=== PATIENT | female | born 1970 | race Caucasian/White ===

== ENCOUNTER 2025-03-13 09:17 | Outpatient (CLI) | payer OTHER, SELFPAY ==
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
--- OUTSIDE RECORDS SUMMARY | 2025-03-13 09:23 | XMS_ITS | Encounter Summary ---
Author Name [facility] [place] Address [address] [place] [address] Care Team Providers Care Specimen Technician Name Role Phone JAHAIRA NIETO Primary Care [...] Patient's Relationship to Policy Ritter [facility] 2024 [facility] Nov 07, 2024 [employer] [id number] VITO MUSTAFA PATIENT Selected Encounter This section includes the information on record at [place] for the Encounter. Date/Time Encounter Type Encounter Description Reason Provider Source April 04, 2024 09:30 AM PSYTX W PT 45 MINUTES [facility] INDIV ICD-10-CM F43.20 Adjustment disorder, unspecified DANIELLE SAVAGE Radha Encounter Template Text not used by [place] Assessments - Encounter Diagnoses This section includes the primary and secondary diagnoses documented for the Encounter. Date/Time Primary/Secondary Diagnosis Diagnosis Name Provider Source April 04, 2024 03:30 PM PRIMARY Adjustment disorder, unspecified DANIELLE SAVAGE [facility] Plan of Treatment: Future Appointments (+ 6 months) and Future Tests (+/- 45 days) The Plan of Treatment section includes future care activities for the patient from all [place] treatmentfacilities. This section includes future appointments and future orders which are active, pending or scheduled. Future Appointments This section includes appointments that were scheduled to occur 6 months from the date of the Encounter, up to a maximum of 20 appointments. The data comes from all [place] treatment facilities. Appointment Date/Time Appointment Type Appointme nt Facility Name Apr 18, 2024 09:30 AM AM[facility]ULATORY [facility] May 31, 2024 09:30 AM AMBULATORY [facility] Jun 07, 2024 09:30 AM AM[facility]ORY [facility] Jul 02, 2024 02:00 PM AMBULATORY - [facility]RY [facility] Aug 01, 2024 09:00 AM AMBULATORY - REHAB MEDICIN E [facility] Aug 07, 2024 10:30 AM AMBULATORY - PSYCHIATRY [facility] Aug 21, 2024 09:30 AM AMBULATORY - PSYCHIATRY [facility] Aug 30, 2024 09:30 AM AMBULATORY - REHAB MEDICIN E [facility] Sep 04, 2024 09:30 AM AM[facility]ULATORY - [facility]RY [facility] Sep 18, 2024 09:30 AM AM[facility]ORY [facility]RY [facility] Social History: Smoking Status (Most current) and Tobacco Use (All prior to encounter date) This section includes the most current, and the historical, smoking and tobacco- related health factors from the [place] facility where the Encounter took place. Current Smoking Status This section includes the most current smoking, or tobacco-related health factor, from the [place] facility where the Encounter took place. Date/Time Current Smoking Status Comment Samy brandt Jan 19, 2024 09:30 AM VA-TOBACCO FORMER USER [facility] Tobacco Use History This section includes a history of the smoking, or tobacco-related health factors, that were collected on or before the date of the Encounter. The data comes from the [place] facility where the Encounter took place. Date/Time Smoking Status/Tobacco Use Comment F accharu Jan 19, 2024 09:30 AM VA-TOBACCO QUIT 15 YRS OR MORE [facility] Encounter Notes: All associated encounter notes This section contains the clinical notes associated to the Encounter. Date/Time Encounter Note(s) Provider Source April 04, 2024 03:39 PM ADDENDUM: LOCAL TITLE: Addendum STANDARD TITLE: ADDENDUM DATE OF NOTE: APRIL 04, 2024@15:39:08 ENTRY DATE: APRIL 04, 2024@15:39:09 AUTHOR: DANIELLE SAVAGE EXP COSIGNER: URGENCY: STATUS: COMPLETED Per 's request, please schedule an appointment with Danielle Savage on 04/18/24 at 9;30am in [facility]-. thanks /es/ DANIELLE SAVAGE Signed: 04/04/2024 15:40 Receipt Acknowledged By: 04/04/2024 15:50 /es/ JERRICA ESPARZA MSA --- Original Document --- 04/04/24 [facility] BRIEF THERAPY NOTE: [facility] Brief Therapy Session #4 Session Date and Time: 04/04/24 at 9:30am Session Length: 45 minutes Session Type: F2F Diagnosis: Adjustment Disorder, unspecified Review of Presenting Problem Huntington continuing to attend brief therapy treatment in [facility] in order to address transitional stressors. This is session 4 of 6 of this episode of care. Risk Assessment (e.g., lethality, suicidality/homicidality): C-SSRS Screening [place]-Suicide Severity Rating Scale (C-SSRS Screener) 1. Over [...] required due to responses to other questions. Brief Mental Status Exam (as applicable) Appearance and Behavior: casual dress, normal grooming, and hygiene Mood/Affect: sad/ angry ; tearful affect Sensorium (orientation, memory, concentration): Ox3 Intellectual Functioning: WNL; no deficits noted Thought Processes/Regulation: goal-directed and logical was reminded of the need to assess progress since last appointment and assess current status of presenting concern, which will be used to adjust treatment interventions if needed and inform primary care team of next steps. Measurement-Based Care: PHQ-9: Date Instrument Raw Trans Scale 03/21/2024 09:32 PHQ9 4 PHQ9 02/22/2024 09:36 PHQ9 2 PHQ9 02/08/2024 09:55 PHQ9 3 PHQ9 JERAMIE-7: Date Instrument Raw Trans Scale 03/21/2024 09:32 JERAMIE-7 5 Anxiety 02/22/2024 09:36 JERAMIE-7 5 Anxiety 02/08/2024 09:55 JERAMIE-7 4 Anxiety PCL-5: Date Instrument Raw Trans Scale 04/04/2024 14:52 PCL-5 58 PCL-5 AUDIT-C: Date Instrument Raw Trans Scale 01/19/2024 09:30 AUDC 1 Total was administered the following self-report instruments to further assess identified area of concern and the use of these intruments to assist in guiding treatment planning and assess progress was discussed with the . PTSD Checklist-5 (PCL-5; Trauma Related Symptoms): (Note: 0-10: Minimal; 11-20: Mild; 21-40: Moderate; 41-60: Severe; 61-80: Very Severe symptoms) Pain Measure reported pain to be a significant concern to address today and reports the following pain levels related to hip Homework Review Discussed with Huntington progress on interventions agreed upon at last appointment. Functional Assessment/Progress Toward Goals/Session Content ------ Discussed with Huntington status of presenting problem and it's impact on functioning and changes since the prior visit, including progress towards current goals. stated, the stress levels have been up there this past month. Upon further dialogue, Mary reflected on the difficulty of navigating Day. In particular, Mary discussed residual grief associated with the passing of her . She disclosed that her during the Covid-19 pandemic and she believes that his was due in part to stipulations placed upon citizens (e.g., vaccinations). Mary also shared that in response to her values and political beliefs she has been considered an outcast, which has led to the severing of both personal and professional relationships. Together, Huntington and provider worked to identify the underlying emotions she has harbored in response to these life stressors (e.g., anger ; sadness ). Intervention: Psychoeducation Supportive Psychotherapy/Reflection/Va lidation Treatment Plan and Follow-up - Patient Goals: Increase Relaxation Skills Homework/Handouts: Other: Continue self-care e.g., yoga w/ daughters Plans for Follow-up: Continue Brief Therapy with [facility] Provider Return to Clinic Follow-Up Appointment: 04/18/24 at 9:30am Visit Duration: 45 minutes Patient records have been reviewed. Informed/Reviewed with about MH resources in case of crisis including the Veterans Crisis Line number (press 1) and emergency room services. Outcome and recommendations will be discussed with the referring provider and other relevant PACT team members as needed. /guilherme/ DANIELLE SAVAGE Signed: 04/04/2024 15:39 04/04/2024 ADDENDUM STATUS: UNSIGNED You may not VIEW this UNSIGNED Addendum. DANIELLE SAVAGE [facility] April 04, 2024 02:53 PM MENTAL HEALTH DIAG NOSTIC STUDY NOTE: LOCAL TITLE: MENTAL HEALTH DIAGNOSTIC STUDY NOTE STANDARD TITLE: MENTAL HEALTH DIAGNOSTIC STUDY NOTE DATE OF NOTE: APRIL 04, 2024@14:53:25 ENTRY DATE: APRIL 04, 2024@14:53:25 AUTHOR: DANIELLE SAVAGE EXP COSIGNER: URGENCY: STATUS: COMPLETED These assessments were completed by NICOL MUSTAFA via provider direct entry on 04/04/2024 2:52:49 PM. PTSD CHECKLIST (PCL-5) - MONTHLY Patient reported being bothered by the following over the past month: 1. Disturbing memories: Moderately 2. Disturbing dreams: A little bit 3. Re-experiencing events: Quite a bit 4. Cued distress: Extremely 5. Cued physical symptoms: Quite a bit 6. Avoiding internal reminders: Extremely 7. Avoiding external reminders: Extremely 8. Trouble with recall: A little bit 9. Negative beliefs: Extremely 10. Blaming self/others: Extremely 11. Negative feelings: Extremely 12. Loss of interest: Extremely 13. Feeling distant from others: Extremely 14. Feeling numb: Quite a bit 15. Feeling irritable: Quite a bit 16. Reckless behavior: A little bit 17. Being super-alert : Quite a bit 18. Feeling easily startled: A little bit 19. Difficulty concentrating: Quite a bit 20. Trouble sleeping: Moderately PCL-5 total score = 58 This measure assesses an individual's perception of the distress associated with possible PTSD symptoms. It is not used to diagnose PTSD. Symptoms are rated from 0-4 in terms of distress they cause the individual. Scores that are greater than or equal to 31-33 suggest that the may meet the criteria for a PTSD diagnosis. However, it is important to use caution when using this cutoff since it is possible for some Veterans with scores lower than 31-33 to meet criteria for PTSD. Additional testing using a structured diagnostic interview, such as the Clinician Administered PTSD Scale for DSM-5, is recommended to confirm diagnostic status. /guilherme/ DANIELLE SAVAGE Signed: 04/04/2024 14:53 DANIELLE SAVAGE [facility] April 04, 2024 02:53 PM MENTAL HEALTH NOTE : LOCAL TITLE: [facility] BRIEF THERAPY NOTE STANDARD TITLE: MENTAL HEALTH NOTE DATE OF NOTE: APRIL 04, 2024@14:53 ENTRY DATE: APRIL 04, 2024@14:54:14 AUTHOR: DANIELLE SAVAGE EXP COSIGNER: URGENCY: STATUS: COMPLETED [facility] BRIEF THERAPY NOTE Has ADDENDA [facility] Brief Therapy Session #4 Session Date and Time: 04/04/24 at 9:30am Session Length: 45 minutes Session Type: F2F Diagnosis: Adjustment Disorder, unspecified Review of Presenting Problem continuing to attend brief therapy treatment in [facility] in order to address transitional stressors. This is session 4 of 6 of this episode of care. Risk Assessment (e.g., lethality, suicidality/homicidality): C-SSRS Screening [place]-Suicide Severity Rating Scale (C-SSRS Screener) 1. Over [...] required due to responses to other questions. Brief Mental Status Exam (as applicable) Appearance and Behavior: casual dress, normal grooming, and hygiene Mood/Affect: sad/ angry ; tearful affect Sensorium (orientation, memory, concentration): Ox3 Intellectual Functioning: WNL; no deficits noted Thought Processes/Regulation: goal-directed and logical was reminded of the need to assess progress since last appointment and assess current status of presenting concern, which will be used to adjust treatment interventions if needed and inform primary care team of next steps. Measurement-Based Care: PHQ-9: Date Instrument Raw Trans Scale 03/21/2024 09:32 PHQ9 4 PHQ9 02/22/2024 09:36 PHQ9 2 PHQ9 02/08/2024 09:55 PHQ9 3 PHQ9 JERAMIE-7: Date Instrument Raw Trans Scale 03/21/2024 09:32 JERAMIE-7 5 Anxiety 02/22/2024 09:36 JERAMIE-7 5 Anxiety 02/08/2024 09:55 JERAMIE-7 4 Anxiety PCL-5: Date Instrument Raw Trans Scale 04/04/2024 14:52 PCL-5 58 PCL-5 AUDIT-C: Date Instrument Raw Trans Scale 01/19/2024 09:30 AUDC 1 Total Huntington was administered the following self-report instruments to further assess identified area of concern and the use of these intruments to assist in guiding treatment planning and assess progress was discussed with the Huntington. PTSD Checklist-5 (PCL-5; Trauma Related Symptoms): (Note: 0-10: Minimal; 11-20: Mild; 21-40: Moderate; 41-60: Severe; 61-80: Very Severe symptoms) Pain Measure Huntington reported pain to be a significant concern to address today and reports the following pain levels related to hip Homework Review Discussed with Huntington progress on interventions agreed upon at last appointment. Functional Assessment/Progress Toward Goals/Session Content ------ Discussed with status of presenting problem and it's impact on functioning and changes since the prior visit, including progress towards current goals. Huntington stated, the stress levels have been up there this past month. Upon further dialogue, Huntington reflected on the difficulty of navigating Day. In particular, Huntington discussed residual grief associated with the passing of her . She disclosed that her during the Covid-19 pandemic and she believes that his was due in part to stipulations placed upon citizens (e.g., vaccinations). Mary also shared that in response to her values and political beliefs she has been considered an outcast, which has led to the severing of both personal and professional relationships. Together, Huntington and provider worked to identify the underlying emotions she has harbored in response to these life stressors (e.g., anger ; sadness ). Intervention: Psychoeducation Supportive Psychotherapy/Reflection/[place] lidation Treatment Plan and Follow-up - Patient Goals: Increase Relaxation Skills Homework/Handouts: Other: Continue self-care e.g., yoga w/ daughters Plans for Follow-up: Continue Brief Therapy with [facility] Provider Return to Clinic Follow-Up Appointment: 04/18/24 at 9:30am Visit Duration: 45 minutes Patient records have been reviewed. Informed/Reviewed with about MH resources in case of crisis including the Veterans Crisis Line number (press 1) and emergency room services. Outcome and recommendations will be discussed with the referring provider and other relevant PACT team members as needed. /guilherme/ DANIELLE SAVAGE Signed: 04/04/2024 15:39 04/04/2024 ADDENDUM STATUS: COMPLETED Per 's request, please schedule an appointment with Danielle Savage on 04/18/24 at 9;30am in [facility]. thanks /guilherme/ DANIELLE SAVAGE Signed: 04/04/2024 15:40 Receipt Acknowledged By: 04/04/2024 15:50 /guilherme/ JERRICA ESPARZA MSA 04/04/2024 ADDENDUM STATUS: COMPLETED Scheduled the following appt per provider request. Please see below for details. [facility] Apr 18, 2024@09:30 [facility] SCHEDULED 9:30AM PER NOTES ON 04/04/24 *MAILED APPT REMINDER LETTER* /guilherme/ JERRICA ESPARZA MSA Signed: 04/04/2024 15:50 DANIELLE SAVAGE [facility]
--- OUTSIDE RECORDS SUMMARY | 2025-03-13 09:23 | XMS_ITS | Encounter Summary ---
Author Name [facility] [place] Address [address] [place] [address] Care Team Providers Care Sample Examiner Name Role Phone JAHAIRA NIETO Primary Care [...] Ritter's Name Patient's Relationship to Policy Ritter [facility] 2024 [facility] Nov 07, 2024 [facility] [id number] VITO MUSTAFA PATIENT Selected Encounter This section includes the information on record at [place] for the Encounter. Date/Time Encounter Type Encounter Description Reason Provider Source Sep 04, 2024 09:30 AM PSYTX W PT 60 MINUTES [facility] - IND ICD-10-CM F43.9 Reaction to severe stress, unspecified SANFORD GARZA Radha Encounter Template Text not used by [place] Assessments - Encounter Diagnoses This section includes the primary and secondary diagnoses documented for the Encounter. Date/Time Primary/Secondary Diagnosis Diagnosis Name Provider Source Sep 04, 2024 02:54 PM PRIMARY Reaction to severe stress, unspecified [facility] Sep 04, 2024 02:54 PM SECONDARY Generalized anxiety disorder [facility] Plan of Treatment: Future Appointments (+ 6 months) and Future Tests (+/- 45 days) The Plan of Treatment section includes future care activities for the patient from [facility] [place] [facility] This section includes future appointments and future orders which are active, pending or scheduled. Future Appointments This section includes appointments that were scheduled to occur 6 months from the date of the Encounter, up to a maximum of 20 appointments. The data comes from all [place] treatment facilities. Appointment Date/Time Appointment Type Appointme nt Facility Name Sep 18, 2024 09:30 AM AMBULATORY - PSYCHIATRY [facility] Oct 09, 2024 09:30 AM AMBULATORY - PSYCHIATRY [facility] Nov 27, 2024 09:30 AM AMBULATORY - PSYCHIATRY [facility] Dec 11, 2024 09:30 AM AMBULATORY - PSYCHIATRY [facility] Jan 08, 2025 09:30 AM AMBULATORY - PSYCHIATRY [facility] Feb 22, 2025 09:30 AM AMBULATORY PSYCHIATRY [facility] Social History: Smoking Status (Most current) and Tobacco Use (All prior to encounter date) This section includes the most current, and the historical, smoking and tobacco- related health factors from the [place] facility where the Encounter took place. Current Smoking Status This section includes the most current smoking, or tobacco-related health factor, from the [place] facility where the Encounter took place. Date/Time Current Smoking Status Comment Samy brandt Jan 19, 2024 09:30 AM VA-TOBACCO FORMER USER [facility] Tobacco Use History This section includes a history of the smoking, or tobacco-related health factors, that were collected on or before the date of the Encounter. The data comes from the [place] facility where the Encounter took place. Date/Time Smoking Status/Tobacco Use Comment F acility Jan 19, 2024 09:30 AM [place]-TOBACCO QUIT 15 YRS OR MORE [facility] Encounter Notes: All associated encounter notes This section contains the clinical notes associated to the Encounter. Date/Time Encounter Note(s) Provider Source Sep 04, 2024 01:23 PM MENTAL HEALTH NOTE : LOCAL TITLE: [facility] PSYCHOTHERAPY NOTE STANDARD TITLE: MENTAL HEALTH NOTE DATE OF NOTE: SEP 04, 2024@13:23 ENTRY DATE: SEP 04, 2024@13:24:32 AUTHOR: SANFORD GARZA COSIGNER: URGENCY: STATUS: COMPLETED Date of Session: SEP 04, 2024 Duration of Session: 60 minutes Session Number: 3 Diagnosis Addressed During Session: Reaction to severe stress,unspecified; JERAMIE Session Format: Face to face Reason for Session: anxiety symptoms Rationale for Duration of Session: Individual therapy What matters most to you in your life right now? simplifying my life Mental Status: Appearance: Appropriately dressed and well groomed, not in acute distress Orientation/Alertness: Oriented to person, place, and time Attitude: Cooperative Behavior: Calm Speech: Normal in tone, rate, volume and amount Mood: Dysthymic Affect: Congruent to mood Thought Process: Linear, Goal directed Thought Content: Appropriate to mood and circumstances Hallucinations: denies Suicidal ideation: denies Memory: Normal Attention/Concentration: wnl Insight: Shows awareness of self and problems Judgment: Normal Capacity to make treatment decisions and engage in treatment planning: intact C-SSRS Screening Napoleon-Suicide Severity Rating Scale (C-SSRS Screener) 1. Over [...] Data: Whole Health Interventions Session Content: reported an increase in stress related to work. gave an explanation of the situation and how she tried to express the impact their lack of action will have on people who are depending on them. They was just a continuation of what I have experienced and I'm trying to get away from. This provider acknowledged and validated the impact on her trying to do the right thing. Discussed the importance of recognizing that is an unhealthy envronment and not internalizing it. Encouraged identifying healthy activities and incorporating them into her routine. Therapeutic Intervention: empathic listening, validation, psychoeducation Patient Response to Treatment: actively engaged, insightful, self-aware, receptive to feedback Progress Towards Treatment Goal: positive progress Plan and Scheduling Instructions: 09/18@9:30am & 10/09@9:30am Pain management, if needed, is managed by primary care. Reason for Ordering Tests, Consults or Changes in Medications: /guilherme/ NITZA Nelson, MAP COMPILER LICENSED CLINICAL LAB HEAD Signed: 09/04/2024 14:55 SANFORD GARZA [facility]
--- OUTSIDE RECORDS SUMMARY | 2025-03-13 09:23 | XMS_ITS | Encounter Summary ---
Author Name [facility] [place] Organization [place] Address [address] [place] [address] Care Team Providers Care Cook Frozen Dessert Name Role Phone JAHAIRA NIETO Primary Care [...] Ritter's Name Patient's Relationship to Policy Ritter [facility] 2024 [facility] Nov 07, 2024 [facility] [id number] VITO MUSTAFA PATIENT Selected Encounter This section includes the information on record at [place] for the Encounter. Date/Time Encounter Type Encounter Description Reason Pro vider Source Jan 23, 2025 06:44 AM Outpatient Encounter ADMIN PAT ACTIVTIES (MASNONCT) IHE Encounter Template Text not used by [place] Plan of Treatment: Future Appointments (+ 6 months) and Future Tests (+/- 45 days) The Plan of Treatment section includes future care activities for the patient from all [place] treatmentfacilities. This section includes future appointments and future orders which are active, pending or scheduled. Future Appointments This section includes appointments that were scheduled to occur 6 months from the date of the Encounter, up to a maximum of 20 appointments. The data comes from all [place] treatment facilities. Appointment Date/Time Appointment Type Appointme nt Facility Name Feb 22, 2025 09:30 AM AMBULATORY - PSYCHIATRY [facility] March 18, 2025 09:30 AM AMBULATORY - PSYCHIATRY [facility] Social History: Smoking Status (Most current) and Tobacco Use (All prior to encounter date) This section includes the most current, and the historical, smoking and tobacco- related health factors from the [facility] where the Encounter took place. Current Smoking Status This section includes the most current smoking, or tobacco-related health factor, from the [place] facility where the Encounter took place. Date/Time Current Smoking Status Comment Facil ity Jan 19, 2024 09:30 AM VA-TOBACCO FORMER USER [facility] Tobacco Use History This section includes a history of the smoking, or tobacco-related health factors, that were collected on or before the date of the Encounter. The data comes from the [place] facility where the Encounter took place. Date/Time Smoking Status/Tobacco Use Comment F accharu Jan 19, 2024 09:30 AM VA-TOBACCO QUIT 15 YRS OR MORE [facility] Encounter Notes: All associated encounter notes This section contains the clinical notes associated to the Encounter. Date/Time Encounter Note(s) Provider Source Jan 23, 2025 06:44 AM CLINICAL WARNING: LOCAL TITLE: TCM NEW COMBAT NOTE STANDARD TITLE: CLINICAL WARNING DATE OF NOTE: JAN 23, 2025@06:44 ENTRY DATE: JAN 23, 2025@06:44:40 AUTHOR: REE VILCHIS EXP COSIGNER: URGENCY: STATUS: COMPLETED Is eligible for care? Yes Reason: Other record loads Date of Discharge: 11/25/1996 Combat Vet Status: No Dates of Combat Service: to None Class II Dental Eligible: No Patient placed on EWL: No Previous [place] care: Yes /guilherme/ REE VILCHIS ADVANCED PUBLIC INFORMATION COORDINATOR Signed: 01/23/2025 06:46 Receipt Acknowledged By: 01/23/2025 09:53 /es/ CHEYENNE EDEN 01/23/2025 15:18 /guilherme/ AKUA COLON SUPERVISORY PUBLIC INFORMATION COORDINATOR 01/24/2025 08:15 /es/ Ramu Clayton LCSW POST 07/18 [id number] DRY CLEANING TEACHER 01/23/2025 07:27 /es/ ADARSH MENA LCSW Post 07/18 M2REE [facility]
--- OUTSIDE RECORDS SUMMARY | 2025-03-13 09:23 | XMS_ITS | Encounter Summary ---
Author Name [facility] [place] Address [address] [place] [address] Care Team Providers Care Icing Machine Operator Name Role Phone JAHAIRA NIETO Primary Care [...] Ritter's Name Patient's Relationship to Policy Ritter [facility] 2024 [facility] Nov 07, 2024 [facility] [id number] VITO MUSTAFA PATIENT Selected Encounter This section includes the information on record at [place] for the Encounter. Date/Time Encounter Type Encounter Description Reason Provider Source Sep 18, 2024 09:30 AM PSYTX W PT 60 MINUTES [facility] - IND ICD-10-CM F43.9 Reaction to severe stress, unspecified SANFORD GARZA Radha Encounter Template Text not used by [place] Assessments - Encounter Diagnoses This section includes the primary and secondary diagnoses documented for the Encounter. Date/Time Primary/Secondary Diagnosis Diagnosis Name Provider Source Sep 18, 2024 01:25 PM PRIMARY Reaction to severe stress, unspecified [facility] Sep 18, 2024 01:25 PM SECONDARY Generalized anxiety disorder [facility] Plan of Treatment: Future Appointments (+ 6 months) and Future Tests (+/- 45 days) The Plan of Treatment section includes future care activities for the patient [facility] [place] [facility]. This section includes future appointments and future orders which are active, pending or scheduled. Future Appointments This section includes appointments that were scheduled to occur 6 months from the date of the Encounter, up to a maximum of 20 appointments. The data comes from all [place] treatment facilities. Appointment Date/Time Appointment Type Appointme nt Facility Name Oct 09, 2024 09:30 AM AMBULATORY - PSYCHIATRY [facility] Nov 27, 2024 09:30 AM AMBULATORY - PSYCHIATRY [facility] Dec 11, 2024 09:30 AM AMBULATORY - PSYCHIATRY [facility] Jan 08, 2025 09:30 AM AMBULATORY - PSYCHIATRY [facility] Feb 22, 2025 09:30 AM AMBULATORY - PSYCHIATRY [facility] March 18, 2025 09:30 AM AMBULATORY PS[facility]CHIATRY [facility] Social History: Smoking Status (Most current) and Tobacco Use (All prior to encounter date) This section includes the most current, and the historical, smoking and tobacco- related health factors from the [place] facility where the Encounter took place. Current Smoking Status This section includes the most current smoking, or tobacco-related health factor, from the [place] facility where the Encounter took place. Date/Time Current Smoking Status Comment Samy brandt Jan 19, 2024 09:30 AM VA-TOBACCO FORMER USER [facility] Tobacco Use History This section includes a history of the smoking, or tobacco-related health factors, that were collected on or before the date of the Encounter. The data comes from the [place] facility where the Encounter took place. Date/Time Smoking Status/Tobacco Use Comment F accharu Jan 19, 2024 09:30 AM [place]-TOBACCO QUIT 15 YRS OR MORE [facility] Encounter Notes: All associated encounter notes This section contains the clinical notes associated to the Encounter. Date/Time Encounter Note(s) Provider Source Sep 18, 2024 11:34 AM MENTAL HEALTH NOTE : LOCAL TITLE: [facility] PSYCHOTHERAPY NOTE STANDARD TITLE: MENTAL HEALTH NOTE DATE OF NOTE: SEP 18, 2024@11:34 ENTRY DATE: SEP 18, 2024@11:34:24 AUTHOR: SANFORD GARZA COSIGNER: URGENCY: STATUS: COMPLETED Date of Session: SEP 18, 2024 Duration of Session: 60 minutes Session Number: 4 Diagnosis Addressed During Session: Reaction to severe stress,unspecified; JERAMIE Session Format: Face to face Reason for Session: anxiety Rationale for Duration of Session: Individaul therapy What matters most to you in your life right now? my family and simplifying my life Mental Status: Appearance: Appropriately [...] engage in treatment planning: intact C-SSRS Screening [place]-Suicide Severity Rating Scale (C-SSRS Screener) 1. Over [...] Assessment Data: Whole Health Interventions Session Content: expressed increased stress related to Thanksgiving. She is planning on going to see family an dis looking forward to it overall but is dreading being around her [id number]. Falconer discussed actions that she has done which sees as spiteful. Validated he reactions and discussed coping skills to manage any distress she feels during her interaction. Also processed work related stressors. Focused on her impending half-way and how this gives her a specific target date. She commented, do they have to make it as difficult as possible until then . Acknowledged and normalized her feelings. Pointed out past situations and encouraged using those moments as motivation and strength Therapeutic Intervention: CBT, empathic listening, validation, problem solving Patient Response to Treatment: actively engaged, insightful, able to identify useful skills and techniques Progress Towards Treatment Goal: positive progress toward goals Plan and Scheduling Instructions: 10/09@9:30am & 11/13/24@9:30am Pain management, if needed, is managed by primary care. Reason for Ordering Tests, Consults or Changes in Medications: /guilherme/ NITZA Nelson, TICK INSPECTOR LICENSED CLINICAL OPHTHALMIC TECH Signed: 09/18/2024 13:[address] [facility]
--- OUTSIDE RECORDS SUMMARY | 2025-03-13 09:23 | XMS_ITS | Encounter Summary ---
Author Name [facility] [place] Address [address] [place] [address] Care Team Providers Care Mine Inspector Federal Name Role Phone JAHAIRA NIETO Primary Care [...] Ritter's Name Patient's Relationship to Policy Ritter [facility] 2024 [facility] Nov 07, 2024 [facility] [id number] VITO MUSTAFA PATIENT Selected Encounter This section includes the information on record at [place] for the Encounter. Date/Time Encounter Type Encounter Description Reason Provider Source Aug 07, 2024 10:30 AM PSYTX W PT 60 MINUTES [facility] - IND ICD-10-CM F41.1 Generalized anxiety disorder SANFORD GARZA Encounter Template Text not used by [place] Assessments - Encounter Diagnoses This section includes the primary and secondary diagnoses documented for the Encounter. Date/Time Primary/Secondary Diagnosis Diagnosis Name Provider Source Aug 07, 2024 06:02 PM PRIMARY Generalized anxiety disorder [facility] Plan of Treatment: Future Appointments (+ 6 months) and Future Tests (+/- 45 days) The Plan of Treatment section includes future care activities for the patient from all [place] treatment[place]ilities. This section includes future appointments and future orders which are active, pending or scheduled. Future Appointments This section includes appointments that were scheduled to occur 6 months from the date of the Encounter, up to a maximum of 20 appointments. The data comes from all [place] treatment facilities. Appointment Date/Time Appointment Type Appointme nt Facility Name Aug 21, 2024 09:30 AM [facility] Aug 30, 2024 09:30 AM AMBULATORY - REHAB [facility]IC[facility] Sep 04, 2024 09:30 AM [facility] Sep 18, 2024 09:30 AM AMBULATORY - PS[facility]CHIATRY [facility] Oct 09, 2024 09:30 AM AMBULATORY - PS[facility]CHIATRY [facility] Nov 27, 2024 09:30 AM [facility] Dec 11, 2024 09:30 AM AMBULATORY - PS[facility]CHIATRY [facility] Jan 08, 2025 09:30 AM AMBULATORY - PS[facility]CHIATRY [facility] Social History: Smoking Status (Most current) and Tobacco Use (All prior to encounter date) This section includes the most current, and the historical, smoking and tobacco- related health factors from the [place] facility where the Encounter took place. Current Smoking Status This section includes the most current smoking, or tobacco-related health factor, from the [place] facility where the Encounter took place. Date/Time Current Smoking Status Comment Samy ity Jan 19, 2024 09:30 AM VA-TOBACCO FORMER USER [facility] Tobacco Use History This section includes a history of the smoking, or tobacco-related health factors, that were collected on or before the date of the Encounter. The data comes from the [place] facility where the Encounter took place. Date/Time Smoking Status/Tobacco Use Comment F acility Jan 19, 2024 09:30 AM [place]-TOBACCO QUIT 15 YRS OR MORE [facility] Encounter Notes: All associated encounter notes This section contains the clinical notes associated to the Encounter. Date/Time Encounter Note(s) Provider Source Aug 07, 2024 03:28 PM MENTAL HEALTH NOTE : LOCAL TITLE: [facility] PSYCHOTHERAPY NOTE STANDARD TITLE: MENTAL HEALTH NOTE DATE OF NOTE: AUG 07, 2024@15:28 ENTRY DATE: AUG 07, 2024@15:28:45 AUTHOR: SANFORD GARZA COSIGNER: URGENCY: STATUS: COMPLETED Date of Session: AUG 07, 2024 Duration of Session: 60 minutes Session Number: Diagnosis Addressed During Session: JERAMIE Session Format: Face to face Reason [...] engage in treatment planning: intact C-SSRS Screening [place]-Suicide Severity Rating Scale (C-SSRS Screener) 1. Over [...] Data: Whole Health Interventions Session Content: reported she has been trying to stay focused on simplifying her life and avoiding people at work who raise her stress level. Discuss what simplying means to her. 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 She stated that she is still trying to prepare to put it on the market but her agent has already received interest from 4 people. Pease also identified her another stressor is her concern for her children to be independent and not remaining under her roof. Validated and normalized her feelings. Pointed out this a something that has 3 parts starting with her preparing them for independence, and them applying what they learned, and finally her setting and enforcing boundaries. Therapeutic Intervention: empathic listening, strategic reflection, supportive psychotherapy Patient Response to Treatment: open and engaged, insight, receptive to feedback Progress Towards Treatment Goal: appears motivated Plan and Scheduling Instructions: 08/21@9:30am Pain management, if needed, is managed by primary care. Reason for Ordering Tests, Consults or Changes in Medications: Sexual Orientation: The patient thinks of their sexual orientation as: Straight or Heterosexual /es/ NITZA Nelson, SELF RISING FLOUR MIXER LICENSED CLINICAL CAR PACKER Signed: 08/07/2024 18:03 [facility] Jul 30, 2024 03:38 PM MENTAL HEALTH DIAG NOSTIC STUDY NOTE: LOCAL TITLE: MENTAL HEALTH DIAGNOSTIC STUDY NOTE STANDARD TITLE: MENTAL HEALTH DIAGNOSTIC STUDY NOTE DATE OF NOTE: JUL 30, 2024@15:38:40 ENTRY DATE: JUL 30, 2024@15:38:40 AUTHOR: MELCHOR SNIDER COSIGNER: URGENCY: STATUS: COMPLETED Assessments were sent to the via text/email. These assessments were completed by NICOL MUSTAFA on their own device on 07/30/2024 2:40:41 PM. PATIENT HEALTH QUESTIONNAIRE-9 (PHQ-9) The patient reported some symptoms of depression; symptoms are not consistent with a major depressive episode. Patient reported being bothered by the following over the last 2 weeks: 1. Little interest or pleasure: Several Days 2. Feeling down, depressed or hopeless: Not at all 3. Trouble sleeping: Several Days 4. Tired, low energy: Several Days 5. Poor appetite, over-eating: Several Days 6. Feelings of failure, guilt: Not at all 7. Trouble concentrating: Several Days 8. Motor retardation, agitation: Not at all 9. Thoughts better off /hurting self: Not at all PHQ-9 total score = 5 1-4 = minimal symptoms 5-9= mild symptoms 10-14= moderate symptoms 15-19= moderately severe symptoms 20-27= severe depressive symptoms The patient stated that the depressive symptoms made it somewhat difficult to work, take care of things at home, or get along with others. PHQ-9 Total Score (past 180 days): 07/30/2024 5 03/21/2024 4 02/22/2024 2 02/08/2024 3 GENERAL ANXIETY DISORDER-7 (JERAMIE-7) Patient reported being bothered by the following over the last two weeks: 1. Feeling nervous, anxious or on edge: Several days 2. Not being able to stop or control worrying: Not at all 3. Worrying too much about different things: Several days 4. Trouble relaxing: More than half the days 5. Feeling restless (hard to sit still): Several days 6. Becoming easily annoyed or irritable: More than half the days 7. Afraid as if something awful might happen: Not at all JERAMIE-7 total score = 7 0-4=minimal symptoms 5-9=mild symptoms 10-14=moderate symptoms 15-21=severe symptoms The patient stated that the anxiety symptoms made it somewhat difficult to work, take care of things at home, or get along with others. JERAMIE-7 Total Score (past 180 days): 07/30/2024 7 03/21/2024 5 02/22/2024 5 02/08/2024 4 /guilherme/ Melchor Snider SELF RISING FLOUR MIXER Mental Health Cloth Finishing Range Operator Chief Signed: 07/30/2024 15:39 Receipt Acknowledged By: 07/30/2024 17:12 /es/ NITZA Nelson LCSW LICENSED CLINICAL CAR PACKER [facility]
--- OUTSIDE RECORDS SUMMARY | 2025-03-13 09:23 | XMS_ITS | Continuity of Care Document ---
Author Name [facility] Organization [facility] Care Team Providers Care Crime Analyst Name Role Phone [facility] Unavailable Unavailable Problems Combined list of problems from Department of Defense and [facility] Affairs facilities. It does not include entries that were removed or entered in error. Problem Status Onset Date Problem Type Date of Resolution Comments Source Disappearance and of family member Active Condition [facility] Insomnia, unspecified Active Condition [facility] Incomplete rotator cuff tear or rupture of right shoulder, not specified as traumatic Active Condition DoD Pain in right hip Active Condition D oD visit for: administrative purpose Active Condition [facility] Cognitive deficit in communication skills Active Condition [facility] Lower Back Pain Active Condition [facility] numbness lt. leg Active Condition [facility] [place] State, Incidental Active Condition [facility] s/p tubal ligation 01/2008 Active Condition [facility] Syncopal vertigo Active Condition [facility] Diagnosis: ICD-10-CM F43.9 Reaction to severe stress, unspecified Active Diagnosis [facility] Diagnosis: ICD-10-CM Z71.89 Other specified counseling Active Diagnosis [facility] Diagnosis: ICD-10-CM R41.841 Cognitive communication deficit Active Diagnosis [facility] Diagnosis: ICD-10-CM F41.1 Generalized anxiety disorder Active Diagnosis [facility] Diagnosis: ICD-10-CM F80.1 Expressive language disorder Active Diagnosis [facility] Diagnosis: ICD-10-CM F43.20 Adjustment disorder, unspecified Active Diagnosis [facility] Diagnosis: ICD-10-CM Z13.6 Encounter for screening for cardiovascular disorders Active Diagnosis [facility] Diagnosis: ICD-10-CM H81.8X9 Other disorders of vestibular function, unspecified ear Active Diagnosis [facility] Medications Combined list of outpatient medications from Department of Defense and [facility] Affairs facilities.Medications provided include 1) outpatient medications from the last 15 months, and 2) patient-reported medications. Medication Details Route Status Patient Instructions Prescription Expires Prescription Number Last Dispense Date Ordering Provider Order Date Order Qty Source ACETAMINOPH EN 500MG/DIPHE NHYDRAMINE HCL 38MG TAB TAKE ONE TABLET BY MOUTH DAILY ORAL ACTIVE GERSONTAR A VLAD 2023 [place] [facility] amoxicillin 500 mg oral capsule 0 total refill(s ) Ordered 2021 No Facilit y Access bromphenira mine/dextro methorphan/ pseudoePHED rine 2 mg-10 mg-30 mg/5 mL oral syrup bromphen iramine/ dextrome thorphan /pseudoe PHEDrine 2 mg-10 mg-30 mg/5 mL oral syrup Start Date: 10/09/21 Status: Ordered Repeat number: 1 Ordered 2021 No Facilit y Access diclofenac 1% topical gel diclofen ac 1% topical gel Start Date: 01/20/22 Status: Ordered Repeat number: 1 Ordered 2021 No Facilit y Access diclofenac sodium 75 mg oral delayed release tablet diclofen ac sodium 75 mg oral delayed release tablet Start Date: 05/20/21 Status: Ordered Repeat number: 1 Ordered 2021 No Facilit y Access diclofenac sodium 75 mg oral delayed release tablet diclofen ac sodium 75 mg oral delayed release tablet Start Date: 01/13/21 Status: Ordered Repeat number: 1 Ordered 2021 No Facilit y Access FLUDROCORTI SONE ACETATE 0.1MG TAB TAKE ONE TABLET BY MOUTH DAILY NEEDED ORAL ACTIVE GERSONTAR A VLAD 2023 [place] [facility] MECLIZINE HCL 12.5MG TAB TAKE ONE TABLET BY MOUTH PRN ORAL ACTIVE GERSON,TAR A VLAD 2023 [place] [facility] meloxicam 15 mg oral tablet meloxica m 15 mg oral tablet Start Date: 03/12/21 Status: Ordered Repeat number: 1 Ordered 2021 No Facilit y Access ONDANSETRON HCL 4MG TAB,ORALLY DISINTEGRAT ING DISSOLVE ONE TABLET IN MOUTH DAILY NEEDED ORAL ACTIVE GERSON,TAR A VLAD 2023 [place] [facility] OXYCODONE-A CETAMINOPHE N (oxycodone HCl/acetami nophen), 5 MG-325MG, TABLET, ORAL, [employer] INC, 500 e OXYCODON E-ACETAM INOPHEN (oxycodo ne HCl/acet aminophe n), 5 MG-325MG , TABLET, ORAL, [employer]OG[employer] INC, 500 e Start Date: 12/29/20 Status: Ordered Repeat number: 1 Ordered 2021 No Facilit y Access zolpidem 10 mg oral tablet zolpidem 10 mg oral tablet Start Date: 08/12/21 Status: Ordered Repeat number: 1 Ordered 2021 No Facilit y Access zolpidem 10 mg oral tablet zolpidem 10 mg oral tablet Start Date: 01/13/21 Status: Ordered Repeat number: 1 Ordered 2021 No Facilit y Access zolpidem 10 mg oral tablet zolpidem 10 mg oral tablet Start Date: 12/28/21 Status: Ordered Repeat number: 1 Ordered 2021 No Facilit y Access zolpidem 10 mg oral tablet zolpidem 10 mg oral tablet Start Date: 10/28/21 Status: Ordered Repeat number: 1 Ordered 2021 No Facilit y Access Immunizations Combined list of available immunizations from the Department of Defense and Veterans Affairs facilities. Immunization Series Date Given Administered By Site Reaction Lot Number CVX Code Drug Vascular Physician Status Comments Source TD (ADULT), 5 LF TETANUS TOXOID, PRESERVATIVE FREE, ADSORBED 2023 Tiara LEE LEFT DELTO ID [id number] complet ed ADMINISTE [facility] AT [place], [place] [facility] INFLUENZA, UNSPECIFIED FORMULATION 2022 88 complet ed HISTORICA L INFORMATI ON - FROM PATIENT'S RECALL, [place] [facility] influenza, injectable, quadrivalent 2020 [id number] GlaxoSmithKli ne complet ed influenza , injectabl e, quadrival ent 08/23/21 Given Ambulat ory Pharmac y COVID Vaccine Pfizer 2020 [id number] PFIZER complet ed COVID Vaccine Pfizer 08/22/21 Given Ambulat ory Pharmac y COVID Vaccine Pfizer 2020 [id number] PFIZER complet ed COVID Vaccine Pfizer 07/19/21 Given Ambulat ory Pharmac y influenza, injectable, quadrivalent- pf 2019 [id number] 150 complet ed influenza , injectabl e, quadrival ent-pf 09/29/20 Given Ambulat ory Pharmac y Influenza, injectable, quadrivalent, preservative free 1 2019 [id number] 150 Transcribed (TRS) complet ed Influenza , injectabl e, quadrival ent, preservat dave free DoD INFLUENZA, RECOMBINANT, QUADRIVALENT, INJECTABLE, PRESERVATIVE FREE 2019 185 complet ed HISTORICA L INFORMATI ON - FROM OTHER PROVIDER, Partner:Ari HUDDLESTON2.Admin istered by:[facility] [phone] [id number]) .[facility]:[id number] ddress:[id number] [id number] Dosage: ML 0.5 [facility] influenza, injectable, quadrivalent- pf 2018 [id number] 150 Seqirus complet ed influenza , injectabl e, quadrival ent-pf 09/22/19 Given Ambulat ory Pharmac y Influenza, injectable, quadrivalent, preservative free 12 2018 [id number] 150 Seqirus (SEQ) complet ed Influenza , injectabl e, quadrival ent, preservat dave free [facility] tetanus-dipht h toxoids (Td) adult/adol 2018 [id number] [employer] complet ed tetanus-d iphth toxoids (Td) adult/ado l 06/16/19 Given Ambulat ory Pharmac y tetanus and diphtheria toxoids, adsorbed, preservative free, for adult use (2 Lf of tetanus toxoid and 2 Lf of diphtheria toxoid) 1 2018 [id number] 09 [facility] (MBL) complet ed tetanus and diphtheri a toxoids, adsorbed, preservat dave free, for adult use (2 Lf of tetanus toxoid and 2 Lf of diphtheri a toxoid) [facility] influenza, injectable, quadrivalent- pf 2017 [id number] 150 Seqirus complet ed influenza , injectabl e, quadrival ent-pf 08/20/18 Given Ambulat ory Pharmac y Influenza, injectable, quadrivalent, preservative free 11 2017 [id number] 150 Seqirus (SEQ) comple t ed Influenza , injectabl e, quadrival ent, preservat dave free DoD influenza, seasonal, injectable-pf 2016 [id number] 140 GlaxoSmithKli ne complet ed influenza , seasonal, injectabl e-pf 08/27/17 Given Ambulat ory Pharmac y Influenza, seasonal, injectable, preservative free 10 2016 [id number] 140 SmithKline (SKB) complet ed Influenza , seasonal, injectabl e, preservat dave free DoD influenza, injectable, quadrivalent 2015 [id number] 158 [employer] comple t ed influenza , injectabl e, quadrival ent 08/22/16 Given Ambulat ory Pharmac y influenza, injectable, quadrivalent, contains preservative 9 2015 [id number] 158 (IDB) complet ed influenza , injectabl e, quadrival ent, contains preservat dave DoD influenza virus vaccine, unspecified 2014 [id number] 88 complet ed influenza virus vaccine, unspecifi ed 08/07/15 Given Ambulat ory Pharmac y influenza virus vaccine, unspecified formulation 1 2014 88 Transcribed (TRS) complet ed influenza virus vaccine, unspecifi ed formulati on DoD hepatitis B adult vaccine 2014 [id number] 43 GlaxoSmithKli ne complet ed hepatitis B adult vaccine 07/19/15 Given Ambulat ory Pharmac y hepatitis B vaccine, adult dosage 3 2014 [id number] 43 SmithKline (SKB) complet ed hepatitis B vaccine, adult dosage DoD influenza, seasonal, injectable-pf 2013 [id number] 140 Novartis Pharmaceutica ls complet ed influenza , seasonal, injectabl e-pf 09/07/14 Given Ambulat ory Pharmac y Influenza, seasonal, injectable, preservative free 1 2013 [id number] 140 Novartis Pharmaceutica l Dilan. (NOV) complet ed Influenza , seasonal, injectabl e, preservat dave free DoD hepatitis B adult vaccine 2013 [id number] 43 GlaxoSmithKli ne complet ed hepatitis B adult vaccine 04/13/14 Given Ambulat ory Pharmac y hepatitis B vaccine, adult dosage 2 2013 [id number] 43 SmithKline (SKB) complet ed hepatitis B vaccine, adult dosage DoD hepatitis B adult vaccine 2013 [id number] 43 GlaxoSmithKli ne complet ed hepatitis B adult vaccine 03/09/14 Given Ambulat ory Pharmac y hepatitis B vaccine, adult dosage 1 2013 [id number] 43 [facility] (SKB) complet ed hepatitis B vaccine, adult dosage DoD influenza, seasonal, injectable-pf 2012 [id number] 140 Novartis Pharmaceutica ls complet ed influenza , seasonal, injectabl e-pf 09/23/13 Given Ambulat ory Pharmac y Influenza, seasonal, injectable, preservative free 1 2012 [id number] 140 Novartis Pharmaceutica l Dilan. (NOV) complet ed Influenza , seasonal, injectabl e, preservat dave free DoD influenza, seasonal, injectable-pf 2011 [id number] 140 CSL Behring complet ed influenza , seasonal, injectabl e-pf 08/20/12 Given Ambulat ory Pharmac y Influenza, seasonal, injectable, preservative free 5 2011 [id number] 140 CSL [employer] (CSL) complet ed Influenza , seasonal, injectabl e, preservat dave free DoD influenza virus vaccine, live 2010 [id number] 111 Medimmune Inc comple t ed influenza virus vaccine, live 08/08/11 Given Ambulat ory Pharmac y influenza virus vaccine, live, attenuated, for intranasal use 4 2010 [id number] 111 [employer] (MED) complet ed influenza virus vaccine, live, attenuate d, for intranasa l use [facility] influenza virus vaccine,split 2009 [id number] 15 CSL Behring complet ed influenza virus vaccine,s plit 09/13/10 Given Ambulat ory Pharmac y influenza virus vaccine, split virus (incl. purified surface antigen)-reti red CODE 1 2009 [id number] 15 CSL [employer] Inc[employer] (CSL) complet ed influenza virus vaccine, split virus (incl. purified surface antigen)- retired CODE DoD hepatitis A adult vaccine 2009 [id number] 52 GlaxoSmithKli ne complet ed hepatitis A adult vaccine 07/18/10 Given Ambulat ory Pharmac y hepatitis A vaccine, adult dosage 2 2009 [id number] 52 SmithKline (SKB) complet ed hepatitis A vaccine, adult dosage DoD Novel influenza-H1N 1-09, injectable 2009 [id number] 1 127 Novartis Pharmaceutica ls complet ed Novel influenza -F6C9-12, injectabl e 02/18/10 Given Ambulat ory Pharmac y Novel influenza-H1N 1-09, injectable 1 2009 [id number] 1 127 Novartis Pharmaceutica l Dilan. (NOV) complet ed Novel influenza -[id number], injectabl e DoD influenza virus vaccine, live 2008 [id number] 111 [employer] Inc comple t ed influenza virus vaccine, live 08/09/09 Given Ambulat ory Pharmac y influenza virus vaccine, live, attenuated, for intranasal use 1 2008 [id number] 111 Free [employer] Clear[employer] Inc. (MED) complet ed influenza virus vaccine, live, attenuate d, for intranasa l use DoD hepatitis A adult vaccine 2008 [id number] [id number] 52 GlaxoSmithKli ne complet ed hepatitis A adult vaccine 03/09/09 Given Ambulat ory Pharmac y influenza virus vaccine,split 2008 [id number] 15 sanofi pasteur complet ed influenza virus vaccine,s plit 03/09/09 Given Ambulat ory Pharmac y tuberculin purified protein derivative 2008 [id number] 96 CSL Behring complet ed tuberculi n purified protein derivativ e 03/09/09 Given Ambulat ory Pharmac y tetanus, diphtheria, acellular pertu is 2008 [id number] 115 sanofi pasteur complet ed tetanus, diphtheri a, acellular pertussis 03/09/09 Given Ambulat ory Pharmac y influenza virus vaccine, split virus (incl. purified surface antigen)-reti red CODE 1 2008 [id number] 15 Sanofi Pasteur (PMC) complet ed influenza virus vaccine, split virus (incl. purified surface antigen)- retired CODE DoD hepatitis A vaccine, adult dosage 1 2008 [id number] 52 SmithKline (SKB) complet ed hepatitis A vaccine, adult dosage DoD tetanus toxoid, reduced diphtheria toxoid, and acellular pertu is vaccine, adsorbed 1 2008 [id number] 115 Sanofi Pasteur (PMC) complet ed tetanus toxoid, reduced diphtheri a toxoid, and acellular pertussis vaccine, adsorbed DoD INFLUENZA (HISTORICAL) 2005 NONE 88 complet ed L Deltoid, LOT# [id number] A exp. [facility] TD(ADULT) UNSPECIFIED FORMULATION 2000 139 complet ed [facility] typhoid, parenteral, AKD 1989 53 complet ed typhoid, parentera l, AKD 01/05/90 Given Ambulat ory Pharmac y typhoid vaccine, parenteral, acetone-kille d, dried ([place]S. ) 1 1989 53 () complet ed typhoid vaccine, parentera l, acetone-k illed, dried ([place].S. ) DoD poliovirus vaccine, live, oral 1989 02 complet ed polioviru s vaccine, live, oral 11/07/89 Given Ambulat ory Pharmac y trivalent poliovirus vaccine, live, oral 1 1989 02 () complet ed trivalent polioviru s vaccine, live, oral [facility] tetanus-dipht h toxoids (Td) adult/adol 1988 09 complet ed tetanus-d iphth toxoids (Td) adult/ado l 08/07/89 Given Ambulat ory Pharmac y tetanus and diphtheria toxoids, adsorbed, preservative free, for adult use (2 Lf of tetanus toxoid and 2 Lf of diphtheria toxoid) 1 1988 09 () complet ed tetanus and diphtheri a toxoids, adsorbed, preservat dave free, for adult use (2 Lf of tetanus toxoid and 2 Lf of diphtheri a toxoid) DoD measles/mumps /rubella virus vaccine 1988 03 complet ed measles/m umps/rube lla virus vaccine 07/06/89 Given Ambulat ory Pharmac y measles, mumps and rubella virus vaccine 1 1988 03 Transcribed (TRS) complet ed measles, mumps and rubella virus vaccine DoD Results Combined list of recent chemistry, hematology and other laboratory results from Department of Defense and Veterans Affairs, ranging from 15 months to all on record, depending upon the facility. Order Name Results Value Reference Range Date Interpretation Specimen Comments Source PANEL 1 CREATININE [MASS/VOLU ME] IN SERUM OR PLASMA 0.72 mg/dL 0.57 - 1.11 01/18 Specimen Type: PLASMA Comment: Estimated Glomerular Filtration Rate (eGFR) calculated using the 2020 Chronic Kidney Disease-Epi demiology (CKD-EPI) Collaborati on creatinine equation; units of measure are mL/min/1.73 m2. Results are only valid for adults (>=18 years) whose serum creatinine is in a steady state. eGFR calculation s are not valid for patients with acute kidney injury and for patients on dialysis. Creatinine- based estimates of kidney function may also be inaccurate in patients with reduced creatinine generation due to decreased muscle mass (e.g., malnutritio n, severe hypoalbumin emia, sarcopenia, chronic neuromuscul ar disease, amputations , severe heart failure or liver disease) and in patients with increased creatinine generation due to increased muscle mass (e.g., muscle builders, anabolic steroids) or increased dietary intake. As drug clearance is proportiona l to total GFR and not GFR indexed to body surface area (BSA), in individuals with a BSA substantial ly different than 1.73 m2, drug dosing should be based on the reported eGFR value de-indexed from BSA by multiplying by the individual' s BSA and dividing by 1.73. CKD is diagnosed based on abnormaliti es of kidney structure or function, present for >3 months, with implication s for health and disease. CKD is classified and staged based on cause, eGFR and albuminuria (quantified as urine albumin to creatinine ratio). An eGFR >60 mL/min/1.73 m2 in the absence of increased urine albumin excretion or structural abnormaliti es does not represent CKD. eGFR CKD Interpretat ion (mL/min/1.7 3 m2) stage >=90 G1 Normal 60-89 G2 Mild decrease 45-59 G3A Mild to moderate decrease 30-44 G3B Moderate to severe decrease 15-29 G4 Severe decrease <15 G5 Kidney failure Vitamin B12 test may not yield results when protein level of sample is too elevated. Ordering Provider: JAHAIRA NIETO Report Released Date/Time: Jan 19, 2024 10:26 AM Reporting Lab: [facility] [address] [id number] Performing Lab: [facility] [address] [phone] [facility] PANEL 1 UREA NITROGEN [MASS/VOLU ME] IN SERUM OR PLASMA 10 mg/dL 01/18 Specimen Type: PLASMA Comment: Estimated Glomerular Filtration Rate (eGFR) calculated using the 2020 Chronic Kidney Disease-Epi demiology (CKD-EPI) Collaborati on creatinine equation; units of measure are mL/min/1.73 m2. Results are only valid for adults (>=18 years) whose serum creatinine is in a steady state. eGFR calculation s are not valid for patients with acute kidney injury and for patients on dialysis. Creatinine- based estimates of kidney function may also be inaccurate in patients with reduced creatinine generation due to decreased muscle mass (e.g., malnutritio n, severe hypoalbumin emia, sarcopenia, chronic neuromuscul ar disease, amputations , severe heart failure or liver disease) and in patients with increased creatinine generation due to increased muscle mass (e.g., muscle builders, anabolic steroids) or increased dietary intake. As drug clearance is proportiona l to total GFR and not GFR indexed to body surface area (BSA), in individuals with a BSA substantial ly different than 1.73 m2, drug dosing should be based on the reported eGFR value de-indexed from BSA by multiplying by the individual' s BSA and dividing by 1.73. CKD is diagnosed based on abnormaliti es of kidney structure or function, present for >3 months, with implication s for health and disease. CKD is classified and staged based on cause, eGFR and albuminuria (quantified as urine albumin to creatinine ratio). An eGFR >60 mL/min/1.73 m2 in the absence of increased urine albumin excretion or structural abnormaliti es does not represent CKD. eGFR CKD Interpretat ion (mL/min/1.7 3 m2) stage >=90 G1 Normal 60-89 G2 Mild decrease 45-59 G3A Mild to moderate decrease 30-44 G3B Moderate to severe decrease 15-29 G4 Severe decrease <15 G5 Kidney failure Vitamin B12 test may not yield results when protein level of sample is too elevated. Ordering Provider: JAHAIRA NIETO Report Released Date/Time: Jan 19, 2024 10:26 AM Reporting Lab: [facility] [address] [facility] [phone] Performing Lab: [facility] [address] [facility] [phone] [facility] PANEL 1 GLUCOSE [MASS/VOLU ME] IN SERUM OR PLASMA 99 mg/dL 74 - 100 01/18 Specimen Type: PLASMA Comment: Estimated Glomerular Filtration Rate (eGFR) calculated using the 2020 Chronic Kidney Disease-Epi demiology (CKD-EPI) Collaborati on creatinine equation; units of measure are mL/min/1.73 m2. Results are only valid for adults (>=18 years) whose serum creatinine is in a steady state. eGFR calculation s are not valid for patients with acute kidney injury and for patients on dialysis. Creatinine- based estimates of kidney function may also be inaccurate in patients with reduced creatinine generation due to decreased muscle mass (e.g., malnutritio n, severe hypoalbumin emia, sarcopenia, chronic neuromuscul ar disease, amputations , severe heart failure or liver disease) and in patients with increased creatinine generation due to increased muscle mass (e.g., muscle builders, anabolic steroids) or increased dietary intake. As drug clearance is proportiona l to total GFR and not GFR indexed to body surface area (BSA), in individuals with a BSA substantial ly different than 1.73 m2, drug dosing should be based on the reported eGFR value de-indexed from BSA by multiplying by the individual' s BSA and dividing by 1.73. CKD is diagnosed based on abnormaliti es of kidney structure or function, present for >3 months, with implication s for health and disease. CKD is classified and staged based on cause, eGFR and albuminuria (quantified as urine albumin to creatinine ratio). An eGFR >60 mL/min/1.73 m2 in the absence of increased urine albumin excretion or structural abnormaliti es does not represent CKD. eGFR CKD Interpretat ion (mL/min/1.7 3 m2) stage >=90 G1 Normal 60-89 G2 Mild decrease 45-59 G3A Mild to moderate decrease 30-44 G3B Moderate to severe decrease 15-29 G4 Severe decrease <15 G5 Kidney failure Vitamin B12 test may not yield results when protein level of sample is too elevated. Ordering Provider: JAHAIRA NIETO Report Released Date/Time: Jan 19, 2024 10:26 AM Reporting Lab: [address] [id number] Performing Lab: [address] [address] [facility] PANEL 1 SODIUM [MOLES/VOL UME] IN SERUM OR PLASMA 138 mmol/L 136 - 145 01/18 Specimen Type: PLASMA Comment: Estimated Glomerular Filtration Rate (eGFR) calculated using the 2020 Chronic Kidney Disease-Epi demiology (CKD-EPI) Collaborati on creatinine equation; units of measure are mL/min/1.73 m2. Results are only valid for adults (>=18 years) whose serum creatinine is in a steady state. eGFR calculation s are not valid for patients with acute kidney injury and for patients on dialysis. Creatinine- based estimates of kidney function may also be inaccurate in patients with reduced creatinine generation due to decreased muscle mass (e.g., malnutritio n, severe hypoalbumin emia, sarcopenia, chronic neuromuscul ar disease, amputations , severe heart failure or liver disease) and in patients with increased creatinine generation due to increased muscle mass (e.g., muscle builders, anabolic steroids) or increased dietary intake. As drug clearance is proportiona l to total GFR and not GFR indexed to body surface area (BSA), in individuals with a BSA substantial ly different than 1.73 m2, drug dosing should be based on the reported eGFR value de-indexed from BSA by multiplying by the individual' s BSA and dividing by 1.73. CKD is diagnosed based on abnormaliti es of kidney structure or function, present for >3 months, with implication s for health and disease. CKD is classified and staged based on cause, eGFR and albuminuria (quantified as urine albumin to creatinine ratio). An eGFR >60 mL/min/1.73 m2 in the absence of increased urine albumin excretion or structural abnormaliti es does not represent CKD. eGFR CKD Interpretat ion (mL/min/1.7 3 m2) stage >=90 G1 Normal 60-89 G2 Mild decrease 45-59 G3A Mild to moderate decrease 30-44 G3B Moderate to severe decrease 15-29 G4 Severe decrease <15 G5 Kidney failure Vitamin B12 test may not yield results when protein level of sample is too elevated. Ordering Provider: JAHAIRA NIETO Report Released Date/Time: Jan 19, 2024 10:26 AM Reporting Lab: [facility] [address] [place] [phone] Performing Lab: [facility] [address] [address] [facility] PANEL 1 POTASSIUM [MOLES/VOL UME] IN SERUM OR PLASMA 4.2 mmol/L 3.5 - 5.1 01/18 Specimen Type: PLASMA Comment: Estimated Glomerular Filtration Rate (eGFR) calculated using the 2020 Chronic Kidney Disease-Epi demiology (CKD-EPI) Collaborati on creatinine equation; units of measure are mL/min/1.73 m2. Results are only valid for adults (>=18 years) whose serum creatinine is in a steady state. eGFR calculation s are not valid for patients with acute kidney injury and for patients on dialysis. Creatinine- based estimates of kidney function may also be inaccurate in patients with reduced creatinine generation due to decreased muscle mass (e.g., malnutritio n, severe hypoalbumin emia, sarcopenia, chronic neuromuscul ar disease, amputations , severe heart failure or liver disease) and in patients with increased creatinine generation due to increased muscle mass (e.g., muscle builders, anabolic steroids) or increased dietary intake. As drug clearance is proportiona l to total GFR and not GFR indexed to body surface area (BSA), in individuals with a BSA substantial ly different than 1.73 m2, drug dosing should be based on the reported eGFR value de-indexed from BSA by multiplying by the individual' s BSA and dividing by 1.73. CKD is diagnosed based on abnormaliti es of kidney structure or function, present for >3 months, with implication s for health and disease. CKD is classified and staged based on cause, eGFR and albuminuria (quantified as urine albumin to creatinine ratio). An eGFR >60 mL/min/1.73 m2 in the absence of increased urine albumin excretion or structural abnormaliti es does not represent CKD. eGFR CKD Interpretat ion (mL/min/1.7 3 m2) stage >=90 G1 Normal 60-89 G2 Mild decrease 45-59 G3A Mild to moderate decrease 30-44 G3B Moderate to severe decrease 15-29 G4 Severe decrease <15 G5 Kidney failure Vitamin B12 test may not yield results when protein level of sample is too elevated. Ordering Provider: JAHAIRA NIETO Report Released Date/Time: Jan 19, 2024 10:26 AM Reporting Lab: [facility] [address] [address] Performing Lab: [facility] [address] [address] [facility] PANEL 1 CHLORIDE [MOLES/VOL UME] IN SERUM OR PLASMA 103 mmol/L 98 - 107 01/18 Specimen Type: PLASMA Comment: Estimated Glomerular Filtration Rate (eGFR) calculated using the 2020 Chronic Kidney Disease-Epi demiology (CKD-EPI) Collaborati on creatinine equation; units of measure are mL/min/1.73 m2. Results are only valid for adults (>=18 years) whose serum creatinine is in a steady state. eGFR calculation s are not valid for patients with acute kidney injury and for patients on dialysis. Creatinine- based estimates of kidney function may also be inaccurate in patients with reduced creatinine generation due to decreased muscle mass (e.g., malnutritio n, severe hypoalbumin emia, sarcopenia, chronic neuromuscul ar disease, amputations , severe heart failure or liver disease) and in patients with increased creatinine generation due to increased muscle mass (e.g., muscle builders, anabolic steroids) or increased dietary intake. As drug clearance is proportiona l to total GFR and not GFR indexed to body surface area (BSA), in individuals with a BSA substantial ly different than 1.73 m2, drug dosing should be based on the reported eGFR value de-indexed from BSA by multiplying by the individual' s BSA and dividing by 1.73. CKD is diagnosed based on abnormaliti es of kidney structure or function, present for >3 months, with implication s for health and disease. CKD is classified and staged based on cause, eGFR and albuminuria (quantified as urine albumin to creatinine ratio). An eGFR >60 mL/min/1.73 m2 in the absence of increased urine albumin excretion or structural abnormaliti es does not represent CKD. eGFR CKD Interpretat ion (mL/min/1.7 3 m2) stage >=90 G1 Normal 60-89 G2 Mild decrease 45-59 G3A Mild to moderate decrease 30-44 G3B Moderate to severe decrease 15-29 G4 Severe decrease <15 G5 Kidney failure Vitamin B12 test may not yield results when protein level of sample is too elevated. Ordering Provider: JAHAIRA NIETO Report Released Date/Time: Jan 19, 2024 10:26 AM Reporting Lab: [facility] [address] [address] Performing Lab: [facility] [address] [address] [facility] PANEL 1 CARBON DIOXIDE, TOTAL [MOLES/VOL UME] IN SERUM OR PLASMA 27 mmol/L 22 - 01/18 Specimen Type: PLASMA Comment: Estimated Glomerular Filtration Rate (eGFR) calculated using the 2020 Chronic Kidney Disease-Epi demiology (CKD-EPI) Collaborati on creatinine equation; units of measure are mL/min/1.73 m2. Results are only valid for adults (>=18 years) whose serum creatinine is in a steady state. eGFR calculation s are not valid for patients with acute kidney injury and for patients on dialysis. Creatinine- based estimates of kidney function may also be inaccurate in patients with reduced creatinine generation due to decreased muscle mass (e.g., malnutritio n, severe hypoalbumin emia, sarcopenia, chronic neuromuscul ar disease, amputations , severe heart failure or liver disease) and in patients with increased creatinine generation due to increased muscle mass (e.g., muscle builders, anabolic steroids) or increased dietary intake. As drug clearance is proportiona l to total GFR and not GFR indexed to body surface area (BSA), in individuals with a BSA substantial ly different than 1.73 m2, drug dosing should be based on the reported eGFR value de-indexed from BSA by multiplying by the individual' s BSA and dividing by 1.73. CKD is diagnosed based on abnormaliti es of kidney structure or function, present for >3 months, with implication s for health and disease. CKD is classified and staged based on cause, eGFR and albuminuria (quantified as urine albumin to creatinine ratio). An eGFR >60 mL/min/1.73 m2 in the absence of increased urine albumin excretion or structural abnormaliti es does not represent CKD. eGFR CKD Interpretat ion (mL/min/1.7 3 m2) stage >=90 G1 Normal 60-89 G2 Mild decrease 45-59 G3A Mild to moderate decrease 30-44 G3B Moderate to severe decrease 15-29 G4 Severe decrease <15 G5 Kidney failure Vitamin B12 test may not yield results when protein level of sample is too elevated. Ordering Provider: AJHAIRA NIETO Report Released Date/Time: Jan 19, 2024 10:26 AM Reporting Lab: [facility] [address] [address] Performing Lab: [facility] [address] [address] [facility] PANEL 1 CALCIUM [MASS/VOLU ME] IN SERUM OR PLASMA 9.5 mg/dL 8.4 - 10.2 01/18 Specimen Type: PLASMA Comment: Estimated Glomerular Filtration Rate (eGFR) calculated using the 2020 Chronic Kidney Disease-Epi demiology (CKD-EPI) Collaborati on creatinine equation; units of measure are mL/min/1.73 m2. Results are only valid for adults (>=18 years) whose serum creatinine is in a steady state. eGFR calculation s are not valid for patients with acute kidney injury and for patients on dialysis. Creatinine- based estimates of kidney function may also be inaccurate in patients with reduced creatinine generation due to decreased muscle mass (e.g., malnutritio n, severe hypoalbumin emia, sarcopenia, chronic neuromuscul ar disease, amputations , severe heart failure or liver disease) and in patients with increased creatinine generation due to increased muscle mass (e.g., muscle builders, anabolic steroids) or increased dietary intake. As drug clearance is proportiona l to total GFR and not GFR indexed to body surface area (BSA), in individuals with a BSA substantial ly different than 1.73 m2, drug dosing should be based on the reported eGFR value de-indexed from BSA by multiplying by the individual' s BSA and dividing by 1.73. CKD is diagnosed based on abnormaliti es of kidney structure or function, present for >3 months, with implication s for health and disease. CKD is classified and staged based on cause, eGFR and albuminuria (quantified as urine albumin to creatinine ratio). An eGFR >60 mL/min/1.73 m2 in the absence of increased urine albumin excretion or structural abnormaliti es does not represent CKD. eGFR CKD Interpretat ion (mL/min/1.7 3 m2) stage >=90 G1 Normal 60-89 G2 Mild decrease 45-59 G3A Mild to moderate decrease 30-44 G3B Moderate to severe decrease 15-29 G4 Severe decrease <15 G5 Kidney failure Vitamin B12 test may not yield results when protein level of sample is too elevated. Ordering Provider: JAHAIRA NIETO Report Released Date/Time: Jan 19, 2024 10:26 AM Reporting Lab: [facility] [address] [address] Performing Lab: [facility] [address] [address] [facility] PANEL 1 ANION GAP 3 IN SERUM OR PLASMA 8 meq/L 3 - 19 01/18 Specimen Type: PLASMA Comment: Estimated Glomerular Filtration Rate (eGFR) calculated using the 2020 Chronic Kidney Disease-Epi demiology (CKD-EPI) Collaborati on creatinine equation; units of measure are mL/min/1.73 m2. Results are only valid for adults (>=18 years) whose serum creatinine is in a steady state. eGFR calculation s are not valid for patients with acute kidney injury and for patients on dialysis. Creatinine- based estimates of kidney function may also be inaccurate in patients with reduced creatinine generation due to decreased muscle mass (e.g., malnutritio n, severe hypoalbumin emia, sarcopenia, chronic neuromuscul ar disease, amputations , severe heart failure or liver disease) and in patients with increased creatinine generation due to increased muscle mass (e.g., muscle builders, anabolic steroids) or increased dietary intake. As drug clearance is proportiona l to total GFR and not GFR indexed to body surface area (BSA), in individuals with a BSA substantial ly different than 1.73 m2, drug dosing should be based on the reported eGFR value de-indexed from BSA by multiplying by the individual' s BSA and dividing by 1.73. CKD is diagnosed based on abnormaliti es of kidney structure or function, present for >3 months, with implication s for health and disease. CKD is classified and staged based on cause, eGFR and albuminuria (quantified as urine albumin to creatinine ratio). An eGFR >60 mL/min/1.73 m2 in the absence of increased urine albumin excretion or structural abnormaliti es does not represent CKD. eGFR CKD Interpretat ion (mL/min/1.7 3 m2) stage >=90 G1 Normal 60-89 G2 Mild decrease 45-59 G3A Mild to moderate decrease 30-44 G3B Moderate to severe decrease 15-29 G4 Severe decrease <15 G5 Kidney failure Vitamin B12 test may not yield results when protein level of sample is too elevated. Ordering Provider: JAHAIRA NIETO Report Released Date/Time: Jan 19, 2024 10:26 AM Reporting Lab: [facility] [address] [phone] Performing Lab: [facility] [address] [address] [facility] PANEL 1 GLOMERULAR FILTRATION RATE/1.73 SQ M.PREDICTE D [VOLUME RATE/AREA] IN SERUM, PLASMA OR BLOOD BY CREATININE -BASED FORMULA (CKD-EPI 2020) >90 01/18 Specimen Type: PLASMA Comment: Estimated Glomerular Filtration Rate (eGFR) calculated using the 2020 Chronic Kidney Disease-Epi demiology (CKD-EPI) Collaborati on creatinine equation; units of measure are mL/min/1.73 m2. Results are only valid for adults (>=18 years) whose serum creatinine is in a steady state. eGFR calculation s are not valid for patients with acute kidney injury and for patients on dialysis. Creatinine- based estimates of kidney function may also be inaccurate in patients with reduced creatinine generation due to decreased muscle mass (e.g., malnutritio n, severe hypoalbumin emia, sarcopenia, chronic neuromuscul ar disease, amputations , severe heart failure or liver disease) and in patients with increased creatinine generation due to increased muscle mass (e.g., muscle builders, anabolic steroids) or increased dietary intake. As drug clearance is proportiona l to total GFR and not GFR indexed to body surface area (BSA), in individuals with a BSA substantial ly different than 1.73 m2, drug dosing should be based on the reported eGFR value de-indexed from BSA by multiplying by the individual' s BSA and dividing by 1.73. CKD is diagnosed based on abnormaliti es of kidney structure or function, present for >3 months, with implication s for health and disease. CKD is classified and staged based on cause, eGFR and albuminuria (quantified as urine albumin to creatinine ratio). An eGFR >60 mL/min/1.73 m2 in the absence of increased urine albumin excretion or structural abnormaliti es does not represent CKD. eGFR CKD Interpretat ion (mL/min/1.7 3 m2) stage >=90 G1 Normal 60-89 G2 Mild decrease 45-59 G3A Mild to moderate decrease 30-44 G3B Moderate to severe decrease 15-29 G4 Severe decrease <15 G5 Kidney failure Vitamin B12 test may not yield results when protein level of sample is too elevated. Ordering Provider: JAHAIRA NIETO Report Released Date/Time: Jan 19, 2024 10:26 AM Reporting Lab: [facility] [address] [facility] [address] Performing Lab: [facility] [address] [facility] [address] [facility] PANEL 2 PROTEIN [MASS/VOLU ME] IN SERUM OR PLASMA 7.7 g/dL 6.4 - 8.3 01/18 Specimen Type: PLASMA Comment: Estimated Glomerular Filtration Rate (eGFR) calculated using the 2020 Chronic Kidney Disease-Epi demiology (CKD-EPI) Collaborati on creatinine equation; units of measure are mL/min/1.73 m2. Results are only valid for adults (>=18 years) whose serum creatinine is in a steady state. eGFR calculation s are not valid for patients with acute kidney injury and for patients on dialysis. Creatinine- based estimates of kidney function may also be inaccurate in patients with reduced creatinine generation due to decreased muscle mass (e.g., malnutritio n, severe hypoalbumin emia, sarcopenia, chronic neuromuscul ar disease, amputations , severe heart failure or liver disease) and in patients with increased creatinine generation due to increased muscle mass (e.g., muscle builders, anabolic steroids) or increased dietary intake. As drug clearance is proportiona l to total GFR and not GFR indexed to body surface area (BSA), in individuals with a BSA substantial ly different than 1.73 m2, drug dosing should be based on the reported eGFR value de-indexed from BSA by multiplying by the individual' s BSA and dividing by 1.73. CKD is diagnosed based on abnormaliti es of kidney structure or function, present for >3 months, with implication s for health and disease. CKD is classified and staged based on cause, eGFR and albuminuria (quantified as urine albumin to creatinine ratio). An eGFR >60 mL/min/1.73 m2 in the absence of increased urine albumin excretion or structural abnormaliti es does not represent CKD. eGFR CKD Interpretat ion (mL/min/1.7 3 m2) stage >=90 G1 Normal 60-89 G2 Mild decrease 45-59 G3A Mild to moderate decrease 30-44 G3B Moderate to severe decrease 15-29 G4 Severe decrease <15 G5 Kidney failure Vitamin B12 test may not yield results when protein level of sample is too elevated. Ordering Provider: JAHAIRA NIETO Report Released Date/Time: Jan 19, 2024 10:26 AM Reporting Lab: [facility] [address] [address] Performing Lab: [facility] [address] [address] [facility] PANEL 2 ALBUMIN [MASS/VOLU ME] IN SERUM OR PLASMA 4.5 g/dL 3.5 - 5.2 01/18 Specimen Type: PLASMA Comment: Estimated Glomerular Filtration Rate (eGFR) calculated using the 2020 Chronic Kidney Disease-Epi demiology (CKD-EPI) Collaborati on creatinine equation; units of measure are mL/min/1.73 m2. Results are only valid for adults (>=18 years) whose serum creatinine is in a steady state. eGFR calculation s are not valid for patients with acute kidney injury and for patients on dialysis. Creatinine- based estimates of kidney function may also be inaccurate in patients with reduced creatinine generation due to decreased muscle mass (e.g., malnutritio n, severe hypoalbumin emia, sarcopenia, chronic neuromuscul ar disease, amputations , severe heart failure or liver disease) and in patients with increased creatinine generation due to increased muscle mass (e.g., muscle builders, anabolic steroids) or increased dietary intake. As drug clearance is proportiona l to total GFR and not GFR indexed to body surface area (BSA), in individuals with a BSA substantial ly different than 1.73 m2, drug dosing should be based on the reported eGFR value de-indexed from BSA by multiplying by the individual' s BSA and dividing by 1.73. CKD is diagnosed based on abnormaliti es of kidney structure or function, present for >3 months, with implication s for health and disease. CKD is classified and staged based on cause, eGFR and albuminuria (quantified as urine albumin to creatinine ratio). An eGFR >60 mL/min/1.73 m2 in the absence of increased urine albumin excretion or structural abnormaliti es does not represent CKD. eGFR CKD Interpretat ion (mL/min/1.7 3 m2) stage >=90 G1 Normal 60-89 G2 Mild decrease 45-59 G3A Mild to moderate decrease 30-44 G3B Moderate to severe decrease 15-29 G4 Severe decrease <15 G5 Kidney failure Vitamin B12 test may not yield results when protein level of sample is too elevated. Ordering Provider: JAHAIRA NIETO Report Released Date/Time: Jan 19, 2024 10:26 AM Reporting Lab: [facility] [address] [address] Performing Lab: [facility] [address] [facility] PANEL 2 BILIRUBIN. TOTAL [MASS/VOLU ME] IN SERUM OR PLASMA 0.4 mg/dL 0.2 - 1.2 01/18 Specimen Type: PLASMA Comment: Estimated Glomerular Filtration Rate (eGFR) calculated using the 2020 Chronic Kidney Disease-Epi demiology (CKD-EPI) Collaborati on creatinine equation; units of measure are mL/min/1.73 m2. Results are only valid for adults (>=18 years) whose serum creatinine is in a steady state. eGFR calculation s are not valid for patients with acute kidney injury and for patients on dialysis. Creatinine- based estimates of kidney function may also be inaccurate in patients with reduced creatinine generation due to decreased muscle mass (e.g., malnutritio n, severe hypoalbumin emia, sarcopenia, chronic neuromuscul ar disease, amputations , severe heart failure or liver disease) and in patients with increased creatinine generation due to increased muscle mass (e.g., muscle builders, anabolic steroids) or increased dietary intake. As drug clearance is proportiona l to total GFR and not GFR indexed to body surface area (BSA), in individuals with a BSA substantial ly different than 1.73 m2, drug dosing should be based on the reported eGFR value de-indexed from BSA by multiplying by the individual' s BSA and dividing by 1.73. CKD is diagnosed based on abnormaliti es of kidney structure or function, present for >3 months, with implication s for health and disease. CKD is classified and staged based on cause, eGFR and albuminuria (quantified as urine albumin to creatinine ratio). An eGFR >60 mL/min/1.73 m2 in the absence of increased urine albumin excretion or structural abnormaliti es does not represent CKD. eGFR CKD Interpretat ion (mL/min/1.7 3 m2) stage >=90 G1 Normal 60-89 G2 Mild decrease 45-59 G3A Mild to moderate decrease 30-44 G3B Moderate to severe decrease 15-29 G4 Severe decrease <15 G5 Kidney failure Vitamin B12 test may not yield results when protein level of sample is too elevated. Ordering Provider: JAHAIRA NIETO Report Released Date/Time: Jan 19, 2024 10:26 AM Reporting Lab: [facility] [address] [address] Performing Lab: [facility] [address] [facility] PANEL 2 ASPARTATE AMINOTRANS FERASE [ENZYMATIC ACTIVITY/V OLUME] IN SERUM OR PLASMA 19 U/L 5 - 34 01/18 Specimen Type: PLASMA Comment: Estimated Glomerular Filtration Rate (eGFR) calculated using the 2020 Chronic Kidney Disease-Epi demiology (CKD-EPI) Collaborati on creatinine equation; units of measure are mL/min/1.73 m2. Results are only valid for adults (>=18 years) whose serum creatinine is in a steady state. eGFR calculation s are not valid for patients with acute kidney injury and for patients on dialysis. Creatinine- based estimates of kidney function may also be inaccurate in patients with reduced creatinine generation due to decreased muscle mass (e.g., malnutritio n, severe hypoalbumin emia, sarcopenia, chronic neuromuscul ar disease, amputations , severe heart failure or liver disease) and in patients with increased creatinine generation due to increased muscle mass (e.g., muscle builders, anabolic steroids) or increased dietary intake. As drug clearance is proportiona l to total GFR and not GFR indexed to body surface area (BSA), in individuals with a BSA substantial ly different than 1.73 m2, drug dosing should be based on the reported eGFR value de-indexed from BSA by multiplying by the individual' s BSA and dividing by 1.73. CKD is diagnosed based on abnormaliti es of kidney structure or function, present for >3 months, with implication s for health and disease. CKD is classified and staged based on cause, eGFR and albuminuria (quantified as urine albumin to creatinine ratio). An eGFR >60 mL/min/1.73 m2 in the absence of increased urine albumin excretion or structural abnormaliti es does not represent CKD. eGFR CKD Interpretat ion (mL/min/1.7 3 m2) stage >=90 G1 Normal 60-89 G2 Mild decrease 45-59 G3A Mild to moderate decrease 30-44 G3B Moderate to severe decrease 15-29 G4 Severe decrease <15 G5 Kidney failure Vitamin B12 test may not yield results when protein level of sample is too elevated. Ordering Provider: JAHAIRA NIETO Report Released Date/Time: Jan 19, 2024 10:26 AM Reporting Lab: [facility] [address] [address] Performing Lab: [facility] [address] [address] [facility] PANEL 2 ALANINE AMINOTRANS FERASE [ENZYMATIC ACTIVITY/V OLUME] IN SERUM OR PLASMA 17 U/L 0 - 55 01/18 Specimen Type: PLASMA Comment: Estimated Glomerular Filtration Rate (eGFR) calculated using the 2020 Chronic Kidney Disease-Epi demiology (CKD-EPI) Collaborati on creatinine equation; units of measure are mL/min/1.73 m2. Results are only valid for adults (>=18 years) whose serum creatinine is in a steady state. eGFR calculation s are not valid for patients with acute kidney injury and for patients on dialysis. Creatinine- based estimates of kidney function may also be inaccurate in patients with reduced creatinine generation due to decreased muscle mass (e.g., malnutritio n, severe hypoalbumin emia, sarcopenia, chronic neuromuscul ar disease, amputations , severe heart failure or liver disease) and in patients with increased creatinine generation due to increased muscle mass (e.g., muscle builders, anabolic steroids) or increased dietary intake. As drug clearance is proportiona l to total GFR and not GFR indexed to body surface area (BSA), in individuals with a BSA substantial ly different than 1.73 m2, drug dosing should be based on the reported eGFR value de-indexed from BSA by multiplying by the individual' s BSA and dividing by 1.73. CKD is diagnosed based on abnormaliti es of kidney structure or function, present for >3 months, with implication s for health and disease. CKD is classified and staged based on cause, eGFR and albuminuria (quantified as urine albumin to creatinine ratio). An eGFR >60 mL/min/1.73 m2 in the absence of increased urine albumin excretion or structural abnormaliti es does not represent CKD. eGFR CKD Interpretat ion (mL/min/1.7 3 m2) stage >=90 G1 Normal 60-89 G2 Mild decrease 45-59 G3A Mild to moderate decrease 30-44 G3B Moderate to severe decrease 15-29 G4 Severe decrease <15 G5 Kidney failure Vitamin B12 test may not yield results when protein level of sample is too elevated. Ordering Provider: JAHAIRA NIETO Report Released Date/Time: Jan 19, 2024 10:26 AM Reporting Lab: [facility] [address] [address] Performing Lab: [facility] [address] [address] [facility] PANEL 2 ALKALINE PHOSPHATAS E [ENZYMATIC ACTIVITY/V OLUME] IN SERUM OR PLASMA 78 U/L 40 - 150 01/18 Specimen Type: PLASMA Comment: Estimated Glomerular Filtration Rate (eGFR) calculated using the 2020 Chronic Kidney Disease-Epi demiology (CKD-EPI) Collaborati on creatinine equation; units of measure are mL/min/1.73 m2. Results are only valid for adults (>=18 years) whose serum creatinine is in a steady state. eGFR calculation s are not valid for patients with acute kidney injury and for patients on dialysis. Creatinine- based estimates of kidney function may also be inaccurate in patients with reduced creatinine generation due to decreased muscle mass (e.g., malnutritio n, severe hypoalbumin emia, sarcopenia, chronic neuromuscul ar disease, amputations , severe heart failure or liver disease) and in patients with increased creatinine generation due to increased muscle mass (e.g., muscle builders, anabolic steroids) or increased dietary intake. As drug clearance is proportiona l to total GFR and not GFR indexed to body surface area (BSA), in individuals with a BSA substantial ly different than 1.73 m2, drug dosing should be based on the reported eGFR value de-indexed from BSA by multiplying by the individual' s BSA and dividing by 1.73. CKD is diagnosed based on abnormaliti es of kidney structure or function, present for >3 months, with implication s for health and disease. CKD is classified and staged based on cause, eGFR and albuminuria (quantified as urine albumin to creatinine ratio). An eGFR >60 mL/min/1.73 m2 in the absence of increased urine albumin excretion or structural abnormaliti es does not represent CKD. eGFR CKD Interpretat ion (mL/min/1.7 3 m2) stage >=90 G1 Normal 60-89 G2 Mild decrease 45-59 G3A Mild to moderate decrease 30-44 G3B Moderate to severe decrease 15-29 G4 Severe decrease <15 G5 Kidney failure Vitamin B12 test may not yield results when protein level of sample is too elevated. Ordering Provider: JAHAIRA NIETO Report Released Date/Time: Jan 19, 2024 10:26 AM Reporting Lab: [facility] [address] [address] Performing Lab: [facility] [address] [address] [facility] PANEL 2 BILIRUBIN. DIRECT [MASS/VOLU ME] IN SERUM OR PLASMA 0.1 mg/dL 0.0 - 0.5 01/18 Specimen Type: PLASMA Comment: Estimated Glomerular Filtration Rate (eGFR) calculated using the 2020 Chronic Kidney Disease-Epi demiology (CKD-EPI) Collaborati on creatinine equation; units of measure are mL/min/1.73 m2. Results are only valid for adults (>=18 years) whose serum creatinine is in a steady state. eGFR calculation s are not valid for patients with acute kidney injury and for patients on dialysis. Creatinine- based estimates of kidney function may also be inaccurate in patients with reduced creatinine generation due to decreased muscle mass (e.g., malnutritio n, severe hypoalbumin emia, sarcopenia, chronic neuromuscul ar disease, amputations , severe heart failure or liver disease) and in patients with increased creatinine generation due to increased muscle mass (e.g., muscle builders, anabolic steroids) or increased dietary intake. As drug clearance is proportiona l to total GFR and not GFR indexed to body surface area (BSA), in individuals with a BSA substantial ly different than 1.73 m2, drug dosing should be based on the reported eGFR value de-indexed from BSA by multiplying by the individual' s BSA and dividing by 1.73. CKD is diagnosed based on abnormaliti es of kidney structure or function, present for >3 months, with implication s for health and disease. CKD is classified and staged based on cause, eGFR and albuminuria (quantified as urine albumin to creatinine ratio). An eGFR >60 mL/min/1.73 m2 in the absence of increased urine albumin excretion or structural abnormaliti es does not represent CKD. eGFR CKD Interpretat ion (mL/min/1.7 3 m2) stage >=90 G1 Normal 60-89 G2 Mild decrease 45-59 G3A Mild to moderate decrease 30-44 G3B Moderate to severe decrease 15-29 G4 Severe decrease <15 G5 Kidney failure Vitamin B12 test may not yield results when protein level of sample is too elevated. Ordering Provider: JAHAIRA NIETO Report Released Date/Time: Jan 19, 2024 10:26 AM Reporting Lab: [facility] [address] [address] Performing Lab: [facility] [address] [address] [facility] B12 VITAMIN COBALAMIN (VITAMIN B12) [MASS/VOLU ME] IN SERUM OR PLASMA 413 pg/mL 213 - 816 01/18 Specimen Type: PLASMA Comment: Estimated Glomerular Filtration Rate (eGFR) calculated using the 2020 Chronic Kidney Disease-Epi demiology (CKD-EPI) Collaborati on creatinine equation; units of measure are mL/min/1.73 m2. Results are only valid for adults (>=18 years) whose serum creatinine is in a steady state. eGFR calculation s are not valid for patients with acute kidney injury and for patients on dialysis. Creatinine- based estimates of kidney function may also be inaccurate in patients with reduced creatinine generation due to decreased muscle mass (e.g., malnutritio n, severe hypoalbumin emia, sarcopenia, chronic neuromuscul ar disease, amputations , severe heart failure or liver disease) and in patients with increased creatinine generation due to increased muscle mass (e.g., muscle builders, anabolic steroids) or increased dietary intake. As drug clearance is proportiona l to total GFR and not GFR indexed to body surface area (BSA), in individuals with a BSA substantial ly different than 1.73 m2, drug dosing should be based on the reported eGFR value de-indexed from BSA by multiplying by the individual' s BSA and dividing by 1.73. CKD is diagnosed based on abnormaliti es of kidney structure or function, present for >3 months, with implication s for health and disease. CKD is classified and staged based on cause, eGFR and albuminuria (quantified as urine albumin to creatinine ratio). An eGFR >60 mL/min/1.73 m2 in the absence of increased urine albumin excretion or structural abnormaliti es does not represent CKD. eGFR CKD Interpretat ion (mL/min/1.7 3 m2) stage >=90 G1 Normal 60-89 G2 Mild decrease 45-59 G3A Mild to moderate decrease 30-44 G3B Moderate to severe decrease 15-29 G4 Severe decrease <15 G5 Kidney failure Vitamin B12 test may not yield results when protein level of sample is too elevated. Ordering Provider: JAHAIRA NIETO Report Released Date/Time: Jan 19, 2024 10:26 AM Reporting Lab: [facility] [address] [facility] [address] Performing Lab: [place] [address] [address] [facility] 25-OH VITAMIN D 25-HYDROXY VITAMIN D3 [MASS/VOLU ME] IN SERUM OR PLASMA 22.0 ng/mL 20.0 - 50.0 01/18 Specimen Type: SERUM Comment: The National Institutes of Health (NIH) recommendat ions state: <12 ng/mL - Deficient 20 - 50 ng/mL - Optimal Levels - adequate for most people. >50 ng/mL - Increased risk of hypercalciu robert/other health problems - clinical correlation is required. These reference ranges represent clinical decision values rather than population- based reference values. Ordering Provider: JAHAIRA NIETO Report Released Date/Time: Jan 19, 2024 10:26 AM Reporting Lab: [facility] [address] [address] Performing Lab: [facility] [address] [address] [facility] THYROID PROFILE THYROTROPI N [UNITS/VOL UME] IN SERUM OR PLASMA 1.4999 m[IU]/mL 0.3500 - 4.9400 01/18 Specimen Type: PLASMA Comment: Estimated Glomerular Filtration Rate (eGFR) calculated using the 2020 Chronic Kidney Disease-Epi demiology (CKD-EPI) Collaborati on creatinine equation; units of measure are mL/min/1.73 m2. Results are only valid for adults (>=18 years) whose serum creatinine is in a steady state. eGFR calculation s are not valid for patients with acute kidney injury and for patients on dialysis. Creatinine- based estimates of kidney function may also be inaccurate in patients with reduced creatinine generation due to decreased muscle mass (e.g., malnutritio n, severe hypoalbumin emia, sarcopenia, chronic neuromuscul ar disease, amputations , severe heart failure or liver disease) and in patients with increased creatinine generation due to increased muscle mass (e.g., muscle builders, anabolic steroids) or increased dietary intake. As drug clearance is proportiona l to total GFR and not GFR indexed to body surface area (BSA), in individuals with a BSA substantial ly different than 1.73 m2, drug dosing should be based on the reported eGFR value de-indexed from BSA by multiplying by the individual' s BSA and dividing by 1.73. CKD is diagnosed based on abnormaliti es of kidney structure or function, present for >3 months, with implication s for health and disease. CKD is classified and staged based on cause, eGFR and albuminuria (quantified as urine albumin to creatinine ratio). An eGFR >60 mL/min/1.73 m2 in the absence of increased urine albumin excretion or structural abnormaliti es does not represent CKD. eGFR CKD Interpretat ion (mL/min/1.7 3 m2) stage >=90 G1 Normal 60-89 G2 Mild decrease 45-59 G3A Mild to moderate decrease 30-44 G3B Moderate to severe decrease 15-29 G4 Severe decrease <15 G5 Kidney failure Vitamin B12 test may not yield results when protein level of sample is too elevated. Ordering Provider: JAHAIRA NIETO Report Released Date/Time: Jan 19, 2024 10:26 AM Reporting Lab: [facility] [address] [address] Performing Lab: [facility] [address] [address] [facility] THYROID PROFILE FREE T4 0.86 ng/mL 0.70 - 1.48 01/18 Specimen Type: PLASMA Comment: Estimated Glomerular Filtration Rate (eGFR) calculated using the 2020 Chronic Kidney Disease-Epi demiology (CKD-EPI) Collaborati on creatinine equation; units of measure are mL/min/1.73 m2. Results are only valid for adults (>=18 years) whose serum creatinine is in a steady state. eGFR calculation s are not valid for patients with acute kidney injury and for patients on dialysis. Creatinine- based estimates of kidney function may also be inaccurate in patients with reduced creatinine generation due to decreased muscle mass (e.g., malnutritio n, severe hypoalbumin emia, sarcopenia, chronic neuromuscul ar disease, amputations , severe heart failure or liver disease) and in patients with increased creatinine generation due to increased muscle mass (e.g., muscle builders, anabolic steroids) or increased dietary intake. As drug clearance is proportiona l to total GFR and not GFR indexed to body surface area (BSA), in individuals with a BSA substantial ly different than 1.73 m2, drug dosing should be based on the reported eGFR value de-indexed from BSA by multiplying by the individual' s BSA and dividing by 1.73. CKD is diagnosed based on abnormaliti es of kidney structure or function, present for >3 months, with implication s for health and disease. CKD is classified and staged based on cause, eGFR and albuminuria (quantified as urine albumin to creatinine ratio). An eGFR >60 mL/min/1.73 m2 in the absence of increased urine albumin excretion or structural abnormaliti es does not represent CKD. eGFR CKD Interpretat ion (mL/min/1.7 3 m2) stage >=90 G1 Normal 60-89 G2 Mild decrease 45-59 G3A Mild to moderate decrease 30-44 G3B Moderate to severe decrease 15-29 G4 Severe decrease <15 G5 Kidney failure Vitamin B12 test may not yield results when protein level of sample is too elevated. Ordering Provider: JAHAIRA NIETO Report Released Date/Time: Jan 19, 2024 10:26 AM Reporting Lab: [place] [id number] Performing Lab: [address] CBC/PLT LEUKOCYTES [#/VOLUME] IN BLOOD BY AUTOMATED COUNT 5.0 10*3/uL 5.0 - 10.0 01/18 Specimen Type: BLOOD No comment entered. Ordering Provider: JAHAIRA NIETO Report Released Date/Time: Jan 19, 2024 10:26 AM Reporting Lab: [place] [address] Performing Lab: [place] [id number] [facility] CBC/PLT ERYTHROCYT ES [#/VOLUME] IN BLOOD BY AUTOMATED COUNT 4.53 10*6/uL 4.2 - 5.4 01/18 Specimen Type: BLOOD No comment entered. Ordering Provider: JAHAIRA NIETO Report Released Date/Time: Jan 19, 2024 10:26 AM Reporting Lab: [place] [id number] Performing Lab: [place] [id number] [place] [address] CBC/PLT HEMOGLOBIN [MASS/VOLU ME] IN BLOOD 12.5 g/dL 12.0 - 16.0 01/18 Specimen Type: BLOOD No comment entered. Ordering Provider: JAHAIRA NIETO Report Released Date/Time: Jan 19, 2024 10:26 AM Reporting Lab: [address] [address] Performing Lab: [address] CBC/PLT HEMATOCRIT [VOLUME FRACTION] OF BLOOD BY AUTOMATED COUNT 40.1 37.0 - 47.0 01/18 Specimen Type: BLOOD No comment entered. Ordering Provider: JAHAIRA NIETO Report Released Date/Time: Jan 19, 2024 10:26 AM Reporting Lab: [address] [address] Performing Lab: [place] [id number] [place] [address] CBC/PLT MCV [ENTITIC VOLUME] BY AUTOMATED COUNT 88.5 fL 79.0 - 97.0 01/18 Specimen Type: BLOOD No comment entered. Ordering Provider: JAHAIRA NIETO Report Released Date/Time: Jan 19, 2024 10:26 AM Reporting Lab: [address] [address] Performing Lab: [address] [address] [facility] CBC/PLT MCH [ENTITIC MASS] BY AUTOMATED COUNT 27.6 pg 27.0 - 31.0 01/18 Specimen Type: BLOOD No comment entered. Ordering Provider: JAHAIRA NIETO Report Released Date/Time: Jan 19, 2024 10:26 AM Reporting Lab: [address] [address] Performing Lab: [address] [address] [facility] CBC/PLT MCHC [MASS/VOLU ME] BY AUTOMATED COUNT 31.2 g/dL 32.0 - 36.0 01/18 L Specimen Type: BLOOD No comment entered. Ordering Provider: JAHAIRA NIETO Report Released Date/Time: Jan 19, 2024 10:26 AM Reporting Lab: [address] [address] Performing Lab: [address] [address] [facility] CBC/PLT PLATELETS [#/VOLUME] IN BLOOD 362 10*3/uL 150 - 450 01/18 Specimen Type: BLOOD No comment entered. Ordering Provider: JAHAIRA NIETO Report Released Date/Time: Jan 19, 2024 10:26 AM Reporting Lab: [address] [address] Performing Lab: [place] [id number] [facility] CBC/PLT PLATELET MEAN VOLUME [ENTITIC VOLUME] IN BLOOD 10.0 fL 9.0 - 13.1 01/18 Specimen Type: BLOOD No comment entered. Ordering Provider: JAHAIRA NIETO Report Released Date/Time: Jan 19, 2024 10:26 AM Reporting Lab: [address] [address] Performing Lab: [address] [address] [facility] CBC/PLT ERYTHROCYT E DISTRIBUTI ON WIDTH [ENTITIC VOLUME] BY AUTOMATED COUNT 13.9 11.0 - 16.0 01/18 Specimen Type: BLOOD No comment entered. Ordering Provider: JAHAIRA NIETO Report Released Date/Time: Jan 19, 2024 10:26 AM Reporting Lab: [address] [address] Performing Lab: [address] [address] [facility] CBC/PLT NUCLEATED ERYTHROCYT ES/100 ERYTHROCYT ES IN BLOOD 0.0 0.0 - 0.0 01/18 Specimen Type: BLOOD No comment entered. Ordering Provider: JAHAIRA NIETO Report Released Date/Time: Jan 19, 2024 10:26 AM Reporting Lab: [address] [address] Performing Lab: [address] [address] [facility] GLYCOHEM OGLOBIN HEMOGLOBIN A1C/HEMOGL OBIN.TOTAL IN BLOOD BY HPLC 5.4 4.4 - 6.4 01/18 Specimen Type: BLOOD Comment: [facility] guidelines for A1c interpretat ion: Glycemic control targets are based on Shared Decision Making between clinicians and patients. Criteria used to establish an A1c target recommendat ion can be found at https://www .[place].gov/reg lityandpati entsafety/ and include the use of result accuracy and precision(C V) of the A1c tests clinicians utilize at their own sites of practice. Values obtained from A1C measurement s can vary. For typical A1C assays, a reported value of 7.0 could actually be between 6.72 and 7.28 if measured by a reference method. A reported value of 9.0 could actually be between 8.73 and 9.27. Ref: https://ngs p.org/CAPda ta.asp. The in-house [employer] D-100 analyzer has a historical CV <= 2%. Contact the laboratory for further performance characteris tics of this assay. Ordering Provider: JAHAIRA NIETO Report Released Date/Time: Jan 19, 2024 10:26 AM Reporting Lab: [address] [phone] Performing Lab: [address] [address] [facility] LIPID PROFILE CHOLESTERO L [MASS/VOLU ME] IN SERUM OR PLASMA 220 mg/dL 0 - 199 01/18 H Specimen Type: PLASMA Comment: Estimated Glomerular Filtration Rate (eGFR) calculated using the 2020 Chronic Kidney Disease-Epi demiology (CKD-EPI) Collaborati on creatinine equation; units of measure are mL/min/1.73 m2. Results are only valid for adults (>=18 years) whose serum creatinine is in a steady state. eGFR calculation s are not valid for patients with acute kidney injury and for patients on dialysis. Creatinine- based estimates of kidney function may also be inaccurate in patients with reduced creatinine generation due to decreased muscle mass (e.g., malnutritio n, severe hypoalbumin emia, sarcopenia, chronic neuromuscul ar disease, amputations , severe heart failure or liver disease) and in patients with increased creatinine generation due to increased muscle mass (e.g., muscle builders, anabolic steroids) or increased dietary intake. As drug clearance is proportiona l to total GFR and not GFR indexed to body surface area (BSA), in individuals with a BSA substantial ly different than 1.73 m2, drug dosing should be based on the reported eGFR value de-indexed from BSA by multiplying by the individual' s BSA and dividing by 1.73. CKD is diagnosed based on abnormaliti es of kidney structure or function, present for >3 months, with implication s for health and disease. CKD is classified and staged based on cause, eGFR and albuminuria (quantified as urine albumin to creatinine ratio). An eGFR >60 mL/min/1.73 m2 in the absence of increased urine albumin excretion or structural abnormaliti es does not represent CKD. eGFR CKD Interpretat ion (mL/min/1.7 3 m2) stage >=90 G1 Normal 60-89 G2 Mild decrease 45-59 G3A Mild to moderate decrease 30-44 G3B Moderate to severe decrease 15-29 G4 Severe decrease <15 G5 Kidney failure Vitamin B12 test may not yield results when protein level of sample is too elevated. Ordering Provider: JAHAIRA NIETO Report Released Date/Time: Jan 19, 2024 10:26 AM Reporting Lab: [facility] [address] [address] Performing Lab: [facility] [address] [address] [facility] LIPID PROFILE TRIGLYCERI DE [MASS/VOLU ME] IN SERUM OR PLASMA 74 mg/dL 0 - 149 01/18 Specimen Type: PLASMA Comment: Estimated Glomerular Filtration Rate (eGFR) calculated using the 2020 Chronic Kidney Disease-Epi demiology (CKD-EPI) Collaborati on creatinine equation; units of measure are mL/min/1.73 m2. Results are only valid for adults (>=18 years) whose serum creatinine is in a steady state. eGFR calculation s are not valid for patients with acute kidney injury and for patients on dialysis. Creatinine- based estimates of kidney function may also be inaccurate in patients with reduced creatinine generation due to decreased muscle mass (e.g., malnutritio n, severe hypoalbumin emia, sarcopenia, chronic neuromuscul ar disease, amputations , severe heart failure or liver disease) and in patients with increased creatinine generation due to increased muscle mass (e.g., muscle builders, anabolic steroids) or increased dietary intake. As drug clearance is proportiona l to total GFR and not GFR indexed to body surface area (BSA), in individuals with a BSA substantial ly different than 1.73 m2, drug dosing should be based on the reported eGFR value de-indexed from BSA by multiplying by the individual' s BSA and dividing by 1.73. CKD is diagnosed based on abnormaliti es of kidney structure or function, present for >3 months, with implication s for health and disease. CKD is classified and staged based on cause, eGFR and albuminuria (quantified as urine albumin to creatinine ratio). An eGFR >60 mL/min/1.73 m2 in the absence of increased urine albumin excretion or structural abnormaliti es does not represent CKD. eGFR CKD Interpretat ion (mL/min/1.7 3 m2) stage >=90 G1 Normal 60-89 G2 Mild decrease 45-59 G3A Mild to moderate decrease 30-44 G3B Moderate to severe decrease 15-29 G4 Severe decrease <15 G5 Kidney failure Vitamin B12 test may not yield results when protein level of sample is too elevated. Ordering Provider: JAHAIRA NIETO Report Released Date/Time: Jan 19, 2024 10:26 AM Reporting Lab: [facility] [address] [facility] [address] Performing Lab: [facility] [address] [facility] [address] [facility] LIPID PROFILE CHOLESTERO L IN HDL [MASS/VOLU ME] IN SERUM OR PLASMA 73 mg/dL 40 - 69 01/18 H Specimen Type: PLASMA Comment: Estimated Glomerular Filtration Rate (eGFR) calculated using the 2020 Chronic Kidney Disease-Epi demiology (CKD-EPI) Collaborati on creatinine equation; units of measure are mL/min/1.73 m2. Results are only valid for adults (>=18 years) whose serum creatinine is in a steady state. eGFR calculation s are not valid for patients with acute kidney injury and for patients on dialysis. Creatinine- based estimates of kidney function may also be inaccurate in patients with reduced creatinine generation due to decreased muscle mass (e.g., malnutritio n, severe hypoalbumin emia, sarcopenia, chronic neuromuscul ar disease, amputations , severe heart failure or liver disease) and in patients with increased creatinine generation due to increased muscle mass (e.g., muscle builders, anabolic steroids) or increased dietary intake. As drug clearance is proportiona l to total GFR and not GFR indexed to body surface area (BSA), in individuals with a BSA substantial ly different than 1.73 m2, drug dosing should be based on the reported eGFR value de-indexed from BSA by multiplying by the individual' s BSA and dividing by 1.73. CKD is diagnosed based on abnormaliti es of kidney structure or function, present for >3 months, with implication s for health and disease. CKD is classified and staged based on cause, eGFR and albuminuria (quantified as urine albumin to creatinine ratio). An eGFR >60 mL/min/1.73 m2 in the absence of increased urine albumin excretion or structural abnormaliti es does not represent CKD. eGFR CKD Interpretat ion (mL/min/1.7 3 m2) stage >=90 G1 Normal 60-89 G2 Mild decrease 45-59 G3A Mild to moderate decrease 30-44 G3B Moderate to severe decrease 15-29 G4 Severe decrease <15 G5 Kidney failure Vitamin B12 test may not yield results when protein level of sample is too elevated. Ordering Provider: JAHAIRA NIETO Report Released Date/Time: Jan 19, 2024 10:26 AM Reporting Lab: [facility] [address] [phone] Performing Lab: [facility] [address] [address] [facility] LIPID PROFILE CHOLESTERO L IN LDL [MASS/VOLU ME] IN SERUM OR PLASMA BY DIRECT ASSAY 129 mg/dL 0 - 100 01/18 H Specimen Type: PLASMA Comment: Estimated Glomerular Filtration Rate (eGFR) calculated using the 2020 Chronic Kidney Disease-Epi demiology (CKD-EPI) Collaborati on creatinine equation; units of measure are mL/min/1.73 m2. Results are only valid for adults (>=18 years) whose serum creatinine is in a steady state. eGFR calculation s are not valid for patients with acute kidney injury and for patients on dialysis. Creatinine- based estimates of kidney function may also be inaccurate in patients with reduced creatinine generation due to decreased muscle mass (e.g., malnutritio n, severe hypoalbumin emia, sarcopenia, chronic neuromuscul ar disease, amputations , severe heart failure or liver disease) and in patients with increased creatinine generation due to increased muscle mass (e.g., muscle builders, anabolic steroids) or increased dietary intake. As drug clearance is proportiona l to total GFR and not GFR indexed to body surface area (BSA), in individuals with a BSA substantial ly different than 1.73 m2, drug dosing should be based on the reported eGFR value de-indexed from BSA by multiplying by the individual' s BSA and dividing by 1.73. CKD is diagnosed based on abnormaliti es of kidney structure or function, present for >3 months, with implication s for health and disease. CKD is classified and staged based on cause, eGFR and albuminuria (quantified as urine albumin to creatinine ratio). An eGFR >60 mL/min/1.73 m2 in the absence of increased urine albumin excretion or structural abnormaliti es does not represent CKD. eGFR CKD Interpretat ion (mL/min/1.7 3 m2) stage >=90 G1 Normal 60-89 G2 Mild decrease 45-59 G3A Mild to moderate decrease 30-44 G3B Moderate to severe decrease 15-29 G4 Severe decrease <15 G5 Kidney failure Vitamin B12 test may not yield results when protein level of sample is too elevated. Ordering Provider: JAHAIRA NIETO Report Released Date/Time: Jan 19, 2024 10:26 AM Reporting Lab: [address] [address] Performing Lab: [address] [phone] [facility] HCV HEPATITIS C VIRUS AB [PRESENCE] IN SERUM OR PLASMA BY IMMUNOASSA Y Nonreact dave 01/18 Specimen Type: SERUM Comment: FOR HCV TESTING: Reactive HCV indicates probable Hepatitis C infection. All reactive Hepatitis C antibody results are flagged (reported as REACTIVE H) to enhance infectious disease tracking for [facility] patients. A nonreactive HCV antibody result does not exclude the possibility of exposure to HCV. Refer to https://www .hepatitis. va.gov/ and the latest [facility] Hepatitis Directive for additional information and supplementa l testing guidelines. Ordering Provider: JAHAIRA NIETO Report Released Date/Time: Jan 19, 2024 10:26 AM Reporting Lab: [address] [address] Performing Lab: [address] [address] [facility] Vital Signs Combined list of inpatient and outpatient Vital Signs from Department of Defense and Veterans Affairs, ranging from 12 months to all on record, depending upon the facility. Vital Sign Value Date Comments Source SYSTOLIC BLOOD PRESSURE 110 08/01/2024 08:39:08 [facility] DIASTOLIC BLOOD PRESSURE 73 08/01/2024 08:39:08 [facility] PULSE OXIMETRY 99 08/01/2024 08:39:08 L [facility] WEIGHT 207 08/01/2024 08:39:08 [facility] BMI 31 kg/m2 08/01/2024 08:39:08 [facility] PAIN 0 08/01/2024 08:39:08 [facility] TEMPERATURE 97.2 08/01/2024 08:39:08 [facility] PULSE 78 08/01/2024 08:39:08 [facility] Encounters Combined list of: 1) Encounters from Department of [facility] Affairs facilities going backup to the last 18 months, not all VA inpatient encounters are included; 2) Encounters from the Department of Defense facilities going backup to 280 months. Location Location Details Encounter Type Encounter Number Reason For Visit Attending Provider ADM Date DC Date Status Disposition Source Halley ibarra [facility] [place]([facility]) TELE CONSULT [id number] VITORRA CARTER SOCTT 01/02 Halley riley [facility] [place]([facility] e) [facility], [place] [address](AFN G [address]) OUTPATIENT [id number] Notes Entered by: ALESSANDRA FONSECA 06 Jan 2018 1150 ------- ------- ------- ------- -- ALESSANDRA SHARPE 01/06 Released w/o Limitations [facility] [place] [address](A FNG [address]) [place] [address](AFN G [address]) OUTPATIENT [id number] Notes Entered by: Tiara SHARMA 18 Feb 2018 0811 ------- ------- ------- ------- -- Consult VIKKI GRAY 02/18 Released w/o Limitations [facility] [place] [address](A FNG [address]) [place] [id number](AFN G [address]) OUTPATIENT [id number] Notes Entered by: RAFIQ OLIVERA 01 Dec 2018 1320 ------- ------- ------- ------- -- Tri Service PHA RAFIQ OLIVERA 12/01 Released w/o Limitations [facility] [place] [address](A FNG [address]) [place] [address](AFN G [address]) OUTPATIENT [id number] Notes Entered by: RAFIQ OLIVERA 04 Dec 2019 2254 ------- ------- ------- ------- -- Tri Service RAFIQ THOMAS 12/05 Released w/o Limitations [facility] [place] [address](A FNG [address]) [place] [address](AFN G [address]) TELE CONSULT [id number] Notes Entered by: RAFIQ OLIVERA 20 May 2020 1145 ------- ------- ------- ------- -- 469 for shoulde r issue RAFIQ OLIVERA 05/20 [facility] [place] [address](A FNG [address]) [place] [address](AFN G [address]) OUTPATIENT [id number] Notes Entered by: RAFIQ OLIVERA 22 May 2020 0939 ------- ------- ------- ------- -- PHANI 2 RAFIQ OLIVERA 05/22 Released w/o Limitations [facility] [place] [address](A FNG [address]) [place] [address](AFN G [address]) OUTPATIENT [id number] Notes Entered by: RAFIQ OLIVERA 18 Feb 2021 1007 ------- ------- ------- ------- -- Tri Service RAFIQ THOMAS 02/18 [facility] Limitations [facility] [place] [place] [address](A FNG [address]) [place] [facility] [place] [address](AFN G [address]) OUTPATIENT [id number] Notes Entered by: SAGAR EVANS 14 May 2022 0839 ------- ------- ------- ------- -- Non-Fly PHA DANIEL DONALD 05/14 Released w/o Limitations [facility] [place] [address](A FNG [address]) [place] [address](AFN G [address]) OUTPATIENT [id number] Notes Entered by: GE PRYOR 10 Apr 2023 1226 ------- ------- ------- ------- -- Annual PHAQ/MH GE PADILLA 04/10 Released w/o Limitations [facility] [place] [address](A FNG [address]) [facility] Outpatient Encounter [id number] 01/12 [place] [facility] Outpatient Encounter [id number] 01/12 [place] [facility] OFFICE O/P NEW MOD 45 MIN [id number] Diagnos is: ICD-10- CM H81.8X9 Other disorde rs of vestibu lar functio n, unspeci fied ear JAHAIRA NIETO 01/18 [place] [facility] ELECTROCAR DIOGRAM COMPLETE [id number] Diagnos is: ICD-10- CM Z13.6 Encount er for screeni ng for cardiov ascular disorde rs BRENDEN PALACIOS IG A 01/18 [place] [facility] Outpatient Encounter [id number] 01/18 [place] [facility] CASE MANAGEMENT [id number] Diagnos is: ICD-10- CM Z71.89 Other specifi ed work counselor JEROME [place] 01/18 [place] [facility] Outpatient Encounter [id number] 01/23 [place] [facility] Outpatient Encounter [id number] 01/29 [place] [facility] PSYTX W PT 30 MINUTES [id number] Diagnos is: ICD-10- CM F43.20 Adjustm ent disorde r, unspecJOSE Hightower ANY M 02/07 [place] [facility] PSYTX W PT 30 MINUTES [id number] Diagnos is: ICD-10- CM F43.20 Adjustm ent disorde r, unspecJOSE Hightower ANY M 02/21 [place] [facility] Outpatient Encounter [id number] 02/27 [place] [facility] PSYTX W PT 30 MINUTES [id number] Diagnos is: ICD-10- CM F43.20 Adjustm ent disorde r, JOSE Ireland ANY M 03/07 [place] [facility] PSYTX W PT 30 MINUTES [id number] Diagnos is: ICD-10- CM F43.20 Adjustm ent disorde r, unspecJOSE Hightower ANY M 03/21 [place] [facility] PSYTX W PT 45 MINUTES [id number] Diagnos is: ICD-10- CM F43.20 Adjustm ent disorde r, unspeci JOSE Bailey ANY M 04/04 [place] [facility] PSYTX W PT 30 MINUTES [id number] Diagnos is: ICD-10- CM F43.20 Adjustm ent disorde r, unspeci JOSE Bailey ANY M 04/18 [place] [facility] HC PRO PHONE CALL 21-30 MIN [id number] Diagnos is: ICD-10- CM F43.9 Reactio n to severe stress, unspeci sherrell HEADLEY,ER [place] 04/27 [place] [facility] Outpatient Encounter [id number] 05/31 [place] [facility] PSYCH DIAGNOSTIC EVALUATION [id number] Diagnos is: ICD-10- CM F41.1 General ized anxiety disorde r KAYODE,ER IN 05/31 [place] [facility] PSYTX W PT 30 MINUTES [id number] Diagnos is: ICD-10- CM F41.1 General ized anxiety disorde r Radha SCHMID 06/07 [place] [facility] PSYCH DIAGNOSTIC EVALUATION [id number] Diagnos is: ICD-10- CM F41.1 General ized anxiety disorde r Jose M GARZA 07/02 [place] [facility] OFF/OP CNSLTJ NEW/EST MOD 40 [id number] Diagnos is: ICD-10- CM F80.1 Express dave languag e disorde r REBECA SHYANN Evelyn 08/01 [place] [facility] SPEECH SOUND LANG COMPREHEN [id number] Diagnos is: ICD-10- CM R41.841 Cogniti ve communi cation deficit ENGRAM,TER RI L 08/01 [place] [facility] PSYTX W PT 60 MINUTES [id number] Diagnos is: ICD-10- CM F41.1 General ized anxiety disorde Jose M Alvarado HEMami 08/07 [place] [facility] PSYTX W PT 60 MINUTES [id number] Diagnos is: ICD-10- CM F43.9 Reactio n to severe stress, unspeci Jose M Mcqueen HEMami 08/21 [place] [facility] SPEECH/HEA RING THERAPY [id number] Diagnos is: ICD-10- CM R41.841 Cogniti ve communi cation deficit ENGRAM,TER RI L 08/30 [place] [facility] PSYTX W PT 60 MINUTES [id number] Diagnos is: ICD-10- CM F43.9 Reactio n to severe stress, unspeci Jose M Mcqueen HEMami 09/04 [place] [facility] PSYTX W PT 60 MINUTES [id number] Diagnos is: ICD-10- CM F43.9 Reactio n to severe stress, unspeci Jose M Mcqueen 09/18 [place] [facility] Outpatient Encounter [id number] 09/20 [place] [facility] Outpatient Encounter [id number] 10/01 [place] [facility] HC PRO PHONE CALL 5-10 MIN [id number] Diagnos is: ICD-10- CM Z71.89 Other specifi ed work counselor SHANNAN Hicks 10/02 [place] [facility] PSYTX W PT 60 MINUTES [id number] Diagnos is: ICD-10- CM F43.9 Reactio n to severe stress, unspeci Jose M Mcqueen 10/09 [place] [facility] Outpatient Encounter [id number] 11/06 [place] [facility] Outpatient Encounter [id number] 11/19 [place] [facility] PSYTX W PT 60 MINUTES [id number] Diagnos is: ICD-10- CM F43.9 Reactio n to severe stress, unspeci Jose M Mcqueen 11/27 [place] [facility] PSYTX W PT 60 MINUTES [id number] Diagnos is: ICD-10- CM F43.9 Reactio n to severe stress, unspeci Jose M Mcqueen HEMami 12/11 [place] [facility] Outpatient Encounter [id number] 12/28 [place] [facility] PSYTX W PT 60 MINUTES [id number] Diagnos is: ICD-10- CM F43.9 Reactio n to severe stress, unspeci fiwen GARZAT HEA 01/08 [place] [facility] Outpatient Encounter [id number] NEELIMASTEPHANIA HUGO ANA LAURA 01/16 [place] [facility] Outpatient Encounter [id number] 01/23 [place] [facility] Outpatient Encounter [id number] 01/23 [place] PSYTX W PT 30 MINUTES [id number] Diagnos is: ICD-10- CM F43.9 Reactio n to severe stress, unspeci sherrell Jose M GARZA 02/22 [place] [facility] Procedures Combined list of: 1) Procedures from Department of Veterans Affairs facilities going back up to thelast 18 months, not all [place] non-surgical procedures are included; 2) All procedures from the Department of Defense facilities. Procedure Procedure Type Code Date Perfomer Comments Sourc e No data available for this section Ambulato ry Pharmacy EPISIOTOMY 03/10/1995 [facility] INJECTION OF RH IMMUNE GLOBULIN 03/10/1995 [facility] CONIZATION OF CERVIX 07/07/1992 [facility] Social History Combined list of available smoking, tobacco, and other social history from Department of Defense and Veterans Affairs facilities. Social History Type Response Date Comment Sourc e Tobacco smoking status NHIS VA-TOBACCO FORMER USER 01/19/2024 [facility] History of tobacco use VA-TOBACCO QUIT 1 5 YRS OR MORE 01/19/2024 [facility] Sex Representation Female (finding) 02/12/2022 Unknown Organization History of tobacco use V7-TOBACCO QUIT DATE 07/05/2008 [facility] History of tobacco use V7-HX TOBACCO USE R >12 MONTHS <7 YEARS 07/05/2008 [facility] History of tobacco use LIFETIME NON/TOBACCO USER 08/30/2006 [facility] Sexual Orientation Ambula tory Pharmacy Gender identity Ambulator y Pharmacy This section is an empty social history section. DoD Assessment and Plan Combined list of future care activities from Department of Defense and Veterans Affairs facilities (e.g., assessment and plan notes, appointments, orders, and referrals). Additional future care activities may be listed in the Plan of Care section. Result Assessment and Plan Date Source Assessment and Plan No data available for this section 03/13/2025 Ambulatory Pharmacy Plan of Care List of future care activities from Department of Veterans Affairs facilities. Additional future care activities may be listed in the Assessment and Plan section. Date/Time Care Activity Care Activity Detail Facili ty 03/18/2025 AMBULATORY - PSYCHIATRY AMBULATORY - PSYC HIATRY [facility] Functional Status Combined list of recent functional and cognitive assessments recorded at Department of Defense and Veterans Affairs (VA).VA Functional [place] Measurement (FIM) Scale: 1 = Total Assistance (Subject = 0% +), 2 = Maximal Assistance (Subject = 25% +), 3 = Moderate Assistance (Subject = 50% +), 4 = Minimal Assistance (Subject = 75% +), 5 = Supervision, 6 = Modified [place] (Device), 7 = Complete [place] (Timely, Safely). Assessment Date/Time Source Assessment Type Assessment Skill Assessment Score Assessment Details No data available for this section
--- OUTSIDE RECORDS SUMMARY | 2025-03-13 09:23 | XMS_ITS | Encounter Summary ---
Author Name [facility] [place] Organization [facility] Address [address] [place] [address] Care Team Providers Care Furrier Shop Supervisor Name Role Phone JAHAIRA NIETO Primary Care [...] Ritter's Name Patient's Relationship to Policy Ritter [facility] 2024 [facility] Nov 07, 2024 [facility] [phone] VITO MUSTAFA PATIENT Selected Encounter This section includes the information on record at [place] for the Encounter. Date/Time Encounter Type Encounter Description Reason Provider Source Oct 09, 2024 09:30 AM PSYTX W PT 60 MINUTES [facility] ICD-10-CM F43.9 Reaction to severe stress, unspecified SANFORD GARZA Radha Encounter Template Text not used by [place] Assessments - Encounter Diagnoses This section includes the primary and secondary diagnoses documented for the Encounter. Date/Time Primary/Secondary Diagnosis Diagnosis Name Provider Source Oct 09, 2024 11:26 AM PRIMARY Reaction to severe stress, unspecified [facility]FORD GARZA [facility] Oct 09, 2024 11:26 AM SECONDARY Generalized anxiety disorder [facility]FORD GARZA [facility] Plan of Treatment: Future Appointments (+ 6 months) and Future Tests (+/- 45 days) The Plan of Treatment section includes future care activities for the patient from all [place] [facility] This section includes future appointments and future orders which are active, pending or scheduled. Future Appointments This section includes appointments that were scheduled to occur 6 months from the date of the Encounter, up to a maximum of 20 appointments. The data comes from all [facility] facilities. Appointment Date/Time Appointment Type Appointme nt Facility Name Nov 27, 2024 09:30 AM AMBULATORY - PSYCHIATRY [facility] Dec 11, 2024 09:30 AM AMBULATORY - PSYCHIATRY [facility] Jan 08, 2025 09:30 AM AMBULATORY - PSYCHIATRY [facility] Feb 22, 2025 09:30 AM AMBULATORY - PSYCHIATRY [facility] March 18, 2025 09:30 AM AMBULATORY PSYCHIATRY [facility] Social History: Smoking Status (Most current) and Tobacco Use (All prior to encounter date) This section includes the most current, and the historical, smoking and tobacco- related health factors from the [place] facility where the Encounter took place. Current Smoking Status This section includes the most current smoking, or tobacco-related health factor, from the [place] facility where the Encounter took place. Date/Time Current Smoking Status Comment Facil ity Jan 19, 2024 09:30 AM [place]-TO[place]ACCO FORMER USER [facility] Tobacco Use History This section includes a history of the smoking, or tobacco-related health factors, that were collected on or before the date of the Encounter. The data comes from the [place] facility where the Encounter took place. Date/Time Smoking Status/Tobacco Use Comment F acility Jan 19, 2024 09:30 AM [place]-TOBACCO QUIT 15 YRS OR MORE [facility] Encounter Notes: All associated encounter notes This section contains the clinical notes associated to the Encounter. Date/Time Encounter Note(s) Provider Source Oct 09, 2024 11:39 AM MENTAL HEALTH FEDE TMENT PLAN NOTE: LOCAL TITLE: S MASTER TREATMENT PLAN STANDARD TITLE: MENTAL HEALTH TREATMENT PLAN NOTE DATE OF NOTE: OCT 09, 2024@11:39 ENTRY DATE: OCT 09, 2024@11:39:57 AUTHOR: SANFORD GARZA EXP COSIGNER: URGENCY: STATUS: COMPLETED TREATMENT <S MASTER TREATMENT PLAN> - 3 Oct, 2024 @ 11:39AM Visit Date: Oct, @ 09:30 - [facility] GIZZARD SKIN REMOVER: KELLY SNIDER / KESHAWN [facility] TEAM #4/V09 TREATMENT PLAN: Problem: Problem/Need: [PTSD]: I have been experiencing the following post-traumatic stress symptoms: hyper-vigilance, anger, distrust . Status: ACTIVE Goal: I want to reduce hyper-vigilance, anger, and distrust Status: ACTIVE Objective: I will learn how to improve how I handle the distress I feel when I am exposed to triggers associated with trauma. Progress will be measured through assessment measures and self-report Status: ACTIVE Projected Target: 11/08/2024 Intervention: [PSYCHOTHERAPY] My provider will work with me to achieve this goal and objective through individual CBT and psycho-education Status: ACTIVE Discipline: Mental Health Clinic Time Frame: One time every 2 weeks for 1 year Problem: Problem/Need: [ANXIETY]: I have been experiencing a pattern of anxiety, including the following symptoms/behaviors: heightened alertness, increased worry and anger. Status: ACTIVE Goal: I want to lower the level of my anxiety. Status: ACTIVE Objective: I will learn how to improve my reaction to stress by practicing relaxation exercises daily. Progress will be measured through self report and in-office assessments Status: ACTIVE Projected Target: 11/08/2024 Intervention: [PSYCHOTHERAPY] My provider will work with me to achieve this goal and objective through individual therapy (psycho-educational, CBT) Status: ACTIVE Discipline: Mental Health Clinic Time Frame: One time every 2 weeks for 1 year DISCIPLINE: Mental Health Clinic Entered Treatment: 10/09/2024 @ 11:34AM Review Date: 10/09/2025 Anticipated Discharge: None PATIENT ACTION: PATIENT AGREED TO PLAN DISCUSSED. FAMILY ACTION: PATIENT DECLINED FAMILY PARTICIPATION. COMMUNICATION: Relevant treatment options, including evidence-based interventions, were considered and discussed with the . YES A copy of the treatment plan was given to the . NO Risks, benefits, and potential complications were discussed with the . YES /guilherme/ NITZA Nelson LCSW LICENSED CLINICAL WAITER/WAITRESS Signed: 10/09/2024 11:39 Receipt Acknowledged By: 10/09/2024 11:49 /[email or web address]/ Kelly Snider LCSW Mental Health Gasoline Tester [facility] Oct 09, 2024 11:00 AM MENTAL HEALTH NOTE : LOCAL TITLE: [facility] PSYCHOTHERAPY NOTE STANDARD TITLE: MENTAL HEALTH NOTE DATE OF NOTE: OCT 09, 2024@11:00 ENTRY DATE: OCT 09, 2024@11:00:43 AUTHOR: SANFORD GARZA COSIGNER: URGENCY: STATUS: COMPLETED Date of Session: OCT 09, 2024 Duration of Session: 60 minutes Session [...] engage in treatment planning: intact C-SSRS Screening [place]-Suicide Severity Rating Scale (C-SSRS Screener) 1. Over [...] Data: Whole Health Interventions Session Content: reported is was nice to visit with family in [place] however her wryecg-ex-pnz made it challenging for her to completely relax and enjoy herself. She described experiencing constant sarcastic remarks throughout her visit and an increase while the family was playing games and trying to have fun. [place] stated that her son spent most of the trip byher side and offering support. She reported before leaving she did respond to one comment made by her ekwrih-kr-ngp. This provider acknowledged and normalized everyone has a limit to how much they can or are willing to take. Processed her respond and discussed despite how she felt it was delivered appropriately and seemed to hit it pavel based on the dtvgkq-wp-eap's reaction. 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 Discussed engagement in self-care and self-soothing activity to manage stress and anxiety. Therapeutic Intervention: processing, psychoeducation, support Patient Response to Treatment: actively engaged, self-aware, insightful, open and receptive to feedback Progress Towards Treatment Goal: positive progress Plan and Scheduling Instructions: 11/13@9:30am; 11/27@930am;12/11@9:30am Pain management, if needed, is managed by primary care. Reason for Ordering Tests, Consults or Changes in Medications: /guilherme/ NITZA Nelson, PROGRAMMING ENGINEER LICENSED CLINICAL WAITER/WAITRESS Signed: 10/09/2024 11:26 SANFORD GARZA [facility]
--- OUTSIDE RECORDS SUMMARY | 2025-03-13 09:23 | XMS_ITS ---
Author Name [facility] [place] Address [address] [place] [address] Care Team Providers Care Police Records Clerk Name Role Phone JAHAIRA NIETO Primary Care [...] Ritter's Name Patient's Relationship to Policy Ritter [facility] 2024 [facility] Nov 07, 2024 [facility] [id number] VITO MUSTAFA PATIENT Selected Encounter This section includes the information on record at [place] for the Encounter. Date/Time Encounter Type Encounter Description Reason Pro vider Source Sep 20, 2024 07:46 AM Outpatient Encounter ADMIN PAT ACTIVTIES (MASNONCT) E Encounter Template Text not used by [place] Plan of Treatment: Future Appointments (+ 6 months) and Future Tests (+/- 45 days) The Plan of Treatment section includes future care activities for the patient from all [place] treatmentfacilities. This section includes future appointments and future orders which are active, pending or scheduled. Future Appointments This section includes appointments that were scheduled to occur 6 months from the date of the Encounter, up to a maximum of 20 appointments. The data comes from all [place] treatment facilities. Appointment Date/Time Appointment Type Appointme nt Facility Name Oct 09, 2024 09:30 AM AMBULATORY - PSYCHIATRY [facility] Nov 27, 2024 09:30 AM AMBULATORY - PS[facility]CHIATRY [facility] Dec 11, 2024 09:30 AM AMBUL[facility]ORY - [facility]IATRY [facility] Jan 08, 2025 09:30 AM AMBULATORY - PSYCHIATRY [facility] Feb 22, 2025 09:30 AM AMBULATORY - PSYCHIATRY [facility] March 18, 2025 09:30 AM AMBULATORY - PSYCHIATRY [facility] Encounter Notes: All associated encounter notes This section contains the clinical notes associated to the Encounter. Date/Time Encounter Note(s) Provider Source Sep 20, 2024 07:46 AM ADMINISTRATIVE NOT E: LOCAL TITLE: CLERICAL/ADMIN NOTE STANDARD TITLE: ADMINISTRATIVE NOTE DATE OF NOTE: SEP 20, 2024@07:46 ENTRY DATE: SEP 20, 2024@07:46:11 AUTHOR: CLAUDIO SAVAGE EXP COSIGNER: URGENCY: STATUS: COMPLETED called to reshceduled speech appt 10-12-24@9, letter mailed /guilherme/ CLAUDIO SAVAGE FRAME HAND Signed: 09/20/2024 07:46 [address]
--- OUTSIDE RECORDS SUMMARY | 2025-03-13 09:23 | XMS_ITS | Encounter Summary ---
Author Name [facility] [place] Address [address] [place] [address] Care Team Providers Care Automotive Service Advisor Name Role Phone JAHAIRA NIETO Primary Care [...] Ritter's Name Patient's Relationship to Policy Ritter [facility] 2024 [facility] Nov 07, 2024 [facility] [id number] VITO MUSTAFA PATIENT Selected Encounter This section includes the information on record at [place] for the Encounter. Date/Time Encounter Type Encounter Description Reason Provider Source Aug 21, 2024 09:30 AM PSYTX W PT 60 MINUTES [facility] - IND ICD-10-CM F43.9 Reaction to severe stress, unspecified SANFORD GARZA Radha Encounter Template Text not used by [place] Assessments - Encounter Diagnoses This section includes the primary and secondary diagnoses documented for the Encounter. Date/Time Primary/Secondary Diagnosis Diagnosis Name Provider Source Sep 12, 2024 09:20 AM PRIMARY Reaction to severe stress, unspecified [facility] Sep 12, 2024 09:20 AM SECONDARY Generalized anxiety disorder [facility] Plan of Treatment: Future Appointments (+ 6 months) and Future Tests (+/- 45 days) The Plan of Treatment section includes future care activities for the patient from all [place] [facility] This section includes future appointments and future orders which are active, pending or scheduled. Future Appointments This section includes appointments that were scheduled to occur 6 months from the date of the Encounter, up to a maximum of 20 appointments. The data comes from all [place] treatment facilities. Appointment Date/Time Appointment Type Appointme nt Facility Name Aug 30, 2024 09:30 AM AMBULATORY - REHAB MEDICIN E [facility] Sep 04, 2024 09:30 AM AMBULATORY - PSYCHIATRY [facility] Sep 18, 2024 09:30 AM AMBULATORY - PSYCHIATRY [facility] Oct 09, 2024 09:30 AM AMBULATORY - PSYCHIATRY [facility] Nov 27, 2024 09:30 AM AMBULATORY - PSYCHIATRY [facility] Dec 11, 2024 09:30 AM AMBULATORY - PSYCHIATRY [facility] Jan 08, 2025 09:30 AM AMBULATORY - PSYCHIATRY [facility] Social History: Smoking Status (Most current) and Tobacco Use (All prior to encounter date) This section includes the most current, and the historical, smoking and tobacco- related health factors from the [place] facility where the Encounter took place. Current Smoking Status This section includes the most current smoking, or tobacco-related health factor, from the [place] facility where the Encounter took place. Date/Time Current Smoking Status Comment Facil ity Jan 19, 2024 09:30 AM VA-TOBACCO FORMER USER [facility] Tobacco Use History This section includes a history of the smoking, or tobacco-related health factors, that were collected on or before the date of the Encounter. The data comes from the [place] facility where the Encounter took place. Date/Time Smoking Status/Tobacco Use Comment F acility Jan 19, 2024 09:30 AM [place]-TOBACCO QUIT 15 YRS OR MORE [facility] Encounter Notes: All associated encounter notes This section contains the clinical notes associated to the Encounter. Date/Time Encounter Note(s) Provider Source Aug 21, 2024 12:01 PM MENTAL HEALTH NOTE : LOCAL TITLE: [facility] PSYCHOTHERAPY NOTE STANDARD TITLE: MENTAL HEALTH NOTE DATE OF NOTE: AUG 21, 2024@12:01 ENTRY DATE: AUG 21, 2024@12:01:20 AUTHOR: SANFORD GARZA COSIGNER: URGENCY: STATUS: COMPLETED Date of Session: AUG 21, 2024 Duration of Session: 60 minutes Session Number: 2 Diagnosis Addressed During Session: Reaction to severe [...] engage in treatment planning: intact C-SSRS Screening [place]-Suicide Severity Rating Scale (C-SSRS Screener) 1. Over [...] Assessment Data: Whole Health Interventions Session Content: [place] reported an increase in anxiety and stress related to work. She shared the frustration she is experiencing trying to do her job and help those who depend her without the necessary resources. This provider offered validation and support. Discussed how she has been perceived by others when she expresses her thoughts annd feelings about what she see. Also discussed the impact on her with the losses she has experienced. Processed the different ways individuals react to situations and how this does not diminish nor invalidate their experiences. Therapeutic Intervention: empathic listening, psychoeducation, support and validation Patient Response to Treatment: open and engaged, receptive to feedback, insightful Progress Towards Treatment Goal: limited progress Plan and Scheduling Instructions: 09/04@9:30am Pain management, if needed, is managed by primary care. Reason for Ordering Tests, Consults or Changes in Medications: /guilherme/ NITZA Nelson, CHART CLERK LICENSED CLINICAL TROLLEY CAR OVERHAULER Signed: 08/21/2024 13:29 SANFORD GARZA [facility]
--- OUTSIDE RECORDS SUMMARY | 2025-03-13 09:23 | XMS_ITS | Encounter Summary ---
Author Name [facility] [place] Address [address] [place] [address] Care Team Providers Care Housekeeping/Laundry Name Role Phone JAHAIRA NIETO Primary Care [...] Ritter's Name Patient's Relationship to Policy Ritter [facility] 2024 [facility] Nov 07, 2024 [facility] [id number] VITO MUSTAFA PATIENT Selected Encounter This section includes the information on record at [place] for the Encounter. Date/Time Encounter Type Encounter Description Reason Provider Source Dec 11, 2024 09:30 AM PSYTX W PT 60 MINUTES [facility] - IND ICD-10-CM F43.9 Reaction to severe stress, unspecified SANFORD GARZA Encounter Template Text not used by [place] Assessments - Encounter Diagnoses This section includes the primary and secondary diagnoses documented for the Encounter. Date/Time Primary/Secondary Diagnosis Diagnosis Name Provider Source Dec 11, 2024 04:24 PM PRIMARY Reaction to severe stress, unspecified [facility] Dec 11, 2024 04:24 PM SECONDARY Generalized anxiety disorder [facility]AR[facility] Plan of Treatment: Future Appointments (+ 6 months) and Future Tests (+/- 45 days) The Plan of Treatment section includes future care activities for the patient from all [place] [facility]. This section includes future appointments and future orders which are active, pending or scheduled. Future Appointments This section includes appointments that were scheduled to occur 6 months from the date of the Encounter, up to a maximum of 20 appointments. The data comes from all [place] treatment [facility]. Appointment Date/Time Appointment Type Appointme nt Facility Name Jan 08, 2025 09:30 AM AMBULATORY - PSYCHIATRY [facility] Feb 22, 2025 09:30 AM AMBULATORY - PSYCHIATRY [facility] March 18, 2025 09:30 AM AMBULATORY - PSYCHIATRY [facility] Social History: Smoking Status (Most current) and Tobacco Use (All prior to encounter date) This section includes the most current, and the historical, smoking and tobacco- related health factors from the [facility] where the Encounter took place. Current Smoking Status This section includes the most current smoking, or tobacco-related health factor, from the [place] facility where the Encounter took place. Date/Time Current Smoking Status Comment Samy reaiesha Jan 19, 2024 09:30 AM VA-TOBACCO FORMER USER [facility] Tobacco Use History This section includes a history of the smoking, or tobacco-related health factors, that were collected on or before the date of the Encounter. The data comes from the [place] facility where the Encounter took place. Date/Time Smoking Status/Tobacco Use Comment F accharu Jan 19, 2024 09:30 AM VA-TOBACCO QUIT 15 YRS OR MORE [facility] Encounter Notes: All associated encounter notes This section contains the clinical notes associated to the Encounter. Date/Time Encounter Note(s) Provider Source Dec 11, 2024 01:56 PM MENTAL HEALTH NOTE : LOCAL TITLE: [facility] PSYCHOTHERAPY NOTE STANDARD TITLE: MENTAL HEALTH NOTE DATE OF NOTE: DEC 11, 2024@13:56 ENTRY DATE: DEC 11, 2024@13:56:38 AUTHOR: SANFORD GARZA COSIGNER: URGENCY: STATUS: COMPLETED Date of Session: DEC 11, 2024 Duration of Session: 60 minutes Session Number: 5 Diagnosis Addressed During Session: Reaction to severe stress,unspecified; JERAMIE Session Format: Face to face Reason for Session: anxiety, family dynamics Rationale for Duration of Session: Individual therapy What matters most to you in your life right now? simplifying my life Mental Status: Appearance: Appropriately dressed and well groomed, not in acute distress Orientation/Alertness: Oriented to person, place, and time Attitude: Cooperative Behavior: Calm Speech: Normal in tone, rate, volume and amount Mood: Anxious, pleasant Affect: Congruent to mood Thought Process: Linear, Goal directed Thought Content: Appropriate to mood and circumstances Hallucinations: denies Suicidal ideation: denies Memory: Normal Attention/Concentration: wnl Insight: Shows awareness of self and problems Judgment: Normal Capacity to make treatment decisions and engage in treatment planning: intact C-SSRS Screening [place]-Suicide Severity Rating Scale (C-SSRS Screener) 1. Over [...] Assessment Data: Whole Health Interventions Session Content: Mary expressed feeling at her breaking point. She reported there is a lot going within her family. I love my children but I wonder what is going on with them. This provider offered support and validated her love for her children while also validated the need to care for herself. reported wanting to spend time with her children but doing it on her own time. Encouraged telling them this and as adults they need to respect her choice even if they do not like it. Therapeutic Intervention: empathic listening, validation, supportive therapy Patient Response to Treatment: actively engaged, self-aware, receptive to feedback provided Progress Towards Treatment Goal: motivation for treatment Plan and Scheduling Instructions: 12/25@9:30am Pain management, if needed, is managed by primary care. Reason for Ordering Tests, Consults or Changes in Medications: /guilherme/ NITZA Nelson, DENISE LICENSED CLINICAL PIPE BENDER Signed: 12/11/2024 16:24 SANFORD GARZA [facility]
--- OUTSIDE RECORDS SUMMARY | 2025-03-13 09:23 | XMS_ITS ---
Author Name [place] Address [address] [place] [address] Care Team Providers Care Remote Sensing Analyst Name Role Phone JAHAIRA NIETO Primary Care [...] Ritter's Name Patient's Relationship to Policy Ritter [facility] 2024 [facility] Nov 07, 2024 [facility] [id number] VITO MUSTAFA PATIENT Selected Encounter This section includes the information on record at [place] for the Encounter. Date/Time Encounter Type Encounter Description Reason Pro vider Source Nov 19, 2024 09:18 AM Outpatient Encounter ADMIN PAT ACTIVTIES (MASNONCT) IHE Encounter Template Text not used by [place] Plan of Treatment: Future Appointments (+ 6 months) and Future Tests (+/- 45 days) The Plan of Treatment section includes future care activities for the patient from all [place] treatmentfacilities. This section includes future appointments and future orders which are active, pending or scheduled. Future Appointments This section includes appointments that were scheduled to occur 6 months from the date of the Encounter, up to a maximum of 20 appointments. The data comes from all [place] treatment facilities. Appointment Date/Time Appointment Type Appointme nt Facility Name Nov 27, 2024 09:30 AM AMBULATORY - PSYCHIATRY [facility] Dec 11, 2024 09:30 AM AMBULATORY - [facility]IATRY [facility] Jan 08, 2025 09:30 AM AMBULATORY - PSYCHIATRY [facility] Feb 22, 2025 09:30 AM AMBULATORY - PS[facility]CHIATRY [facility] March 18, 2025 09:30 AM AMBULATORY - PSYCHIATRY [facility] Encounter Notes: All associated encounter notes This section contains the clinical notes associated to the Encounter. Date/Time Encounter Note(s) Provider Source Nov 19, 2024 09:18 AM LETTERS: LOCAL TITLE: SPECIALTY CONTACT LETTER STANDARD TITLE: LETTERS DATE OF NOTE: NOV 19, 2024@09:18 ENTRY DATE: NOV 19, 2024@09:18:35 AUTHOR: MONICA BRUNSON COSIGNER: URGENCY: STATUS: COMPLETED [facility] [address] [place] [address] . NICOL MUSTAFA [address] [place] [address] NOV 19, 2024 Dear NICOL MUSTAFA, We have been unable to contact you by telephone to schedule an appointment in our Speech clinic. Your health and well-being are important to us. Please call us at or . Select Option #2 and then #3. We look forward to hearing from you soon. Sincerely yours, Speech [facility]
--- OUTSIDE RECORDS SUMMARY | 2025-03-13 09:23 | XMS_ITS | Encounter Summary ---
Author Name [place] Address [address] [place] [address] Care Team Providers Care Clay Carman Name Role Phone JAHAIRA NIETO Primary Care [...] Ritter's Name Patient's Relationship to Policy Ritter [facility] 2024 [facility] Nov 07, 2024 [facility] [id number] VITO MUSTAFA PATIENT Selected Encounter This section includes the information on record at [place] for the Encounter. Date/Time Encounter Type Encounter Description Reason Provider Source Feb 22, 2025 09:30 AM PSYTX W PT 30 MINUTES [facility] - IND ICD-10-CM F43.9 Reaction to severe stress, unspecified SANFORD GARZA Radha Encounter Template Text not used by [place] Assessments - Encounter Diagnoses This section includes the primary and secondary diagnoses documented for the Encounter. Date/Time Primary/Secondary Diagnosis Diagnosis Name Provider Source Feb 22, 2025 02:43 PM PRIMARY Reaction to severe stress, unspecified [facility] Feb 22, 2025 02:43 PM SECONDARY Generalized anxiety disorder [facility]FORD GARZA [facility] Plan of Treatment: Future Appointments (+ 6 months) and Future Tests (+/- 45 days) The Plan of Treatment section includes future care activities for the patient from all [place] [facility]. This section includes future appointments and future orders which are active, pending or scheduled. Future Appointments This section includes appointments that were scheduled to occur 6 months from the date of the Encounter, up to a maximum of 20 appointments. The data comes from all [place] treatment facilities. Appointment Date/Time Appointment Type Appointme nt Facility Name March 18, 2025 09:30 AM AMBULATORY - PSYCHIATRY [facility] Social History: Smoking Status (Most current) and Tobacco Use (All prior to encounter date) This section includes the most current, and the historical, smoking and tobacco- related health factors from the [place] facility where the Encounter took place. Current Smoking Status This section includes the most current smoking, or tobacco-related health factor, from the [place] facility where the Encounter took place. Date/Time Current Smoking Status Comment Facil ity Jan 19, 2024 09:30 AM [place]-TOBACCO FORMER USER [facility] Tobacco Use History This section includes a history of the smoking, or tobacco-related health factors, that were collected on or before the date of the Encounter. The data comes from the [place] facility where the Encounter took place. Date/Time Smoking Status/Tobacco Use Comment F acility Jan 19, 2024 09:30 AM [place]-TOBACCO QUIT 15 YRS OR MORE [facility] Encounter Notes: All associated encounter notes This section contains the clinical notes associated to the Encounter. Date/Time Encounter Note(s) Provider Source Feb 22, 2025 01:59 PM MENTAL HEALTH NOTE : LOCAL TITLE: [facility] PSYCHOTHERAPY NOTE STANDARD TITLE: MENTAL HEALTH NOTE DATE OF NOTE: FEB 22, 2025@13:59 ENTRY DATE: FEB 22, 2025@13:59:55 AUTHOR: SANFORD GARZA COSIGNER: URGENCY: STATUS: COMPLETED Date of Session: FEB 22, 2025 Duration of Session: 60 minutes Session Number: 7 Diagnosis Addressed During Session: Reaction to severe [...] engage in treatment planning: intact C-SSRS Screening [place]-Suicide Severity Rating Scale (C-SSRS Screener) 1. Over [...] Assessment Data: Whole Health Interventions Session Content: stated she is at the point of just wanting to disengage from everyone and everything. She is in the process of selling her house but has experienced several weather related issues. At this point I'm selling as is. This provider acknowledged and validated her feelings. Explored if there has been any changes in functioning (sleep disruptions, interpersonal issues, etc.). She did identify not sleeping well and being short tempered. Discussed prioritizing and eliminating if necessary things that did not require immediate attention. Encouraged setting aside time specifically for self-care. Therapeutic Intervention: reflective listening, empathic clarification, psychoeducation Patient Response to Treatment: actively engaged, insighful and self-aware, open and receptive of feedback Progress Towards Treatment Goal: positive progress Plan and Scheduling Instructions: 03/18@9:30am Pain management, if needed, is managed by primary care. Reason for Ordering Tests, Consults or Changes in Medications: /guilherme/ NITZA Nelson, DOCUMENTATION SUPERVISOR LICENSED CLINICAL RAILROAD SUPERVISOR OF ENGINES Signed: 02/22/2025 14:[address] [facility]
--- OUTSIDE RECORDS SUMMARY | 2025-03-13 09:24 | XMS_ITS | Encounter Summary ---
Author Name [facility] [facility] [place] Address [address] [place] [address] Care Team Providers Care Online Project Manager Name Role Phone JAHAIRA NIETO Primary Care [...] Ritter's Name Patient's Relationship to Policy Ritter [facility] 2024 [facility] Nov 07, 2024 [facility] [id number] VITO [place]AFA PATIENT Selected Encounter This section includes the information on record at [place] for the Encounter. Date/Time Encounter Type Encounter Description Reason Provider Source Apr 18, 2024 09:30 AM PSYTX W PT 30 MINUTES PCMHI INDIV ICD-10-CM F43.20 Adjustment disorder, unspecified TRI SAVAGE Radha Encounter Template Text not used by [place] Assessments - Encounter Diagnoses This section includes the primary and secondary diagnoses documented for the Encounter. Date/Time Primary/Secondary Diagnosis Diagnosis Name Provider Source Apr 24, 2024 11:36 AM PRIMARY Adjustment disorder, unspecified TRI SAVAGE [facility] Plan of Treatment: Future Appointments (+ 6 months) and Future Tests (+/- 45 days) The Plan of Treatment section includes future care activities for the patient from all [place] treatmentfacilities. This section includes future appointments and future orders which are active, pending or scheduled. Future Appointments This section includes appointments that were scheduled to occur 6 months from the date of the Encounter, up to a maximum of 20 appointments. The data comes from all [place] treatment facilities. Appointment Date/Time Appointment Type Appointme nt Facility Name May 31, 2024 09:30 AM [facility] Jun 07, 2024 09:30 AM [facility]ATRY [facility] Jul 02, 2024 02:00 PM AMBULATORY - PS[facility]CHIATRY [facility] Aug 01, 2024 09:00 AM AMBULATORY - REHAB MEDICIN E [facility] Aug 07, 2024 10:30 AM AMBULATORY - PS[facility]CHIATRY [facility] Aug 21, 2024 09:30 AM AMBULATORY - PS[facility]CHIATRY [facility] Aug 30, 2024 09:30 AM AMBULATORY - REHAB MEDICIN E [facility] Sep 04, 2024 09:30 AM AMBULATORY - PS[facility]CHIATRY [facility] Sep 18, 2024 09:30 AM AMBULATORY - PS[facility]CHIATRY [facility] Oct 09, 2024 09:30 AM AMBULATORY - PSYCHIATRY [facility] Social History: Smoking Status (Most current) and Tobacco Use (All prior to encounter date) This section includes the most current, and the historical, smoking and tobacco- related health factors from the [place] facility where the Encounter took place. Current Smoking Status This section includes the most current smoking, or tobacco-related health factor, from the [place] facility where the Encounter took place. Date/Time Current Smoking Status Comment Samy brandt Jan 19, 2024 09:30 AM VA-TOBACCO FORMER USER [facility] Tobacco Use History This section includes a history of the smoking, or tobacco-related health factors, that were collected on or before the date of the Encounter. The data comes from the [place] facility where the Encounter took place. Date/Time Smoking Status/Tobacco Use Comment F accharu Jan 19, 2024 09:30 AM VA-TOBACCO QUIT 15 YRS OR MORE [facility] Encounter Notes: All associated encounter notes This section contains the clinical notes associated to the Encounter. Date/Time Encounter Note(s) Provider Source Apr 18, 2024 03:08 PM MENTAL HEALTH NOTE : LOCAL TITLE: [facility] BRIEF THERAPY NOTE STANDARD TITLE: MENTAL HEALTH NOTE DATE OF NOTE: APR 18, 2024@15:08 ENTRY DATE: APR 18, 2024@15:08:46 AUTHOR: TRI SAVAGE COSIGNER: URGENCY: STATUS: COMPLETED [facility] Brief Therapy Session #5 Session Date and Time: 04/18/24 at 9:30am Session Length: 30 minutes Session Type: F2F Diagnosis: Adjustment Disorder, unspecified Review of Presenting Problem continuing to attend brief therapy treatment in [facility] in order to address transitional stressors. This is session 5 of 6 of this episode of care. Risk Assessment (e.g., lethality, suicidality/homicidality): C-SSRS Screening [place]-Suicide Severity Rating Scale (C-SSRS Screener) 1. Over [...] required due to responses to other questions. [place] reports no current homicidal ideation. Brief Mental Status Exam (as applicable) Appearance and Behavior: casual dress, normal grooming, and hygiene Mood/Affect: sad; tearful affect Sensorium (orientation, memory, concentration): Ox3 [...] Trans Scale 01/19/2024 09:30 AUDC 1 Total No measurement-based care instrument was administered today; recent measures were reviewed with [place]. Pain Measure reported pain to be a significant concern to address today and reports the following pain levels related to hip Homework Review Discussed with progress on interventions agreed upon at last appointment. Functional Assessment/Progress Toward Goals/Session Content ------ Discussed with [place] status of presenting problem and it's impact on functioning and changes since the prior visit, including progress towards current goals. described the past 2 weeks as busy. As session progressed, Mary stated, no one protected us. Upon futher dialogue, Mary reflected on her strained work environment. Mary noted that due to her stance on various government decisions during the Covid-19 pandemic she was labeled as a nut. She also noted that witnessing the of her from Covid-19 continues to negatively impact her functioning across multiple domains. As such, [place] noted that she believes her current behavioral and emotional symptoms are a manifestation of undiagnosed PTSD. Provider offered provided psycho-education about prolonged grief (intrusive thoughts related to cicumstances of ; sense of longing) vs. PTSD (intrusive thoughts related to traumatic event; sense of fear and powerlessness). voiced understanding, but requested further evaluation within [facility] clinic. Intervention: Psychoeducation Supportive Psychotherapy/Reflection/Va lidation Treatment Plan and Follow-up - Patient Goals: Increase Enjoyable/Meaningful Activities Homework/Handouts: n/a Plans for Follow-up: Facilitation of care planning/establish appointment for specialty MH [place] requested consult be placed to [facility] clinic. Visit Duration: 30 minutes Patient records have been reviewed. Informed/Reviewed with [place] about MH resources in case of crisis including the [facility] Crisis Line number (press 1) and emergency room services. Outcome and recommendations will be discussed with the referring provider and other relevant PACT team members as needed. /guilherme/ TRI SAVAGE Signed: 04/24/2024 11:39 TRI SAVAGE [facility]
--- OUTSIDE RECORDS SUMMARY | 2025-03-13 09:24 | XMS_ITS ---
Author Name [facility] [place] Address [address] [place] [address] Care Team Providers Care Cut Off Saw Tender Metal Name Role Phone JAHAIRA NIETO Primary Care [...] Ritter's Name Patient's Relationship to Policy Ritter [facility] 2024 [facility] Nov 07, 2024 [facility] [id number] VITO MUSTAFA PATIENT Selected Encounter This section includes the information on record at [place] for the Encounter. Date/Time Encounter Type Encounter Description Reason Provider Source Aug 01, 2024 09:21 AM SPEECH SOUND LANG COMPREHEN POLYTRAUMA/TBI IND ICD-10-CM R41.841 Cognitive communication deficit COLE RICH IHE Encounter Template Text not used by [place] Assessments - Encounter Diagnoses This section includes the primary and secondary diagnoses documented for the Encounter. Date/Time Primary/Secondary Diagnosis Diagnosis Name Provider Source Aug 03, 2024 02:43 PM PRIMARY Cognitive communication deficit COLE RICH [facility] Plan of Treatment: Future Appointments [...] 20 appointments. The data comes from all [place] treatment facilities. Appointment Date/Time Appointment Type Appointme nt Facility Name Aug 07, 2024 10:30 AM [facility] Aug 21, 2024 09:30 AM AMBULATORY - PSYCHIATRY [facility] Aug 30, 2024 09:30 AM AMBULATORY - REHAB MEDICIN E [facility] Sep 04, 2024 09:30 AM AMBULATORY - PSYCHIATRY [facility] Sep 18, 2024 09:30 AM AMBULATORY - PSYCHIATRY [facility] Oct 09, 2024 09:30 AM AMBULATORY - PSYCHIATRY [facility] Nov 27, 2024 09:30 AM AMBULATORY - PSYCHIATRY [facility] Dec 11, 2024 09:30 AM AMBULATORY - PSYCHIATRY [facility] Jan 08, 2025 09:30 AM AMBULATORY - PSYCHIATRY [facility] Vital Signs: All taken on the encounter date This section contains inpatient and outpatient Vital Signs collected on the date of the Encounter. Date/Time Temperature Pulse Blood Pressure Respiratory Rate SP02 Pain Height Weight Body Mass Index Source Aug 01, 2024 08:39 AM 97.2 78 110/73 99 0 207 31 [facility] Social History: Smoking Status (Most current) and Tobacco Use (All prior to encounter date) This section includes the most current, and the historical, smoking and tobacco- related health factors from the [place] facility where the Encounter took place. Current Smoking Status This section includes the most current smoking, or tobacco-related health factor, from the [place] facility where the Encounter took place. Date/Time Current Smoking Status Comment Samy ity Jan 19, 2024 09:30 AM VA-TOBACCO FORMER USER [facility] Tobacco Use History This section includes a history of the smoking, or tobacco-related health factors, that were collected on or before the date of the Encounter. The data comes from the [place] facility where the Encounter took place. Date/Time Smoking Status/Tobacco Use Comment F acility Jan 19, 2024 09:30 AM VA-TOBACCO QUIT 15 YRS OR MORE [facility] Encounter Notes: All associated encounter notes This section contains the clinical notes associated to the Encounter. Date/Time Encounter Note(s) Provider Source Aug 01, 2024 09:21 AM POLYTRAUMA CONSULT : LOCAL TITLE: TBI/POLYTRAUMA CONSULT RESPONSE STANDARD TITLE: POLYTRAUMA CONSULT DATE OF NOTE: AUG 01, 2024@09:21 ENTRY DATE: AUG 01, 2024@09:21:09 AUTHOR: COLE RICH COSIGNER: URGENCY: STATUS: COMPLETED S: [place] with remote history of TBI, multiple recent surgeries, and Persistent Postural Perceptual Dizziness (PPPD) was seen in the Polytrauma/TBI clinic for this initial speech evaluation. O: Clinician provided evaluation and interview to determine areas and degree of impairment, establish treatment goals, and derive an individualized treatment plan. Clinician utilized the Fredy Cognitive Assessment (MOCA) and motivational interview. *Fredy Cognitive Assessment Visuospatial/Executive: 4/5 Namin/3 Attention: 6/6 Language: 3/3 Abstraction: 2/2 Delayed Recall: 2/5 Orientation: /6 Total: 26/30 (Normal > 26/30) A: Colin attained a score of 26/30 on the MOCA, indicating little concern for mild cognitive impairment. When completing tasks assessing visuospatial skills, colin was able to complete an alternating trail- making task but was unable to copy a depicted three-dimensional object. She accurately roseanna a clock face indicating a designated time. He was able to name three depicted animals. When completing tasks assessing attention, colin was able to accurately repeat a verbally provided string of digits and mentally manipulate three digits. She was able to accurately complete 5/5 operations of serial subtraction. She completed 2/3 tasks assessing language processing and accurately completed two abstract thinking tasks. Colin recalled 2 items on a delayed recall task and was fully oriented to person, place, and time. Colin reported that she often loses a word in the middle of a conversation and cannot recall the names of simple things around the house. She stated that she has to describe things in great detail in order for her children to understand what she is talking about. When asked about losing the words, she stated that it is not on the tip of her tongue , rather it just disappears. Colin stated that she also loses track of the conversation she is having if interrupted. In regard to memory, stated she has a hard time recalling important dates and times. expressed that she remembers her childhood but cannot recall things from two years ago. When asked about strategies, reported she currently utilizes a digital calendar on her phone and writes important information down. [place] expressed that due to these concerns, she has requested to retire. Clinician recommended speech therapy services targeting language processing and memory deficits, and endorsed this recommendation. P: will RTC F2F as scheduled. /es/ COLE RICH SPEECH PATHOLOGIST Signed: 08/03/2024 14:43 COLE RICH [facility]
--- OUTSIDE RECORDS SUMMARY | 2025-03-13 09:24 | XMS_ITS | Encounter Summary ---
Author Name [facility] [place] Address [address] [place] [address] Care Team Providers Care Welder Boilermaker Name Role Phone JAHAIRA NIETO Primary Care [...] Ritter's Name Patient's Relationship to Policy Ritter [facility] 2024 [facility] [id number] VITO MUSTAFA PATIENT Selected Encounter This section includes the information on record at [place] for the Encounter. Date/Time Encounter Type Encounter Description Reason Pro vider Source Dec 28, 2024 10:43 AM Outpatient Encounter ADMIN PAT ACTIVTIES (MASNONCT) IHE Encounter Template Text not used by [place] Plan of Treatment: Future Appointments (+ 6 months) and Future Tests (+/- 45 days) The Plan of Treatment section includes future care activities for the patient from all [place] treatmentfacilities. This section includes future appointments and future orders which are active, pending or scheduled. Future Appointments This section includes appointments that were scheduled to occur 6 months from the date of the Encounter, up to a maximum of 20 appointments. The data comes from all [place] treatment facilities. Appointment Date/Time Appointment Type Appointme nt Facility Name Jan 08, 2025 09:30 AM AMBULATORY - PSYCHIATRY [facility] Feb 22, 2025 09:30 AM AMBULATORY - [facility]IATRY [facility] March 18, 2025 09:30 AM AMBULATORY - PSYCHIATRY [facility] Encounter Notes: All associated encounter notes This section contains the clinical notes associated to the Encounter. Date/Time Encounter Note(s) Provider Source Dec 28, 2024 10:43 AM PRIMARY CARE LETTE RS: LOCAL TITLE: PC LETTER FOLLOW UP/PAST RECALL/INACTIVE STANDARD TITLE: PRIMARY CARE LETTERS DATE OF NOTE: DEC 28, 2024@10:43 ENTRY DATE: DEC 28, 2024@10:43:59 AUTHOR: ANUPAM GUNDERSON EXP COSIGNER: URGENCY: STATUS: COMPLETED [address] [id number] [id number] Lydia MUSTAFA [address] [place] [address] DEC 28, 2024 Dear Ms. NICOL MUSTAFA, Our Records indicate you are past due for an appointment in primary care. We value you as a patient, and are concerned about your overall health. Patients are encouraged to see their Primary Care Provider annually to maintain their health care needs. If you would like to be seen and maintain enrollment in Primary Care, please contact our Telephone Care Program at or local [phone] to schedule an appointment. If you do not wish to be seen, please call the same number listed above, and let us know. We look forward to hearing from you soon. Sincerely, /guilherme/ ANUPAM GUNDERSON Advanced Health Informatics Instructor Patient Record Number [id number] ANUPAM GUNDERSON-CDD [facility]
--- OUTSIDE RECORDS SUMMARY | 2025-03-13 09:24 | XMS_ITS | Encounter Summary ---
Author Name [place] Address [address] [place] [address] Care Team Providers Care Precision Aircraft Structure Assembler Name Role Phone JAHAIRA NIETO Primary Care [...] Ritter's Name Patient's Relationship to Policy Ritter [facility] 2024 [facility] Nov 07, 2024 [facility] [id number] VITO MUSTAFA PATIENT Selected Encounter This section includes the information on record at [place] for the Encounter. Date/Time Encounter Type Encounter Description Reason Provider Source Aug 30, 2024 09:30 AM SPEECH/HEARING THERAPY POLYTRAUMA/TBI IND ICD-10-CM R41.841 Cognitive communication deficit COLE RICH I[facility] Encounter Template Text not used by [place] Assessments - Encounter Diagnoses This section includes the primary and secondary diagnoses documented for the Encounter. Date/Time Primary/Secondary Diagnosis Diagnosis Name Provider Source Sep 04, 2024 02:55 PM PRIMARY Cognitive communication deficit COLE RICH [facility] Plan of Treatment: Future Appointments (+ 6 [...] 20 appointments. The data comes from all [place] treatment facilities. Appointment Date/Time Appointment Type Appointme nt Facility Name Sep 04, 2024 09:30 AM AMBULATORY - PSYCHIATRY [facility] Sep 18, 2024 09:30 AM AMBULATORY - PSYCHIATRY [facility] Oct 09, 2024 09:30 AM AMBULATORY - PSYCHIATRY [facility] Nov 27, 2024 09:30 AM AMBULATORY - PSYCHIATRY [facility] Dec 11, 2024 09:30 AM AMBULATORY - PSYCHIATRY [facility] Jan 08, 2025 09:30 AM AMBULATORY - PSYCHIATRY [facility] Feb 22, 2025 09:30 AM AMBULATORY - PSYCHIATRY [facility] Social History: Smoking Status (Most current) and Tobacco Use (All prior to encounter date) This section includes the most current, and the historical, smoking and tobacco- related health factors from the [place] facility where the Encounter took place. Current Smoking Status This section includes the most current smoking, or tobacco-related health factor, from the [place] facility where the Encounter took place. Date/Time Current Smoking Status Comment Samy brandt Jan 19, 2024 09:30 AM VA-TOBACCO FORMER USER [facility] Tobacco Use History This section includes a history of the smoking, or tobacco-related health factors, that were collected on or before the date of the Encounter. The data comes from the [place] facility where the Encounter took place. Date/Time Smoking Status/Tobacco Use Comment F acility Jan 19, 2024 09:30 AM VA-TOBACCO QUIT 15 YRS OR MORE [facility] Encounter Notes: All associated encounter notes This section contains the clinical notes associated to the Encounter. Date/Time Encounter Note(s) Provider Source Aug 30, 2024 02:43 PM POLYTRAUMA NOTE: LOCAL TITLE: TBI/POLYTRAUMA FOLLOW UP NOTE STANDARD TITLE: POLYTRAUMA NOTE DATE OF NOTE: AUG 30, 2024@14:43 ENTRY DATE: AUG 30, 2024@14:44:02 AUTHOR: COLE RICH COSIGNER: URGENCY: STATUS: COMPLETED S: [place] with remote history of TBI, multiple recent surgeries, and persistent postural perceptual dizziness (PPPD) was seen in the speech clinic for this follow up speech treatment session. O: Clinician provided evaluation and interview to determine areas and degree of impairment, establish treatment goals, and derive an individualized treatment plan. Clinician utilized motivational interviewing and provided instruction from the What I Mean Is..? Program. Clinician administered the Kailyn Battery for Cognitive Communication Disorders Second Edition (ABCD-2) and the report will follow. What I Mean Is..? Category: 3/3 trials Distinctive Feature: 3/3 trials A: Mary was pleasant and provided meaningful treatment information throughout the session. Mary reported her concerns related to memory and word-finding deficits. She stated that she has recently experienced initiating conversations she already knows she will not be able to recall specific words. When cooking with her daughter, she often forgets the names of important ingredients she uses frequently. She stated she will use gestures during conversations to help her listener determine what she is trying to say. Mary reported that her words are slowly starting to slip away. and clinician discussed possible goals related to cognitive communication deficits, and she reported needing more time to think. agreed with the clinician, wanting to feel less anxiety from these episodes she frequently experiences. Mary reported that she prefers hard copies of materials to use within the sessions and at home. P: Mary will RTC on 09/10 at 0930. /guilherme/ COLE RICH SPEECH PATHOLOGIST Signed: 09/04/2024 14:55 COLE RICH [facility]
--- OUTSIDE RECORDS SUMMARY | 2025-03-13 09:24 | XMS_ITS | Encounter Summary ---
Author Name [facility] [place] [facility] [place] [facility] [place] Address [address] [place] [address] Care Team Providers Care Chronic Manager Name Role Phone JAHAIRA NIETO Primary [...] Ritter's Name Patient's Relationship to Policy Ritter [facility] 2024 [facility] Nov 07, 2024 [facility] [id number] VITO MUSTAFA PATIENT Selected Encounter This section includes the information on record at [place] for the Encounter. Date/Time Encounter Type Encounter Description Reason Provider Source March 21, 2024 09:30 AM PSYTX W PT 30 MINUTES PCM[facility] INDIV ICD-10-CM F43.20 Adjustment disorder, unspecified DANIELLE SAVAGE Radha Encounter Template Text not used by [place] Assessments - Encounter Diagnoses This section includes the primary and secondary diagnoses documented for the Encounter. Date/Time Primary/Secondary Diagnosis Diagnosis Name Provider Source March 21, 2024 03:39 PM PRIMARY Adjustment disorder, unspecified DANIELLE SAVAGE [facility] Plan of Treatment: Future Appointments (+ 6 months) and Future Tests (+/- 45 days) The Plan of Treatment section includes future care activities for the patient from all [place] treatmentfacilities. This section includes future appointments and future orders which are active, pending or scheduled. Future Appointments This section includes appointments that were scheduled to occur 6 months from the date of the Encounter, up to a maximum of 20 appointments. The data comes from all [place] treatment facilities. Appointment Date/Time Appointment Type Appointme nt Facility Name April 04, 2024 09:30 AM AMBULATORY - PSYCHIATRY [facility] Apr 18, 2024 09:30 AM AMBULATORY - PS[facility]CHIATRY [facility] May 31, 2024 09:30 AM AMBULATORY - PSYCHIATRY [facility] Jun 07, 2024 09:30 AM AMBULATORY - PSYCHIATRY [facility] Jul 02, 2024 02:00 PM AMBULATORY - PSYCHIATRY [facility] Aug 01, 2024 09:00 AM AMBULATORY - REHAB MEDICIN E [facility] Aug 07, 2024 10:30 AM AMBULATORY - PSYCHIATRY [facility] Aug 21, 2024 09:30 AM AMBULATORY - PSYCHIATRY [facility] Aug 30, 2024 09:30 AM AMBULATORY - REHAB MEDICIN E [facility] Sep 04, 2024 09:30 AM AMBULATORY - PSYCHIATRY [facility] Sep 18, 2024 09:30 AM AMBULATORY - PSYCHIATRY [facility] Social History: Smoking Status (Most current) and Tobacco Use (All prior to encounter date) This section includes the most current, and the historical, smoking and tobacco- related health factors from the [place] facility where the Encounter took place. Current Smoking Status This section includes the most current smoking, or tobacco-related health factor, from the [place] facility where the Encounter took place. Date/Time Current Smoking Status Comment Facil ity Jan 19, 2024 09:30 AM VA-TOBACCO FORMER USER [facility] Tobacco Use History This section includes a history of the smoking, or tobacco-related health factors, that were collected on or before the date of the Encounter. The data comes from the [place] facility where the Encounter took place. Date/Time Smoking Status/Tobacco Use Comment F acility Jan 19, 2024 09:30 AM VA-TOBACCO QUIT 15 YRS OR MORE [facility] Radiology Reports: +/- 30 days of the encounter Radiology Reports For cases when an order for radiology services may have been completed prior to the date of the Encounter, the report list includes the Radiology Reports that were completed up to 30 days before dateof the Encounter. For cases when an order for radiology services may have been completed after the date of the Encounter, the report list also includes the Radiology Reports that were completed up to30 days after date of the Encounter. The data comes from all [place] treatment facilities. Date/Time Radiology Report Provider Source Feb 28, 2024 12:00 PM MAMMOGRAPHY,SCREEN ING,BILATERAL,W/C AD IF NEEDED: NICOL MUSTAFA [id number] [id number] F Exm Date: FEB 28, 2024@12:00 Req Phys: JAHAIRA NIETO Loc: [facility] PACT DELTA 1-2 (Req'g Loc) Img Loc: MAMMOGRAPHY Service: Unknown Screen: Patient is unable to answer or is unsure Screen Comment: OUTSIDE STUDY (Case [id number] COMPLETE) MAMMOGRAPHY,SCREENING,BILATERAL,W(M AM Detailed) CPT:51012 Proc Modifiers : BILATERAL EXAM Reason for Study: DUE FOR ANNUAL MAMMO Clinical History: While this referral is under a screening mammogram, it is expected that when the [place] presents with symptoms on the day of exam, or this screening mammogram has an abnormal finding (BiRAD 3, 4, 5 and/or ICD-10-CM Diagnostic Code R92.8 (Other abnormal and inconclusive findings on diagnostic imaging of breast)) or this screening mammogram is inconclusive (BiRAD 0 and/or ICD-10-CM diagnostic code R92.2 (Inconclusive mammogram)), this referral includes the ability to continue with appropriate testing. Appropriate testing may include Diagnostic Mammography, Breast Ultrasound (limited or complete), Breast MRI, and/or Breast Biopsy. Please refer to attached Standardized Episode of Care (SEOC) for a list of the specific services approved with this referral, as clinically indicated. Once all clinically necessary breast imaging/testing is completed to allow the rendering of a final diagnosis, the is then referred [facility] the [facility] for subsequent consults for the treatment of final diagnosis (ex. surgery, oncology, radiation oncology, etc.), if applicable. Report Status: Electronically Filed Date Reported: Report: This exam was performed at an outside facility. The images and the report have NOT been reviewed or read by [place] staff. If images were available, they were uploaded into the patient's medical record for continuity of care. Associated reports for these images are available in [employer]. Impression: The Bi-RADS code has been entered below as reported on the official outside report. Primary Diagnostic Code: BI-RADS CATEGORY 1 (Negative) VERIFIED BY: / *ELECTRONICALLY FILED* [facility] Encounter Notes: All associated encounter notes This section contains the clinical notes associated to the Encounter. Date/Time Encounter Note(s) Provider Source March 21, 2024 03:46 PM ADDENDUM: LOCAL TITLE: Addendum STANDARD TITLE: ADDENDUM DATE OF NOTE: MARCH 21, 2024@15:46:42 ENTRY DATE: MARCH 21, 2024@15:46:43 AUTHOR: DANIELLE SAVAGE EXP COSIGNER: URGENCY: STATUS: COMPLETED Per [place]'s request, please schedule an appointment with Danielle Savage on 04/04/24 at 9:30am in [facility]. thanks /es/ DANIELLE SAVAGE Signed: 03/21/2024 15:47 Receipt Acknowledged By: 03/22/2024 09:27 /es/ JERRICA ESPARZA MSA --- Original Document --- 03/21/24 [facility] BRIEF [facility]: [facility] Brief Therapy Session #3 Session Date and Time: 03/21/24 at 9:30am Session Length: 30 minutes Session Type: F2F Diagnosis: Adjustment Disorder, unspecified Review of Presenting Problem continuing to attend brief therapy treatment [facility] in order to address transitional stressors. This is session 3 of 6 of this episode of care. Risk Assessment (e.g., lethality, suicidality/homicidality): C-SSRS Screening [place]-Suicide Severity Rating Scale (C-SSRS Screener) 1. Over [...] required due to responses to other questions. reports no current homicidal ideation. Brief Mental Status Exam (as applicable) Appearance and Behavior: casual dress, normal grooming, and hygiene Mood/Affect: stressed ; affect congruent Sensorium (orientation, memory, concentration): Ox3 Intellectual Functioning: WNL; no deficits noted Thought Processes/Regulation: goal-directed and logical [place] was reminded of the need to assess [...] Anxiety 02/08/2024 09:55 JERAMIE-7 4 Anxiety PCL-5: No data available for: PCL-5 AUDIT-C: Instrument Raw Trans Scale 01/19/2024 09:30 AUDC 1 Total was administered the following self-report instruments to further assess identified area of concern and the use of these intruments to assist in guiding treatment planning and assess progress was discussed with the . Pain Measure [place] reported pain to be a significant concern to address today and reports the following pain levels related to shoulder Homework Review Discussed with [place] progress on interventions agreed upon at last appointment. Functional Assessment/Progress Toward Goals/Session Content ------ Discussed with [place] status of presenting problem and it's impact on functioning and changes since the prior visit, including progress towards current goals. reported increased stress over the past 2 weeks due to transitional stressors (e.g., graduation, moving). As session progressed, reflected on changes in her mood and functioning since the Covid-19 pandemic. reported that she has been able to outwardly cope, but has been unable to fully discuss the impact of what she endured (e.g., of from Covid, lost trust ). In particular, voiced curiosity about whether her current symptoms might meet diagnostic criteria for PTSD. Provider and mutually agreed to explore this topic further in future sessions. Intervention: Psychoeducation Skill Building/Skill Practice Treatment Plan and Follow-up - Patient Goals: Increase Relaxation Skills Homework/Handouts: Other: Complete PCL-5. Plans for Follow-up: Continue [facility] with [facility] Provider Return to Clinic Follow-Up Appointment: 04/04/24 at 9:30am Visit Duration: 30 minutes Patient records have been reviewed. Informed/Reviewed with [place] about MH resources in case of crisis including the [facility] Crisis Line number (press 1) and emergency room services. Outcome and recommendations will be discussed with the referring provider and other relevant PACT team members as needed. /guilherme/ DANIELLE SAVAGE Signed: 03/21/2024 15:46 03/22/2024 ADDENDUM STATUS: UNSIGNED You may not VIEW this UNSIGNED Addendum. DANIELLE SAVAGE [facility] March 21, 2024 03:32 PM MENTAL HEALTH NOTE : LOCAL TITLE: [facility] BRIEF THERAPY NOTE STANDARD TITLE: MENTAL HEALTH NOTE DATE OF NOTE: MARCH 21, 2024@15:32 ENTRY DATE: MARCH 21, 2024@15:32:38 AUTHOR: DANIELLE SAVAGE EXP COSIGNER: URGENCY: STATUS: COMPLETED [facility] BRIEF THERAPY NOTE Has ADDENDA [facility] Brief Therapy Session #3 Session Date and Time: 03/21/24 at 9:30am Session Length: 30 minutes Session Type: F Diagnosis: Adjustment Disorder, unspecified Review of Presenting Problem continuing to attend brief therapy treatment [facility] in order to address transitional stressors. This is session 3 of 6 of this episode of care. Risk Assessment (e.g., lethality, suicidality/homicidality): C-SSRS Screening [place]-Suicide Severity Rating Scale (C-SSRS Screener) 1. Over [...] required due to responses to other questions. [place] reports no current homicidal ideation. Brief Mental Status Exam (as applicable) Appearance and Behavior: casual dress, normal grooming, and hygiene Mood/Affect: stressed ; affect congruent Sensorium (orientation, memory, concentration): Ox3 Intellectual Functioning: WNL; no deficits noted Thought Processes/Regulation: goal-directed and logical [place] was reminded of the need to assess [...] Anxiety 02/08/2024 09:55 JERAMIE-7 4 Anxiety PCL-5: No data available for: PCL-5 AUDIT-C: Date Instrument Raw Trans Scale 01/19/2024 09:30 AUDC 1 Total was administered the following self-report instruments to further assess identified area of concern and the use of these intruments to assist in guiding treatment planning and assess progress was discussed with the [place]. Pain Measure reported pain to be a significant concern to address today and reports the following pain levels related to shoulder Homework Review Discussed with progress on interventions agreed upon at last appointment. Functional Assessment/Progress Toward Goals/Session Content ------ Discussed with [place] status of presenting problem and it's impact on functioning and changes since the prior visit, including progress towards current goals. reported increased stress over the past 2 weeks due to transitional stressors (e.g., graduation, moving). As session progressed, Mary reflected on changes in her mood and functioning since the Covid-19 pandemic. reported that she has been able to outwardly cope, but has been unable to fully discuss the impact of what she endured (e.g., of from Covid, lost trust ). In particular, [place] voiced curiosity about whether her current symptoms might meet diagnostic criteria for PTSD. Provider and mutually agreed to explore this topic further in future sessions. Intervention: Psychoeducation Skill Building/Skill Practice Treatment Plan and Follow-up - Patient Goals: Increase Relaxation Skills Homework/Handouts: Other: Complete PCL-5. Plans for Follow-up: Continue [facility] with [facility] Provider Return to Clinic Follow-Up Appointment: 04/04/24 at 9:30am Visit Duration: 30 minutes Patient records have been reviewed. Informed/Reviewed with about MH resources in case of crisis including the [facility] number (press 1) and emergency room services. Outcome and recommendations will be discussed with the referring provider and other relevant PACT team members as needed. /guilherme/ DANIELLE SAVAGE Signed: 03/21/2024 15:46 03/21/2024 ADDENDUM STATUS: COMPLETED Per 's request, please schedule an appointment with Danielle Savage on 04/04/24 at 9:30am in [facility]. thanks /james SAVAGE Signed: 03/21/2024 15:47 Receipt Acknowledged By: 03/22/2024 09:27 /james ESPARZA MSA 03/22/2024 ADDENDUM STATUS: COMPLETED Scheduled the following appt per provider request. Please see below for details. [facility] April 04, 2024@09:30 MELDRIM SCHEDULED 9:30AM PER NOTES ON 03/21/24 *MAILED APPT REMINDER LETTER* /james ESPARZA MSA Signed: 03/22/2024 09:28 DANIELLE SAVAGE [facility] March 21, 2024 10:10 AM MENTAL HEALTH DIAG NOSTIC STUDY NOTE: LOCAL TITLE: MENTAL HEALTH DIAGNOSTIC STUDY NOTE STANDARD TITLE: MENTAL HEALTH DIAGNOSTIC STUDY NOTE DATE OF NOTE: MARCH 21, 2024@10:10:18 ENTRY DATE: MARCH 21, 2024@10:10:18 AUTHOR: DANIELLE SAVAGE EXP COSIGNER: URGENCY: STATUS: COMPLETED Assessments were sent to the via text/email. These assessments were completed by NICOL MUSTAFA on their own device on 03/21/2024 9:32:01 AM. PATIENT HEALTH QUESTIONNAIRE-9 (PHQ-9) The patient reported some symptoms of depression; symptoms are not consistent with a major depressive episode. Patient reported being bothered by the following over the last 2 weeks: 1. Little interest or pleasure: Several Days 2. Feeling down, depressed or hopeless: Not at all 3. Trouble sleeping: Several Days 4. Tired, low energy: Several Days 5. Poor appetite, over-eating: Not at all 6. Feelings of failure, guilt: Not at all 7. Trouble concentrating: Several Days 8. Motor retardation, agitation: Not at all 9. Thoughts better off /hurting self: Not at all PHQ-9 total score = 4 1-4 = minimal symptoms 5-9= mild symptoms 10-14= moderate symptoms 15-19= moderately severe symptoms 20-27= severe depressive symptoms The patient stated that the depressive symptoms made it somewhat difficult to work, take care of things at home, or get along with others. PHQ-9 Total Score (past 180 days): 03/21/2024 4 02/22/2024 2 02/08/2024 3 GENERAL ANXIETY DISORDER-7 (JERAMIE-7) Patient reported being bothered by the following over the last two weeks: 1. Feeling nervous, anxious or on edge: Not at all 2. Not being able to stop or control worrying: Not at all 3. Worrying too much about different things: Several days 4. Trouble relaxing: Several days 5. Feeling restless (hard to sit still): Several days 6. Becoming easily annoyed or irritable: More than half the days 7. Afraid as if something awful might happen: Not at all JERAMIE-7 total score = 5 0-4=minimal symptoms 5-9=mild symptoms 10-14=moderate symptoms 15-21=severe symptoms The patient stated that the anxiety symptoms made it somewhat difficult to work, take care of things at home, or get along with others. JERAMIE-7 Total Score (past 180 days): 03/21/2024 5 02/22/2024 5 02/08/2024 4 /es/ DANIELLE SAVAGE Signed: 03/21/2024 12:57 DANIELLE SAVAGE [facility]
--- OUTSIDE RECORDS SUMMARY | 2025-03-13 09:24 | XMS_ITS | Encounter Summary ---
Author Name [facility] [place] [place] [facility] [place] Address [address] [place] [address] Care Team Providers Care Plane Tableman Name Role Phone YARA RAZOA Primary Care Provider Unavailabl e Insurance Providers: [...] Name Patient's Relationship to Policy Ritter [facility] 2024 [facility] Nov 07, 2024 [facility] [id number] VITO MUSTAFA PATIENT Selected Encounter This section includes the [place] for the Encounter. Date/Time Encounter Type Encounter Description Reason Provider Source Jan 16, 2025 11:47 AM Outpatient Encounter PRIMARY CARE/MEDICINE JOSSELIN LOPEZ Encounter Template Text not used by [place] Plan of Treatment: Future Appointments (+ 6 months) and Future Tests (+/- 45 days) The Plan of Treatment section includes future care activities for the patient from all [place] treatmentfacilities. This section includes future appointments and future orders which are active, pending or scheduled. Future Appointments This section includes appointments that were scheduled to occur 6 months from the date of the Encounter, up to a maximum of 20 appointments. The data comes from all [place] treatment facilities. Appointment Date/Time Appointment Type Appointme nt Facility Name Feb 22, 2025 09:30 AM [facility] March 18, 2025 09:30 AM [facility] Social History: Smoking Status (Most current) and Tobacco Use (All prior to encounter date) This section includes the most current, and the historical, smoking and tobacco- related health factors from the [place] facility where the Encounter took place. Current Smoking Status This section includes the most current smoking, or tobacco-related health factor, from the [place] facility where the Encounter took place. Date/Time Current Smoking Status Comment Samy ity Jan 19, 2024 09:30 AM VA-TOBACCO FORMER USER [facility] Tobacco Use History This section includes a history of the smoking, or tobacco-related health factors, that were collected on or before the date of the Encounter. The data comes from the [place] facility where the Encounter took place. Date/Time Smoking Status/Tobacco Use Comment F accharu Jan 19, 2024 09:30 AM VA-TOBACCO QUIT 15 YRS OR MORE [facility] Encounter Notes: All associated encounter notes This section contains the clinical notes associated to the Encounter. Date/Time Encounter Note(s) Provider Source Jan 16, 2025 11:47 AM PRIMARY CARE [employer] E MESSAGING: LOCAL TITLE: PRIMARY CARE SECURE MESSAGING STANDARD TITLE: PRIMARY CARE SECURE MESSAGING DATE OF NOTE: JAN 16, 2025@11:47 ENTRY DATE: JAN 16, 2025@11:47:50 AUTHOR: JOSSELIN LOPEZ EXP COSIGNER: URGENCY: STATUS: COMPLETED ------Original Message ------- Sent: 01/16/2025 11:47 AM ET From: JOSSELIN LOPEZ To: NICOL MUSTAFA Subject: General:Health promotion/Disease Prevention [place]- My name is Josselin and I am working w/your PACT PCP Jian Razo today and I see that we are missing records from previous nonVA healthcare. Would you be able to share w/me the results OR location and approximate dates of some preventative health screenings? Jian Razo mentioned that you had a Cologuard testing-- whom ordered this and would it be OK w/you if I request those records to update your [place]? I also see that you had a PAP test approx 2022, but that we were going to get you into here @ [facility] in November for pelvic/PAP. You may not be due if it was done in 2022, but I would like to get the results to review and place into your [place] chart pls. Lastly, do you get vaccinations outside the [facility]? Specifically the seasonal influenza? Shingles? Thank you for your help and time. Sincerely, Josselin Lopez, Primary Care Float Bebe [facility] /guilherme/ JOSSELIN LOPEZ PRIMARY CARE COFFEE SHOP MANAGER Signed: 01/16/2025 11:47 [facility]SELIN LOPEZ [facility]
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
--- OUTSIDE RECORDS SUMMARY | 2025-03-13 09:24 | XMS_ITS | Continuity of Care Document ---
Author Organization [facility]. If a dditional information is needed, contact Health Information Management at [phone] Address [address] [place] [address] Phone Care Team Providers Care Property Officer Name Role Phone Unavailable Unavailable Unavailable Unavailable Unavailable Unavailable Unavailable Unavailable Unavailable Unavailable Unavailable Unavailable Medications Fludrocortisone 0.1 MG Oral Tablet;0.1 MG Orally Once a day, 1 tablet Quantity:30 Akilah Robert Start:30-May-2023 Comments:0.1 MG Orally Once a day, 1 tablet Meclizine HCl;12.5 MG Orally once a day, 1 tablet as needed Quantity:30 Akilah Robert Start:21-Apr-2023 Comments:12.5 MG Orally once a day, 1 tablet as needed 120 ACTUAT Fluticasone propi gloria 0.05 MG/ACTUAT Nasal Inhaler;50 MCG/ACT Nasal Quantity:16 Akilah Robert Comments:50 MCG/ACT Nasal Acetaminophen;325 MG Orally every 4 hrs, 1 tablet as needed Akilah Robert Comments:325 MG Orally every 4 hrs, 1 tablet as needed meloxicam 15 MG Oral Tablet; 15 MG Oral Quantity:30 Akilah Robert Comments:15 MG Oral Social History Smoking Status Ex-smoker
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
--- OUTSIDE RECORDS SUMMARY | 2025-03-13 09:24 | XMS_ITS ---
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 Date/Time Encounter Type Encounter Description Reason Pro vider Source Jan 23, 2025 10:39 AM Outpatient Encounter ADMIN PAT ACTIVTIES (MASNONCT) E Encounter Template Text not used by [place] Plan of Treatment: Future Appointments (+ 6 months) and Future Tests (+/- 45 days) The Plan of Treatment section includes future care activities for the patient from all [place] treatmentfacilities. This section includes future appointments and future orders which are active, pending or scheduled. Future Appointments This section includes appointments that were scheduled to occur 6 months from the date of the Encounter, up to a maximum of 20 appointments. The data comes from all [place] treatment facilities. Appointment Date/Time Appointment Type Appointme nt Facility Name Feb 22, 2025 09:30 AM [facility] March 18, 2025 09:30 AM AMBULATORY - PSYCHIATRY [facility] Encounter Notes: All associated encounter notes This section contains the clinical notes associated to the Encounter. Date/Time Encounter Note(s) Provider Source Jan 23, 2025 10:39 AM PRIMARY CARE ADMIN ISTRATIVE NOTE: LOCAL TITLE: PC ADMINISTRATIVE NOTE STANDARD TITLE: PRIMARY CARE ADMINISTRATIVE NOTE DATE OF NOTE: JAN 23, 2025@10:39 ENTRY DATE: JAN 23, 2025@10:39:44 AUTHOR: ANUPAM GUNDERSON EXP COSIGNER: URGENCY: STATUS: COMPLETED Attempted to reach patient and no answer. Left HIPAA friendly message for patient to call back and schedule JESUS PACT DELTA RTC with PCP. If patient calls back please schedule per patients desired date and time. Thank you! /guilherme/ ANUPAM GUNDERSON Advanced Technical Support Coordinator Signed: 01/23/2025 10:39 ANUPAM GUNDERSON[facility]
--- OUTSIDE RECORDS SUMMARY | 2025-03-13 09:24 | XMS_ITS | Encounter Summary ---
Author Name [facility] [place] Address [address] [place] [address] Care Team Providers Care Aircraft Instrument Repairer Name Role Phone JAHAIRA NIETO Primary Care [...] Policy Ritter [facility] 2024 [facility] Nov 07, 2024 [facility] [id number] VITO MUSTFAA PATIENT Selected Encounter This section includes the information on record at [place] for the Encounter. Date/Time Encounter Type Encounter Description Reason Provider Source Jan 08, 2025 09:30 AM PSYTX W PT 60 MINUTES [facility] - IND ICD-10-CM F43.9 Reaction to severe stress, unspecified SANFORD GARZA Radha Encounter Template Text not used by [place] Assessments - Encounter Diagnoses This section includes the primary and secondary diagnoses documented for the Encounter. Date/Time Primary/Secondary Diagnosis Diagnosis Name Provider Source Jan 08, 2025 02:00 PM PRIMARY Reaction to severe stress, unspecified [facility] Jan 08, 2025 02:00 PM SECONDARY Generalized anxiety disorder [facility] Plan of Treatment: Future Appointments (+ 6 months) and Future Tests (+/- 45 days) The Plan of Treatment section includes future care activities for the patient [facility] [place] [facility]. This section includes future appointments and [...] and tobacco- related health factors from the [place] facility where the Encounter took place. Current Smoking Status This section includes the most current smoking, or tobacco-related health factor, from the [place] facility where the Encounter took place. Date/Time Current Smoking Status Comment Facil ity Jan 19, 2024 09:30 AM VA-TOBACCO FORMER USER [facility] Tobacco Use History This section includes a history of the smoking, or tobacco-related health factors, that were collected on or before the date of the Encounter. The data comes from the [place] facility where the Encounter took place. Date/Time Smoking Status/Tobacco Use Comment F acility Jan 19, 2024 09:30 AM VA-TOBACCO QUIT 15 YRS OR MORE [facility] Encounter Notes: All associated encounter notes This section contains the clinical notes associated to the Encounter. Date/Time Encounter Note(s) Provider Source Jan 08, 2025 01:36 PM MENTAL HEALTH NOTE : LOCAL TITLE: BHIP PSYCHOTHERAPY NOTE STANDARD TITLE: MENTAL HEALTH NOTE DATE OF NOTE: JAN 08, 2025@13:36 ENTRY DATE: JAN 08, 2025@13:36:47 AUTHOR: SANFORD GARZA COSIGNER: URGENCY: STATUS: COMPLETED BHIP PSYCHOTHERAPY NOTE Has ADDENDA Date of Session: JAN 08, 2025 Duration of Session: 60 minutes Session Number: 6 Diagnosis Addressed During Session: Reaction to severe stress,unspecified; JERAMIE Session Format: Face to face Reason for Session: anxiety and some mood symptoms Rationale for Duration of Session: Individual [...] engage in treatment planning: intact C-SSRS Screening [place]-Suicide Severity Rating Scale (C-SSRS Screener) 1. 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 She stated it provided confirmation she made the right decision to retire. Discussed any previous hesitation she had. She also stated receiving calls from friends and family members that are overwhelming because they are placing their worries and sometimes anger on her. As a response she has cut contact with them which she said caused others to inquire why and thus leading to more disengagements. This provider assessed for risk but did not express or endorse any thoughts of self-harm. Provided validation to want space to address her own needs as well as not taking on responsibility that is not hers. Discussed self-care and self- soothing techniques. Therapeutic Intervention: empathic and reflective listening, psychoeducation, processing Patient Response to Treatment: actively engaged, self-aware, insightful, open and receptive to feedback provided Progress Towards Treatment Goal: positive progress Plan and Scheduling Instructions: 01/22@9:30am; 02/08@9:30am; 02/22@9:30am Pain management, if needed, is managed by primary care. Reason for Ordering Tests, Consults or Changes in Medications: Alcohol Use Screen (AUDIT-C): Alcohol Screen: SCREEN FOR ALCOHOL (AUDIT-C) An alcohol screening test (AUDIT-C) was negative (score=1). 1. How often did you have a drink containing alcohol in the past year? Consider a drink to be a 12 ounce can or bottle of regular beer, 8 ounces of malt liquor, a 5 ounce glass of table wine, or a 1.5 ounce shot of liquor (like scotch, gin, or vodka). Monthly or less 2. How many drinks containing alcohol did you have on a typical day when you were drinking in the past year? One or two drinks 3. How often did you have 4 or more drinks on one occasion in the past year? Never Depression Screening: Perform PHQ-2 A PHQ-2 screen was performed. The score was 1 which is a negative screen for depression. Over the past two weeks, how often have you been bothered by the following problems? 1. Little interest or pleasure in doing things Several days 2. 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 Unable to reach pt by phone, called x2, left HIPAA compliant VM. Forwarding to [facility] Team JUNIOR for knowledge purposes and additional contact attempts, thank you! Pt has other appts for [facility] sched on 02/08 and 02/22. /guilherme/ Gasper Kelley MSA Signed: 01/18/2025 14:26 01/21/2025 ADDENDUM STATUS: COMPLETED Contacted pt to make aware of clinic canc in: [facility] 01/22/2025@09:30 Cancelled By Clinic Spoke to pt, Pt has next appt scheduled with provider and has no issues or concerns, Informed pt to call back if he has any issues or needs prior to next appt, pt voiced understanding. pt will await next already sched appt: [facility] 02/08/2025@09:30 Future /es/ RICK HARMON Signed: 01/21/2025 16:24 [facility] GAR[facility]
--- NOTE | 2025-03-13 09:30 | XR_ITS ---
FINAL REPORT CLINICAL HISTORY: Pain, arthritis COMPARISON: None FINDINGS: LEFT FOOT Two views of the left foot were obtained. There is no acute osseous abnormality. The joint spaces are preserved. There is a posterior calcaneal spur. There is no acute soft tissue abnormality. IMPRESSION: No acute osseous abnormality identified. Reviewed, Interpreted and Dictated by Romy Whyte MD Transcribed by Gilda Sue Authenticated and [facility]
--- NOTE | 2025-03-13 09:30 | XR_ITS ---
FINAL REPORT CLINICAL HISTORY: Pain, arthritis COMPARISON: None FINDINGS: RIGHT FOOT Two views of the right foot were obtained. There is no acute osseous abnormality. The joint spaces are preserved. There is a posterior calcaneal spur. There is no acute soft tissue abnormality. IMPRESSION: No acute osseous abnormality identified. Reviewed, Interpreted and Dictated by Romy Whyte MD Transcribed by Gilda Sue Authenticated and [facility]
== END 2025-03-13 23:59 | disposition home or self-care (01) ==
PROVIDERS: PCP Chiropractor; Visit Provider Chiropractor
DX: M79.671 Pain in right foot (principal); M79.672 Pain in left foot
CPT/HCPCS: 73620

== ENCOUNTER 2025-07-22 11:06 | Outpatient (CLI) | payer OTHER, SELFPAY ==
--- NOTE | 2025-07-22 | XR_ITS ---
FINAL REPORT CLINICAL HISTORY: pain COMPARISON: None FINDINGS: 3 views of the right shoulder show no evidence of acute displaced fracture or dislocation of the visualized bony architecture. The joint spaces appear normal. IMPRESSION: Unremarkable exam. Reviewed, Interpreted and Dictated by Jenny Hicks MD Transcribed by Gilda Sue Authenticated and [facility]
--- OUTSIDE RECORDS SUMMARY | 2025-07-22 11:14 | XMS_ITS | Patient Health Record ---
Author Organization [id number] [facility] Address [address] [phone] Support Name Relationship Address Phone Juliane Bright Guarantor Unknown Reason For Referral No Information Medications Medication SIG (Take, Route, Frequency, Duration) Notes Start Date End Date Status Fluticasone Propionate 50 MCG/ACT Nasal for 30 Days Active Acetaminophen 325 MG 1 tablet as needed Orally every 4 hrs Active Meloxicam 15 MG Oral for 30 Days Active Fludrocortisone Acetate 0.1 MG 1 tablet Orally Once a day for 30 days 05/30/2023 Active Meclizine HCl 12.5 MG 1 tablet as needed Orally once a day for 30 days 04/21/2023 Active Social History Tobacco Use: Social History Observation Description Date Details (start date - stop date) Former Smoker NA - NA Tobacco Status: Question Answer Notes Patient is a former smoker Plan Of Treatment Future Test Test Name Order Date ECHOCARDIOGRAM ([id number]) 04/21/2023 Insurance Providers Payer Name Payer Address Payer Phone Subscriber Number Group Number Insured Name Patient Relationship to Insured Coverage Start Date Coverage End Date [facility] [address] [place], [place] [id number] Juliane Bright Self - patient is the insured Medical (General) History Medical History History ICD Code Decreased auditory acuity Tinnitus Aortic insufficiency, mild Surgical History Surgery Date(Month/Year) Bone spur excision Hip surgery Clavicle removal Cervical spine surgery Elbow surgery X2 carpal tunnel release Bilateral tubal ligation C section X2 Thumb Surgery
--- OUTSIDE RECORDS SUMMARY | 2025-07-22 11:15 | XMS_ITS | Encounter Summary ---
Author Organization Healthcare Address [address] [place] [address] Care Team Providers Care Business Services Officer Name Role Phone Pcp, No Primary Care Provider Unavailabl e Reason for Referral * Consultation (Routine) - Closed Specialty Diagnoses / Procedures Referred By Contac t Referred To Contact Neurology Diagnoses Dizziness Juanpablo Barrow MD [address] [facility], [address] [address] Phone: tel: fax: Socrates Hernandez MD [address] [facility] [address] [place] [address] Phone: tel: fax: Referral ID Status Reason Start Date Expiration Date V isits Requested Visits Authorized [id number] Closed Specialty Services Required 03/22/2023 09/20/2024 1 1 Encounter Details Date Type Department Care Team (Late st Contact Info) Description 03/22/2023 Community [facility] Community [facility] [address] [place] [address] Juanpablo Barrow MD [address] [facility], [address] [address] Dizziness (Primary Dx) Social History Tobacco Use Types Packs/Day Years Used Date Smoking Tobacco: Never Assessed Comments Unknown Sex and Gender Information Value Date Recorded Sex Assigned at Not on file Legal Sex Female 11:57 AM EDT Gender Identity Not on file Sexual Orientation Not on file documented as of this encounter Plan of Treatment Scheduled Referrals Name Type Priority Associated Diagnoses Order Schedule Ambulatory referral to Neurology Outpatient Referral Routine Dizziness Expected: 03/22/2023 (Approximate), Expires: 09/22/2024 documented as of this encounter Visit Diagnoses Diagnosis Dizziness- Primary Dizziness and giddiness documented in this encounter Care Teams Business Services Officer Relationship Specialty Start Date End Date Pcp, No [address] [place] [address] PCP - General Family Medicine 09/20/23 documented as of this encounter
--- OUTSIDE RECORDS SUMMARY | 2025-07-22 11:15 | XMS_ITS | Clinical Summary ---
Author Organization Healthcare Address [address] [place] [address] Care Team Providers Care Systems Engineer Name Role Phone Pcp, No Primary Care Provider Unavailabl e Allergies No known active allergies Medications diphenhydrAMINE -acetaminophen (Tylenol PM) 25-500 MG per tablet Take 1 tablet by mouth at night if needed for sleep. Active acetaminophen (Tylenol) 325 MG tablet every 4 (four) hours. Active meclizine (Antivert) 12.5 MG tablet Take 1 tablet (12.5 mg) by mouth. 01/19/2024 Active DULoxetine (Cymbalta) [address] capsule Take 1 capsule (30 mg) by mouth 1 (one) time each day. Do not crush or chew. 30 capsule 2 06/04/2024 Active Active Problems Problem Noted Date Diagnosed Date Dizziness 06/04/2024 Bilateral tinnitus 06/04/2024 Persistent postural-perceptual dizziness 024 Family History Medical History Relation Name Comments Arthritis Brother 1 Ishan Bryson Cancer Brother 2 Lorenzo Bryson Arthritis Father Ishan Bryson Cancer Father Ishan Bryson Hypertension Father Ishan Bryson Arthritis Mother Torri Bryson Cancer Mother Torri Bryson Hyperthyroidism Mother Torri Bryson Relation Name Status Comments Brother 1 Ishan Bryson Brother 2 Lorenzo Bryson Father Ishan Bryson Mother Torri Bryson Social History Tobacco Use Types Packs/Day Years Used Date Smoking Tobacco: Former Cigarettes 1 18 0 11/07/1985 - 11/07/2003 Smokeless Tobacco: Never Alcohol Use Standard Drinks/Week Comments Yes 0 (1 standard drink = 0.6 oz pur e alcohol) socially Comments Unknown Sex and Gender Information Value Date Recorded Sex Assigned at Not on file Legal Sex Female 11:57 AM EDT Gender Identity Not on file Sexual Orientation Not on file Last Filed Vital Signs Vital Sign Reading Time Taken Comments Blood Pressure 112/70 06/04/2024 2:13 PM EDT Pulse 73 06/04/2024 2:13 PM EDT Temperature - - Respiratory Rate - - Oxygen Saturation 98% 06/04/2024 2:13 PM EDT Inhaled Oxygen Concentration - - Weight 91.2 kg (201 lb) 06/04/2024 2:13 PM EDT Height 175.3 cm (5' 9 ) 06/04/2024 2:13 PM EDT Body Mass Index 29.68 06/04/2024 2:13 PM EDT Plan of Treatment Health Maintenance Due Date Last Done Comments [facility]-Depression Screening 1969 [facility]-HIV Screening 1969 [facility]-Hepatitis C Screening 1969 [facility]-/Child/Adol SDOH Screenings 1969 [facility]- SDOH Screenings 1987 [facility]-Adult SDOH Screenings 1987 [facility]-IPV Vaccines (2 of 3 - Adult catch-up series) 12/05/1989 11/07/1989 [facility]-Pap Smear 1990 [facility]-Cervical Cancer Screening 1999 [facility]-HPV/Cotest 1999 CT Colonography 2014 Colonoscopy 2014 FIT-DNA 2014 FIT 2014 FOBT 2014 Sigmoidoscopy 2014 [facility]-Colorectal Cancer Screening 2014 [facility]-Pneumococcal Vaccine: 50+ Years (1 of 1 - PCV) 2019 [facility]-Zoster Vaccines (1 of 2) 2019 [id number] Vaccine (3 - season) 2025 08/22/2021, 07/19/2021 [facility]-Influenza Vaccine (#1) 07/08/202508/08, 08/21/2022, 08/23/2021, Additional history exists [facility]-Breast Cancer Screening 02/27/2026 04/2 01/2024, 02/28/2024, 02/22/2023, Additional history exists [facility]-DTaP,Tdap,and Td Vaccines (4 - Td or Tdap) 01/18/2034 01/19/2024, 06/16/2019, 03/09/2009, Additional history exists [facility]-Hepatitis A Vaccines Aged Out 07/18/2010, 01/2009 No longer eligible based on patient's age to complete this topic [facility]-Hepatitis B Vaccines Completed 015, 04/13/2014, 03/09/2014 [facility]-Obesity Intervention Completed 024, 02/02/2024, 09/20/2023 HPV Vaccines Aged Out No longer eligi ble based on patient's age to complete this topic [facility]-HIB Vaccines Aged Out No longer e ligible based on patient's age to complete this topic [facility]-Rotavirus Vaccines Aged Out No lo nger eligible based on patient's age to complete this topic [place] [address] [place] [address] Care Teams Systems Engineer Relationship Specialty Start Date End Date Pcp, [place] [address] PCP - General Family Medicine 09/20/23
--- OUTSIDE RECORDS SUMMARY | 2025-07-22 11:15 | XMS_ITS | Clinical Summary ---
Author Organization [facility] Address [address] [place] [address] Phone Care Team Providers Care Assembler Small Products Name Role Phone Huy Rodriguez Primary Care Provider [phone] Allergies No known active allergies Medications fluticasone (FLONASE) 50 mcg/actuation Nasl Magnolia, SuspensionIndica tions:Acute URI 1 Magnolia by Nasal route daily. 1 Bottle 8 Active gabapentin (NEURONTIN) 100 mg Oral CapsuleIndicatio ns:Sciatica, unspecified laterality Take 1 Cap by mouth 3 times daily as needed for Pain. 90 Cap 0 Active diclofenac (VOLTAREN) 75 mg Oral Tablet, Delayed Release (E.C.)Indication s:Chronic low back pain TAKE 1 TABLET BY MOUTH TWICE DAILY 60 Tab 5 1 Active zolpidem (AMBIEN) 10 mg Oral TabletIndication s:Insomnia, persistent Take 1 Tab by mouth nightly as needed. 30 Tab 2 1 Active diclofenac (VOLTAREN) 1 % Top GelIndications:C hronic pain of both wrists,Right Achilles tendinitis Apply 4 g topically 4 times daily as needed for Pain. dispense 1 tub 1 Each 2 Active meloxicam (MOBIC) 15 mg Oral Tablet 15 mg nightly. 1 Active meclizine HCl (MECLIZINE ORAL) Take 12.5 mg by mouth nightly. Active fludrocortisone (FLORINEF) 0.1 mg Oral Tablet Take 0.1 mg by mouth daily. Active oxyCODONE (ROXICODONE) 5 mg Oral Tablet Take 1 Tablet by mouth every 4 hours as needed for Acute Pain > 3 Days Medically Necessary (R52). 42 Tablet 06/15/2023 3:56 PM EDT Active Additional Information Patient not taking.Reason: Therapy Completed, Reported on 06/28/2023 aspirin 81 mg Oral Tablet, Chewable Take 1 Tablet by mouth 2 times daily (with meals). 60 Tablet 06/15/2023 3:56 PM EDT 3 Active Active Problems Patient Care Coordination No te Formatting of this note migh t be different from the original. Anthony: 05/14/2021, 05/28/2020, 05/30/19, 03/19/19, 04/24/18, 02/14/18, 07/06/17 Problem Noted Date Diagnosed Date Primary osteoarthritis of right hip 05/31/2023 Overview (05/31/2023): Added automatically from request for surgery [id number] Bilateral sciatica 10/30/2019 Mass of left upper extremity 06/12/2019 Insomnia, persistent 07/05/2017 Overview (07/05/2017): uses Ambien when traveling only Surgical History Surgery Date Site/Laterality Comments NECK SURGERY 10/07/2016 - 11/06/2016 ACDF WITH CADAVOR BONE AND PLATE X 1,SCREWS X 4 (10/2016) [place] @ [facility] CARPAL TUNNEL RELEASE Right ELBOW SURGERY 11/07/2013 - 11/06/2014 Right RIGHT ELBOW SCREW X 1 (2013) IN [place] SECTION x2 TUBAL LIGATION ENDOMETRIAL ABLATION 11/07/2011 - 11/06/2012 HAND TENDON SURGERY 08/16/2017 Finger/Right RIGHT THUMB EXTENSOR TENDON REPAIR ; Surgeon: Lorenzo Baker MD; Location: [facility]; Service: Hand SOFT TISSUE BIOPSY 06/25/2019 Left Excisional Biopsy Left Arm Mass; Surgeon: Tiara Hicks MD; Location: [facility] OR; Service: General ELBOW SURGERY 11/07/2011 - 11/06/2012 Right nerve surgery EYE SURGERY 04/07/2019 - 05/06/2019 Bilateral LASIK DENTAL SURGERY wisdom teeth extracted, molar x 1 extracted upper left side HIP ARTHROSCOPY 03/21/2020 Right RIGHT HIP ARTHROSCOPY LABRAL REPAIR PINCER AND CAM RESECTION; Surgeon: Liborio Rojas MD; Location: [facility]; Service: Orthopedics Medical devices from this surgery are in the Medical Devices section. CLAVICLE EXCISION 12/29/2020 Right RIGHT OPEN DISTAL CLAVICLE EXCISION; Surgeon: Maryanne Edwards MD; Location: [facility] MAIN OR; Service: Orthopedics HIP SURGERY HIP ARTHROPLASTY 06/15/2023 Hip/Right RIGHT TOTAL HIP REPLACEMENT; Surgeon: Liborio Rojas MD; Location: [facility] OR; Service: Orthopedics Medical devices from this surgery are in the Medical Devices section. Medical History Medical History Date Comments Ulcer in the past Arthritis shoulders, right arm, and lower back Anemia in the past Thumb injury 08/05/2017 cut right thumb with knife Former cigarette smoker Quit ~20 03 Wears glasses reading glasses Encounter for blood transfusion 2007 with Family History Medical History Relation Name Comments non hodgkins lymphoma Brother 1 No Known Problems Brother 2 Cancer Father Heart Disease Father stents High Cholesterol Father Lung Cancer Maternal Grandfather Hypertension Maternal Grandmother Anesth Problems Mother post op N&V, ? heart issues-unsure Cancer Mother Heart Disease Mother Thyroid Disease Mother thyroid chivo yo valve replacement Mother ventral flap replaced Mother Heart Disease Paternal Grandfather h aving quadruple bypass No Known Problems Paternal Grandmother fibriod Sister Relation Name Status Comments Brother 1 Alive Brother 2 Alive Father Maternal Grandfather Maternal Grandmother Mother Paternal Grandfather Paternal Grandmother Sister Alive Social History Tobacco Use Types Packs/Day Years Used Date Smoking Tobacco: Former Cigarettes 0.5 17.7 1 - 05/07/2003 Smokeless Tobacco: Never Tobacco Cessation:Counseling Given: No Alcohol Use Standard Drinks/Week Comments Yes 1 (1 standard drink = 0.6 oz pur e alcohol) occ PHQ-2 Answer Date Recorded PHQ-2 Total Score 0 01/12/2021 Comments No Sex and Gender Information Value Date Recorded Sex Assigned at Not on file Legal Sex Female 2:18 PM EDT Gender Identity Not on file Sexual Orientation Not on file Obstetrics History Para Term AB IAB SAB Ectopic Multiple Livin g Live Births 5 4 4 5 Date Outcome GA Total Labor Labor/2nd/3rd Weight Sex Type Anes PTL Amparo A1 A5 Name Clin Term Term Term Term Last Filed Vital Signs Vital Sign Reading Time Taken Comments Blood Pressure 102/42 06/15/2023 5:09 PM EDT Pulse 80 06/15/2023 5:09 PM EDT Temperature 36.7 C (98.1 F) 06/15/2023 5:09 PM EDT Respiratory Rate 12 06/15/2023 4:37 PM EDT Oxygen Saturation 100% 06/15/2023 5:09 PM EDT Inhaled Oxygen Concentration - - Weight 89 kg (196 lb 1.6 oz) 06/15/2023 11:01 AM EDT Height 175.3 cm (5' 9 ) 06/15/2023 11:01 AM EDT Body Mass Index 28.96 06/15/2023 11:01 AM EDT Plan of Treatment Health Maintenance Due Date Last Done Comments Annual Wellness Exam 1972 HPV/Pap Cotest 1999 Colonoscopy 2014 FIT 2014 Sigmoidoscopy 2014 Virtual Colonography 2014 Pneumococcal Vaccine 50+ (1 of 1 - PCV) 2019 Zoster (1 of 2) 2019 Cervical Cancer Screening 11/19/2022 Pap Smear 11/19/2022 11/19/2019 Cologuard 11/21/2022 11/21/2019, 11/21/2019 Colon Cancer Screening 11/21/2022 Breast Cancer Screening 02/22/2025 02/23/20, 02/22/2023, 02/26/2021, Additional history exists COVID-19 Vaccine ( season) 2025 08/22/2021, 07/19/2021 Influenza Vaccine (#1) 2025 , 09/29/2020, 09/29/2020, Additional history exists DTaP/TDaP/Td (4 - Td or Tdap) 01/18/2034 01/19/2024, 06/16/2019, 03/09/2009, Additional history exists Hepatitis B Vaccine Completed 07/19/2015, 04/13/2014, 03/09/2014 Meningococcal B Vaccine Aged Out No l onger eligible based on patient's age to complete this topic Goals Goal Patient Goal Type Associated Problems Recent Progress Patient-Stated? Author Maintain a healthy diet, exercise regularly and maintain an ideal body weight General No Juliane Escobar RMA Stay Tobacco Free Lifestyle No Justin Simental MD Medical Devices Implanted Type Area Transformation Consultant Device Identifier Shelf Expiration Date Model / Serial / Lot Right Elbow Screw X 1 (2013) In [place] Acd[employer] With Cadavor Bone And Plate X 1,Screws X 4 (10/2016) [place], [place] @ [facility] Knotless Flex Cinch Lock - [id number] Implanted:Qty: 3 on 03/21/2020 by Liborio Rojas MD at [facility] Right: Hip MICHAEL:ENDOSCOP Y [id number] 03/14/2021 [id number] / / [id number] Cup Actb Trident Ii Sz-E 52mm Clstr Scr 5hl Tritan Hap Prim - [id number] Implanted:Qty: 1 on 06/15/2023 by Liborio Rojas MD at [facility] Right: Hip MICHAEL:ORTHOPED ICS [id number] 05/15/2028 702-04-52E / / [id number] Insert O Degree Trident X 3 36mm Code E - [id number] Implanted:Qty: 1 on 06/15/2023 by Liborio Rojas MD at [facility] Right: Hip MICHAEL:ORTHOPED ICS [id number] 04/20/2028 723-00-36E / / [id number] Stem Sz4 42mm Ofst Accolade Ii Prim Recon Ti Plasm [employer] - [id number] Implanted:Qty: 1 on 06/15/2023 by Liborio Rjoas MD at [facility] Right: Hip MICHAEL:ORTHOPED ICS [id number] 05/02/2028 [id number] / / [id number] Head Fem V-40 36mm-5mm Nk Biolox Delta Cerm Tapr Prim Mod - [id number] Implanted:Qty: 1 on 06/15/2023 by Liborio Rojas MD at [facility] Right: Hip MICHAEL:ORTHOPED ICS [id number] 03/16/2028 [id number] / / [id number] Procedures Procedure Name Priority Date/Time Associated Diagnosis Comments MM MAMMO DIGITAL SARA SCREEN BILAT Routine 02/26/2021 9:08 AM EDT Encounter for screening mammogram for malignant neoplasm of breast COLOGUARD Routine 11/21/2019 4:03 PM EST Screening for colon cancer 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 ~ DISCLAIMER * Any patient with a palpable abnormality, unexplained by breast imaging, should be managed on clinical basis by the attending physician. * Breast imaging has a false negative rate of 15%. * The patient was notified by mail of the results of this examination. *The patient's information was entered into a reminder system with a target due date for the next mammogram, in accordance with the [employer] and the Society of Breast Imaging recommendations. Narrative 02/26/2021 10:16 AM EDT Procedure:MM MAMMO DIGITAL SARA SCREEN BILAT ~ Reason for exam: screening, asymptomatic. Z12.31-Encounter for screening mammogram for malignant neoplasm of ewpqhn-QPN-43-CM ~ MM MAMMO DIGITAL SARA SCREEN BILAT Bilateral CC and MLO view(s) were taken. Technologist: Kaylan Bell There are scattered fibroglandular densities. Prior study comparison: Compared with prior studies the most recent being 12/03/19. No mammographic evidence of malignancy. No suspicious calcifications. ~ Procedure Note ShaunMyron, - 02/26/2021 Procedure:MM MAMMO DIGITAL SARA SCREEN BILAT ~ Reason for exam: screening, asymptomatic. Z12.31-Encounter for screening mammogram for malignant neoplasm of qqekpg-HES-92-CM ~ MM MAMMO DIGITAL SARA SCREEN BILAT Bilateral CC and MLO view(s) were taken. Technologist: Kaylan Bell There are scattered fibroglandular densities. Prior study comparison: Compared with prior studies the most recentbeing 12/03/19. No mammographic evidence of malignancy. No suspicious calcifications. ~ IMPRESSION: Negative (ZWQ-Gwnonfmc-5) ~ RECOMMENDATION: Routine screening mammogram in 1 year. ~ DISCLAIMER * Any patient with a palpable abnormality, unexplained by breast imaging, should be managed on clinical basis by the attending physician. * Breast imaging has a false negative rate of 15%. * The patient was notified by mail of the results of this examination. *The patient's information was entered into a reminder system with atarget due date for the next mammogram, in accordance with the [employer] and the Society of Breast Imaging recommendations. Justin Simental MD IM MAMMOGRAPHY ORDERABLES Fi nal Result * COLOGUARD (11/21/2019 4:03 PM EST) COLOGUARD CLINICAL REPORT Negative Not Applicable [facility] Comment: A negative result indicates a low likelihood that a colorectal cancer (CRC) or an advanced adenoma (adenomatous polyps with more advanced pre-malignant features) is present. The chance that a person with a negative Cologuard test has a colorectal cancer is less than 1 in 1500 (negative predictive value >99.9%) or has an advanced adenoma is less than 5.3% (negative predictive value 94.7%). These data are based on a prospective cross-sectional screening study of 10,000 individuals at average risk for colorectal cancer who were screened with both Cologuard and colonoscopy. (Donaldo Gomez al, N Engl J Med 2014;370(14):7291-3151) COLOGUARD RE-SCREENING RECOMMENDATION: Periodic routine colorectal cancer screening is an important part of preventive healthcare for asymptomatic persons at average risk for colorectal cancer. Following a negative Cologuard result, the [employer] Society and U.S. Multi-Society Task Force screening guidelines recommend a Cologuard re-screening interval of 3 years. References: [employer] Society (ACS). Colorectal cancer prevention and early detection. [place], [place]: [employer] Society; [updated 2015Feb 28]. https://www.cancer.org/cancer/siuus-itmdou-htuslc/yxtiogfwe-bstaubkah-wulvcyv/ac s-rec ommendations.html. Accessed July 07, 2018; Salvador DK, Lanie MONTOYA, Jaimie OnofreK, Colorectal Cancer Screening: Recommendations for Physicians and Patients from the U.S. Multi-Society Task Force on Colorectal Cancer Screening, Am J Gastroenterology 2017; 112:0824-7735. Test Type: Composite algorithmic analysis of stool DNA-biomarkers with hemoglobin immunoassay. Quantitative values of individual biomarkers are not reportable and are not associated with individual biomarker result reference ranges. Precautions and Limitations: Cologuard is intended for colorectal cancer screening of adults of either sex, 50 years or older, who are at typical average-risk for colorectal cancer. A negative Cologuard test result does not guarantee the absence of colorectal cancer or advanced adenoma (pre-cancer). Patients with a negative Cologuard test result should be advised to continue participating in a colorectal cancer screening program. Cologuard may produce a positive result, even though a colonoscopy may not find colorectal cancer or precancerous polyps. The performance of Cologuard has been established in a cross sectional study (i.e., single point in time). Performance has not been evaluated in adults who have been previously tested with Cologuard or in patients less than 50 years of age. Cologuard has been approved for use by the U.S. FDA. Cologuard performance data in a 10,000 patient pivotal study using colonoscopy as the reference method can be accessed at the following location: www.LogLogic.SignaCert/results. Additional description of the Cologuard test process, warnings and precautions can be found at www.cologuardtest.com. Rx Only. 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 PAP FINAL DIAGNOSIS Negative for intraepithelial lesion or malignancy 11/20/2019 3:57 PM EST [facility] at 1557 EST MICROSCOPIC DESCRIPTION Microscopic examination is performed and the findings corroborate the diagnosis. 11/20/2019 3:57 PM EST [facility] PAP SMEAR ADEQUACY Satisfactory for evaluation 11/20/2019 3:57 PM EST [facility] ENDOCERVICAL T-ZONE Transformation zone present 11/20/2019 3:57 PM EST [facility] EMBEDDED IMAGES 0 3:57 PM EST [facility] PAP DISCLAIMER The Pap Smear is a screening test that aids in the detection of cervical cancer and cancer precursors. Both false positive and false negative results can occur. The test should be used at regular intervals, and positive results should be confirmed before definitive therapy. Processed using the ThinPrep Retail Marketing Manager Automated cytology screening device ([employer]). 11/20/2019 3:57 PM EST [facility] Thin Prep ENDOCERVICAL STRUCTURE / Unknown 11/19/2019 12:46 PM EST 11/19/2019 12:46 PM EST us Justin Simental MD CYTOLOGY ORDERABLES Final Res ult [facility] [address] [place] [address] from Last 3 Months or Most Recently Relevant to Health Maintenance Insurance Care Teams Assembler Small Products Relationship Specialty Start Date End Date Huy Rodriguez [address] [place] [address] PCP - General Family Medicine 10/05/21
--- OUTSIDE RECORDS SUMMARY | 2025-07-22 11:15 | XMS_ITS | Clinical Summary ---
Author Organization [facility] Address [address] [place] [address] Care Team Providers Care Director Medical Name Role Phone Huy Rodriguez MD Primary Care Provider Allergies No known active allergies Medications ondansetron ODT (ZOFRAN-ODT) 4 MG disintegrating tablet 3 Active meclizine (ANTIVERT) 12.5 MG tablet 3 Active fludrocortisone 0.1 MG tablet Take 1 tablet by mouth Daily. 3 Active Active Problems No known active problems Immunizations Immunization Administration Dates Next Due COVID-19 (PFIZER) Purple Cap Monovalent 07/19/20 21 Influenza, Unspecified 08/21/2022 Family History Medical History Relation Name Comments Cancer Brother Lorenzo Non hodgkins ly mphoma Arthritis Father Ishan Cancer Father Ishan Prostate and yaniv ne cancer Hearing loss Father Ishan Heart disease Father Ishan Hyperlipidemia Father Ishan Arthritis Mother Torri Cancer Mother Torri Kidney cancer Heart disease Mother Torri Thyroid disease Mother Torri Vision loss Mother Torri Liver disease Sister Suzanna Breast cancer Neg Hx Ovarian cancer Neg Hx Relation Name Status Comments Brother Lorenzo Father Ishan Alive Prostate cancer and Afib Mother Torri Alive CABG Sister Suzanna Social History Tobacco Use Types Packs/Day Years Used Date Smoking Tobacco: Former Cigarettes 1 17.8 0 01/05/1986 - 11/07/2003 Passive Smoke Exposure: Past Smokeless Tobacco: Never Alcohol Use Standard Drinks/Week Comments Yes 1 (1 standard drink = 0.6 oz pur e alcohol) Kristopher PHQ-2 Answer Date Recorded Retired PHQ-9: Brief Depression Severity Measure Score 0 12/28/2022 Abuse Screen Answer Date Recorded Unsafe at Home or Work/School Not on file Feels Threatened by Someone? Not on file Does Anyone Keep You from Co ntacting Others or Doint Things Outside the Home? Not on file 08/19/2023 Physical Sign of Abuse Present Not on file 1 Housing Stability Answer Date Recorded Current Living Arrangements Not on file 08/07 Potentially Unsafe Housing Conditions Not on bebe e 08/19/2023 Family and Community Support Answer Soy e Recorded Help with Day-to-Day Activities Not on file 08/19/2023 Lonely or Isolated Not on file 08/19/2023 Employment Answer Date Recorded Do you want help finding or keeping work or a carmen b? Not on file 08/19/2023 Disabilities Answer Date Recorded Concentrating, Remembering, or Making Decisions Difficulty Not on file 08/19/2023 Doing Errands Independently Difficulty Not on fi le 08/19/2023 Education Answer Date Recorded Help with school or training? Not on file Preferred Language Not on file 08/19/2023 PHQ-2 Answer Date Recorded Retired PHQ-9: Brief Depression Severity Measure Score 0 12/13/2023 Comments No Sex and Gender Information Value Date Recorded Sex Assigned at Not on file Legal Sex Female 10:03 AM EDT Gender Identity Not on file Sexual Orientation Not on file Last Filed Vital Signs Vital Sign Reading Time Taken Comments Blood Pressure 102/62 12/13/2023 2:37 PM EST Pulse 76 12/13/2023 2:37 PM EST Temperature 36.2 C (97.1 F) 12/13/2023 2:37 PM EST Respiratory Rate 18 12/28/2022 9:55 AM EST Oxygen Saturation 96% 10/05/2021 11:36 AM EST Inhaled Oxygen Concentration - - Weight 88.5 kg (195 lb 3.2 oz) 12/13/2023 2:37 P M EST Height 175.3 cm (5' 9 ) 12/13/2023 2:37 PM EST Body Mass Index 28.83 12/13/2023 2:37 PM EST Plan of Treatment Health Maintenance Due Date Last Done Comments COLON CANCER SCREENING 5 YEA R SIGMOIDOSCOPY [address] COLONOGRAPHY 2014 FECAL OCCULT BLOOD TEST 2014 FIT Testing (1 year) 2014 Pneumococcal Vaccine 50+ (1 of 1 - PCV) 2019 ZOSTER VACCINE (1 of 2) 2019 HEPATITIS C SCREENING 08/11/2021 ANNUAL PHYSICAL 08/11/2022 08/11/2021 Annual Gynecologic Pelvic an d Breast Exam 12/29/2023 12/28/2022 COVID-19 Vaccine (2 - 2024-2 6 season) 2025 07/19/2021 INFLUENZA VACCINE 08/07/2025 08/21/2022 COLOGUARD 01/03/2026 01/03/2023, 11/21/2019 COLORECTAL CANCER SCREENING 01/03/2026 MAMMOGRAM 02/27/2026 02/28/2024, 02/06, 02/28/2023, Additional history exists TDAP/TD VACCINES (2 - Tdap) 01/18/2034 01/19/2024 Procedures Procedure Name Priority Date/Time Associated Diagnosis Comments MAMMO SCREENING DIGITAL TOMOSYNTHESIS BILATERAL W CAD Routine 02/28/2024 10:18 AM EDT Screening mammogram for breast cancer COLOGUARD Routine 01/03/2023 6:30 AM EST Colon cancer screening from Last 3 Months or Most Recently Relevant to Health Maintenance Results * Mammo Screening Digital Tomosynthesis Bilateral With CAD (02/28/2024 10:18 AM EDT) Anatomical Region Laterality Modality Breast N/A Mammography 03/01/2024 6:21 PM EDT Impressions 03/01/2024 6:23 PM EDT No mammographic findings suspicious for malignancy. RECOMMENDATION: Continue annual screening mammography. BI-RADS CATEGORY 1, NEGATIVE. CAD was utilized. The standard false-negative rate of mammography is between 10% and 25%. Complex patterns or increased breast density will markedly elevate the false-negative rate of mammography. A letter, in lay terminology, with the results of this exam will be mailed to the patient. This report was finalized on 03/01/2024 6:[address] Aaliyah Uribe MD. Narrative 03/01/2024 6:23 PM EDT BILATERAL SCREENING MAMMOGRAM WITH TOMOSYNTHESIS: HISTORY: The patient has no personal history or significant family history of breast cancer and no focal breast complaints at the time of screening mammography. TECHNIQUE: Bilateral CC and MLO low dose, full field digital mammographic images were obtained with tomosynthesis. COMPARISON: 02/22/2023, 02/26/2021, and 12/03/2019 FINDINGS: There are scattered areas of fibroglandular density. The fibroglandular pattern is stable. There are no suspicious masses, worrisome calcifications, nonsurgical areas of architectural distortion, or other secondary signs of malignancy. us Destiny Razo APRN IM MAMMOGRAPHY ORDERABLES Fin al Result * Cologuard - Stool, Per Rectum (01/03/2023 6:30 AM EST) Cologuard Negative Negative 01/10/2023 6:05 PM EST [facility] (CLIA #:[id number]) Comment: NEGATIVE TEST RESULT. A negative Cologuard result indicates a low likelihood that a colorectal cancer (CRC) or advanced adenoma (adenomatous polyps with more advanced pre-malignant features) is present. The chance that a person with a negative Cologuard test has a colorectal cancer is less than 1 in 1500 (negative predictive value >99.9%) or has an advanced adenoma is less than 5.3% (negative predictive value 94.7%). These data are based on a prospective cross-sectional study of 10,000 individuals at average risk for colorectal cancer who were screened with both Cologuard and colonoscopy. (Donaldo Bonner et al, N Engl J Med 2014;370(14):0390-4656) The normal value (reference range) for this assay is negative. COLOGUARD RE-SCREENING RECOMMENDATION: Periodic colorectal cancer screening is an important part of preventive healthcare for asymptomatic individuals at average risk for colorectal cancer. Following a negative Cologuard result, the [place] [employer] and U.S. Multi-Society Task Force screening guidelines recommend a Cologuard re-screening interval of 3 years. References: [place] [employer] Guideline for Colorectal Cancer Screening: https://www.cancer.org/cancer/qrstj-rwvcby-nuzizn/cdcawmlzx-dnyjwiqzo-seyscmp/ac s-rec ommendations.html.; Salvador ABDI, Lanie MONTOYA, Jaimie OnofreK, Colorectal Cancer Screening: Recommendations for Physicians and Patients from the U.S. Multi-Society Task Force on Colorectal Cancer Screening , Am J Gastroenterology 2017; 112:5733-5089. TEST DESCRIPTION: Composite algorithmic analysis of stool DNA-biomarkers with hemoglobin immunoassay. Quantitative values of individual biomarkers are not reportable and are not associated with individual biomarker result reference ranges. Cologuard is intended for colorectal cancer screening of adults of either sex, 45 years or older, who are at average-risk for colorectal cancer (CRC). Cologuard has been approved for use by the U.S. FDA. The performance of Cologuard was established in a cross sectional study of average-risk adults aged 50-84. Cologuard performance in patients ages 45 to 49 years was estimated by sub-group analysis of near-age groups. Colonoscopies performed for a positive result may find as the most clinically significant lesion: colorectal cancer [4.0%], advanced adenoma (including sessile serrated polyps greater than or equal to 1cm diameter) [20%] or non- advanced adenoma [31%]; or no colorectal neoplasia [45%]. These estimates are derived from a prospective cross-sectional screening study of 10,000 individuals at average risk for colorectal cancer who were screened with both Cologuard and colonoscopy. (Donaldo Bonner et al, N Engl J Med 2014;370(14):1849-6580.) Cologuard may produce a false negative or false positive result (no colorectal cancer or precancerous polyp present at colonoscopy follow up). A negative Cologuard test result does not guarantee the absence of CRC or advanced adenoma (pre-cancer). The current Cologuard screening interval is every 3 years. ([place] [employer] and U.S. Multi-Society Task Force). Cologuard performance data in a 10,000 patient pivotal study using colonoscopy as the reference method can be accessed at the following location: www.Quandoo.VeriFone/results. Additional description of the Cologuard test process, warnings and precautions can be found at www.colArrayComm.VeriFone. Stool specimen (specimen) Specimen from rectum / Unknown 01/03/2023 6:30 AM EST 01/04/2023 5:41 PM EST us Huy Rodriguez MD BODY FLUIDS AND STOOLS ORDERABL ES Final Result [facility] (CLIA #:[id number]) [address] [place] [address], from Last 3 Months or Most Recently Relevant to Health Maintenance Insurance [facility] Care Teams Director Medical Relationship Specialty Start Date End Date Huy Rodriguez [place] [address] PCP - General Family Medicine 01/22/22
--- NOTE | 2025-07-22 11:18 | XR_ITS ---
FINAL REPORT CLINICAL HISTORY: PAIN COMPARISON: None FINDINGS: RIGHT ANKLE Three views show no evidence of acute displaced fracture or dislocation of the visualized bony architecture. The joint spaces appear normal. IMPRESSION: Unremarkable exam. Reviewed, Interpreted and Dictated by Jenny Hicks MD Transcribed by Gilda Sue Authenticated and [facility]
--- NOTE | 2025-07-22 11:18 | XR_ITS ---
FINAL REPORT CLINICAL HISTORY: PAIN COMPARISON: None FINDINGS: 3 views of the left shoulder show no evidence of acute displaced fracture or dislocation of the visualized bony architecture. The joint spaces appear normal. IMPRESSION: Unremarkable exam. Reviewed, Interpreted and Dictated by Jenny Hicks MD Transcribed by Gilda Sue Authenticated and [facility]
== END 2025-07-22 23:59 | disposition home or self-care (01) ==
LOC: RAD 11:12
PROVIDERS: PCP Chiropractor; Visit Provider Chiropractor
DX: M19.071 Primary osteoarthritis, right ankle and foot (principal); M19.011 Primary osteoarthritis, right shoulder; M19.012 Primary osteoarthritis, left shoulder
CPT/HCPCS: 73030; 73610